=== PATIENT | male | born 1955 | race Caucasian/White ===

== ENCOUNTER → 2023-10-20 | Outpatient (CLI) | payer BC ==
[2023-10-21 02:35] LABS: Basophils # (A) 0.04 X 10*3/uL (0.00-0.10); Basophils % (A) 0.5 %; Eosinophils # (A) 0.27 X 10*3/uL (0.04-0.35); Eosinophils % (A) 3.5 %; HCT 40.9 % (39.6-50.0); HGB 13.7 g/dL (13.0-17.0); Lymphocytes # (A) 1.42 X 10*3/uL (0.90-5.00); Lymphocytes % (A) 18.2 %; MCH 32.2 pg (27.0-32.0); MCHC 33.5 g/dL (32.0-37.0); MCV 96.2 FL (80.0-97.0); Mean Platelet Volume 11.1 FL (9.5-12.2); Monocytes # (A) 0.97 X 10*3/uL (0.20-1.00); Monocytes % (A) 12.4 %; NRBC Per 100 WBC 0 X 10*3/uL (0.00-0.01); Neutrophils # (A) 5.05 X 10*3/uL (1.80-7.70); Neutrophils % (A) 64.8 %; Platelet Count 242 X 10*3/uL (140-440); RBC 4.25 X 10*6/uL (4.40-5.60)
== END | disposition home or self-care (01) ==
LOC: LABPAT 16:14
PROVIDERS: ATTEND Orthopaedic Surgery
DX: Z01.818 Encounter for other preprocedural examination (principal); I49.3 Ventricular premature depolarization
CPT/HCPCS: 85025; 86850; 86900; 86901; 93005

== ENCOUNTER 2023-11-01 07:07 | Observation (INO) | payer BC ==
[2023-10-31 11:35] VITALS: BMI 22.5
[~2023-11-01 07:07] MED LIST: MIDAZOLAM 2 MG/2 ML VIAL IV PRN
[2023-11-01] MEDS: LACTATED RINGERS 1,000 ML IV SCH ×2 (08:00→14:50)
[2023-11-01] MEDS: DEXAMETHASONE SOD PHOSPHATE 4 MG/ML 1 ML VIAL IV ONE (08:16)
[2023-11-01] MEDS: ONDANSETRON 4 MG/2 ML VIAL IVP ONE ×2 (08:16→10:31)
[2023-11-01] MEDS: HEPARIN SODIUM,PORCINE 5,000 UNIT/ML 1 ML VIAL SQ PRN (08:16)
[2023-11-01] MEDS: ACETAMINOPHEN TAB 500 MG TAB PO PRN (08:16)
[2023-11-01] MEDS ORDERED: KETAMINE HCL IN 0.9 % NACL 50 MG/5 ML SYRINGE ONE (08:30)
[2023-11-01] MEDS ORDERED: KETOROLAC 15 MG/ML 1 ML VIAL ONE (08:30)
[2023-11-01] MEDS ORDERED: SUCCINYLCHOLINE CHLORIDE 200 MG/10 ML VIAL IV ONE (08:30)
[2023-11-01] MEDS ORDERED: NEOSTIGMINE 1 MG/ML 10 ML VIAL ONE (08:30)
[2023-11-01] MEDS ORDERED: PROPOFOL 10 MG/ML 20 ML VIAL IV ONE (08:30)
[2023-11-01] MEDS ORDERED: MIDAZOLAM 2 MG/2 ML VIAL ONE (08:30)
[2023-11-01] MEDS ORDERED: LIDOCAINE 1% INJ 10MG/ML (20 ML MDV) ONE (08:30)
[2023-11-01] MEDS ORDERED: fentaNYL (PF) 50 MCG/ML 2 ML AMP ONE (08:30)
[2023-11-01] MEDS ORDERED: ROCURONIUM 10 MG/ML (5 ML VIAL) IV ONE (08:30)
[2023-11-01] MEDS ORDERED: GLYCOPYRROLATE 0.2 MG/ML 2 ML VIAL ONE (08:30)
[2023-11-01] MEDS: LIDOCAINE 1%-EPI 1:100,000 20 ML VIAL SQ ONE (09:04)
[2023-11-01] MEDS ORDERED: HYDROmorphone 1 MG/ML 1 ML SYRINGE IVP PRN (09:37)
[2023-11-01] MEDS ORDERED: NALOXONE 0.4 MG/ML 1 ML VIAL IV PRN (09:37)
[2023-11-01] MEDS ORDERED: HYDROmorphone 0.5 MG/0.5 ML SYRINGE IVP PRN (09:37)
--- NOTE | 2023-11-01 09:37 | P.OP ---
Date of Procedure: 11/01/23 Preoperative Diagnosis: GERD Diaphragmatic hernia Postoperative Diagnosis: same Procedure(s) Performed: laparoscopic Babak fundal plication Anesthesia: JOSEPH Surgeon: David Ortega Estimated Blood Loss (ml): 5 Pathology: none sent Condition: stable Disposition: PACU Description of Procedure: The patient was placed on the operating table in the supine position. The patient received general anesthesia. And was placed in dorsal lithotomy position. The patient was prepped and draped in the usual sterile fashion. The skin incision sites were anesthetized with 1% local Xylocaine. The skin was incised in the left periumbilical area and then using a blade less 5 mm trocar under direct visualization panel cavity was entered. After adequate insufflation the laparoscope was then placed into the peritoneal cavity. Next a 5 mm trochars placed in the right epigastric position. Another 5 millimeter trocar the right lateral position. Another 5 millimeter trocar in the left lateral position a 5 mm trocar is placed in the left epigastric position. And then the initial 5 mm trocar was exchanged for a 10 mm trocar. The left lateral lobe liver was retracted. The hernia was seen. The crural defect was then dissected using the Harmonic scissors device. A 360 crural dissection was performed the esophagus stomach was reduced back into the peritoneal Cavity. The crural defect was then closed using 2-0 Ethibond suture. Next the fundus of the stomach was mobilized using the Richmond scissors device. and then a 58- Uzbek bougie dilator was placed oropharynx passed into the esophagus and stomach the fundal plication wrap was then performed by grasping the fundus posteriorly and bringing it around the esophagus and stomach fundoplication was then performed using 2-0 Ethibond suture. Care was taken that the fundal location rested over top of the intra-abdominal esophagus. There was no injury seen to the stomach or esophagus. The dilator was then withdrawn. The abdomen was irrigated there is no bleeding seen. The trochars were then withdrawn and then skin incision sites were closed using 3-0 Monocryl suture Steri-Strips are applied. Patient thought procedure well and sent to recovery room in stable condition.
[2023-11-01] MEDS: IV FLUID CONTINUATION 1,000 ML IV ONE (09:46)
[2023-11-01] MEDS: droPERidol 5 MG/2 ML VIAL IVP ONE (09:54)
[2023-11-01] MEDS: hydrALAZINE HCL 20 MG/ML 1 ML VIAL IV ONE (10:02)
[2023-11-01] MEDS: METOPROLOL TARTRATE 5 MG/5 ML VIAL IVP ONE (10:20)
[2023-11-01] MEDS: HYDROmorphone 0.5 MG/0.5 ML SYRINGE IVP PRN (10:44)
[2023-11-01] MEDS: LABETALOL 5 MG/ML VIAL MDV IV ONE ×2 (11:44)
[2023-11-01] MEDS: KETOROLAC 15 MG/ML 1 ML VIAL IVP SCH (13:52)
[2023-11-01] MEDS: SIMETHICONE 40 MG/0.6 ML DROPS 2,000 MG/30 ML BOTTLE PO SCH (14:48)
[2023-11-01] MEDS: ONDANSETRON 4 MG/2 ML VIAL IVP PRN (14:59)
[2023-11-01] MEDS: hydrALAZINE HCL 20 MG/ML 1 ML VIAL IVP STA (16:30)
[2023-11-02] MEDS: MULTIVITAMINS, THERA 1 EACH TAB PO SCH (08:13)
[2023-11-02] MEDS: ENOXAPARIN 40 MG/0.4 ML SYRINGE SQ SCH (08:13)
[2023-11-02] MEDS: PANTOPRAZOLE 40 MG TABLET PO SCH (08:13)
[2023-11-02] MEDS: HYDROcodone/APAP 5-325MG 1 EACH TAB PO PRN (08:20)
[2023-11-02 08:59] VITALS: RESP 20
[2023-11-02] MEDS: LOSARTAN 25 MG TAB PO STA (10:33)
[2023-11-02 11:06] LABS: African American GFR (CKD) >90 (>60 ml/min/1.73 sqM); Anion Gap 7 mmol/L; Blood Urea Nitrogen 6 mg/dL (9-20); Calcium 9.2 mg/dL (8.4-10.2); Carbon Dioxide 25 mmol/L (22-30); Chloride 96 mmol/L (98-107); Glucose 105 mg/dL (74-99); Magnesium 1.5 mg/dL (1.6-2.3); Non-African American GFR(CKD) >90 (>60 ml/min/1.73 sqM); Potassium 4.2 mmol/L (3.5-5.1); Sodium 128 mmol/L (137-145)
[2023-11-02] MEDS: hydrALAZINE HCL 25 MG TAB PO STA (11:18)
[2023-11-02] MEDS: MAGNESIUM SULFATE-D5W PMX 1 GM in DEXTROSE/WATER 1 100ML.BAG IVPB SCH (11:23)
[2023-11-02] MEDS: SODIUM CHLORIDE 0.9% 1,000 ML IV ONE (13:59)
[2023-11-02] MEDS: ACETAMINOPHEN TAB 325 MG TAB PO PRN (14:03)
[2023-11-02] MEDS: hydrALAZINE HCL 20 MG/ML 1 ML VIAL IVP PRN (14:03)
--- NOTE | 2023-11-02 14:55 | P.CONS ---
History of Present Illness - Reason for Consult Consult date: 11/02/23 medical management Requesting physician: David Ortega - Chief Complaint Hypertension - History of Present Illness This is a pleasant 68 year old male with medical history of lymphoma currently in remission, gastroesophageal reflux disease. Patient has had symptoms of marie sea and vomiting of gastric fluids since last April was found to have a large paraesophageal hiatal hernia and comes in for elective repair he is evaluated today postoperative day #1. Patient has been having elevated blood pressures 200s over 100s preoperatively. He remains elevated postoperatively denying any chest pain denying dizziness or lightheadedness he is not having any palpitations or shortness of breath. After further discussion patient reveals that he is a daily beer drinker states that he drinks about 3-4 beers per day if not more additionally he has an occasional marijuana use. He has not had a drink of alcohol in the last 2 days and may be contributing to the hypertension. Patient states that he has anxiety being in the hospital and feels this is also contributing to his blood pressure. He was given IV hydralazine as well as oral losartan and oral hydralazine and blood pressure is down into the 160s over 90s. His follow-up blood work reveals a sodium level of 128 and this is likely due to the chronic alcohol use. Discussed with patient the importance of total alc ohol cessation and patient verbalizes understanding. Patient does follow-up with a certified industrial hygienist, Dr Ferrari about every 6 months, states that about 2 years ago he was hospitalized at [facility] due to cardiac complications from chemotherapy and states that he was told he had congestive heart failure at that time. Echocardiogram reports are unavailable and patient does not appear to be in volume overload at this time. He reports significant improvement in his symptoms of nausea and acid reflux postoperatively and has been tolerating a liquid diet. He is anticipating discharge home today. REVIEW OF SYSTEMS: CO postNSTITUTIONAL: No fever, no malaise, no fatigue. HEENT: No recent visual problems or hearing problems. Denied any sore throat. CARDIOVASCULAR: No chest pain, orthopnea, PND, no palpitations, no syncope. PULMONARY: No shortness of breath, no cough, no hemoptysis. GASTROINTESTINAL: No diarrhea, no nausea, no vomiting, no abdominal pain. NEUROLOGICAL: No headaches, no weakness, no numbness. HEMATOLOGICAL: Denies any bleeding or petechiae. GENITOURINARY: Denies any burning micturition, frequency, or urgency. MUSCULOSKELETAL/RHEUMATOLOGICAL: Denies any joint pain, swelling, or any muscle pain. ENDOCRINE: Denies any polyuria or polydipsia. The rest of the 14-point review of systems is negative. PHYSICAL EXAMINATION: GENERAL: The patient is alert and oriented x3, not in any acute distress. Well developed, well nourished. HEENT: Pupils are round and equally reacting to light. EOMI. No scleral icterus. No conjunctival pallor. Normocephalic, atraumatic. No pharyngeal erythema. No thyromegaly. CARDIOVASCULAR: S1 and S2 present. No murmurs, rubs, or gallops. PULMONARY: Chest is clear to auscultation, no wheezing or crackles. ABDOMEN: Soft, nontender, nondistended, normoactive bowel sounds. No palpable organomegaly. MUSCULOSKELETAL: No joint swelling or deformity. EXTREMITIES: No cyanosis, clubbing, or pedal edema. NEUROLOGICAL: Gross neurological examination did not reveal any focal deficits. SKIN: No rashes. 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 Likely a component of anxiety from hospitalization. Patient has been started on amlodipine 5 mg daily and instructed to check his blood pressure daily. He is given parameters to hold medication for blood pressure less than 110/60s. Follow up with his certified industrial hygienist on discharge. -Hx of lymphoma with prior chemotherapy currently in remission -Former smoker -Occasional marijuana use GI prophylaxis DVT prophylaxis as per primary Full Code Medically patient is cleared for discharge with the above mentioned recommen dations. He will receive a 1 liter fluid bolus for the hyponatremia and recommend to repeat BMP in 2 to 3 days outpatient. Follow up closely with Dr. Tay in 1 to 2 days. Follow up with your known certified industrial hygienist Dr. Ferrari in 1 week on discharge. The impression and plan of care has been dictated by Juliana Lozada, Nurse Practitioner as directed. Dr. Nayan MD I have performed a history and physical examination and medical decision making of this patient, discussed the same with the dictator, and agree with the dictators assessment and plan as written, documented as a scribe. Based on total visit time, I have performed more than 50% of this visit. Past Medical History Past Medical History: Cancer, GERD/Reflux Additional Past Medical History / Comment(s): lymphoma 2021, nausea, vomiting symptoms since 03/26, hiatal hernia, sees certified industrial hygienist, Dr. Ferrari, every 6 months but states he has no cardiac problems - last visit 05/26 History of Any Multi-Drug Resistant Organisms: None Reported Additional Past Surgical History / Comment(s): EGD/colonoscopy, hemorrhoidecto my, mediport to right side. Past Anesthesia/Blood Transfusion Reactions: No Reported Reaction Past Psychological History: No Psychological Hx Reported Smoking Status: Former smoker Additional Past Alcohol Use History / Comment(s): quit smoking 2018, smoked 10- 15 cigarettes/day x 10 yrs Past Drug Use History: Marijuana Additional Drug Use History / Comment(s): smokes marijuana daily - Past Family History Sister(s) Family Medical History: Cancer Additional Family Medical History / Comment(s): unsure of type of cancer but thinks lymphoma Medications and Allergies Home Medications Medication Instructions Recorded Confirmed Type Acetaminophen Tab [Tylenol Tab] 1,000 mg PO Q6HR PRN 10/27/23 11/01/23 History Multivitamins, Thera [Multivitamin 1 tab PO DAILY 10/27/23 11/01/23 History (formulary)] Omeprazole 20 mg PO DAILY 10/27/23 11/01/23 History Prochlorperazine [Compazine] 10 mg PO Q6H PRN 10/27/23 11/01/23 History amLODIPine [Norvasc] 5 mg PO DAILY #30 tab 11/02/23 Rx Allergies Allergy/AdvReac Type Severity Reaction Status Date / Time No Known Allergies Allergy Verified 11/01/23 08:02 Physical Exam Vitals: Vital Signs Temp Pulse Resp BP Pulse Ox 11/02/23 07:35 98.9 F 82 20 165/100 98 11/02/23 01:32 98.6 F 96 16 147/87 100 11/01/23 17:12 98.1 F 101 H 20 186/91 99 11/01/23 16:13 197/106 11/01/23 13:54 97.6 F 113 H 20 209/125 98 11/01/23 12:51 77 16 164/88 99 11/01/23 12:45 96 16 180/91 99 11/01/23 12:15 85 16 159/88 100 11/01/23 12:00 88 16 173/92 100 11/01/23 11:45 107 H 16 163/80 100 11/01/23 11:30 109 H 16 179/89 100 11/01/23 11:15 106 H 16 176/88 100 11/01/23 11:00 104 H 16 180/91 100 11/01/23 10:45 82 16 182/86 100 11/01/23 10:30 120 H 16 185/82 100 11/01/23 10:15 92 16 195/106 100 11/01/23 10:00 83 16 211/98 100 Intake and Output 11/01/23 11/02/23 11/02/23 22:59 06:59 14:59 Intake Total 1500 Balance 1500 Intake: Intake, IV Titration 1500 Amount Lactated Ringers 1,000 ml 1500 @ 125 mls/hr IV .Q8H [facility] Rx#:[id number] Other: # Voids 2 4 Results CBC & Chem 7: 11/02/23 10:29
--- NOTE | 2023-11-02 15:01 | P.DS ---
Providers Date of admission: 11/02/23 11:29 Expected date of discharge: 11/02/23 Attending physician: David Ortega Consults: 11/01/23 09:37 Consult Physician Routine Consulting Provider: Luis Carlos Allan Consult Reason/Comments: medical management Do you want consulting provider notified?: Yes Primary care physician: Corine Tay MD Hospital Course: Discharge diagnosis 1. GERD and diaphragmatic hernia Hospital course This is a 68-year-old male with history of GERD and diaphragmatic hernia. He is status post laparoscopic Niesen fundoplication. Patient is tolerating diet. His pain is controlled. He has been up and ambulating. He is afebrile. Denies any difficulty urinating. He is stable for discharge. Patient seen and examined by medical service. They have also cleared patient for discharge. Please refer to chart for any further details. Physician Wheel Blocker note has been reviewed by physician. Signing provider agrees with the documented findings, assessment, and plan of care. Patient Condition at Discharge: Stable Plan - Discharge Summary Discharge Rx Participant: No New Discharge Prescriptions: New amLODIPine [Norvasc] 5 mg PO DAILY #30 tab HYDROcodone/APAP 5-325MG [[place] 5-325] 1 tab PO Q6HR PRN 3 Days #12 tab PRN Reason: Pain Continue Prochlorperazine [Compazine] 10 mg PO Q6H PRN PRN Reason: Nausea Acetaminophen Tab [Tylenol] 1,000 mg PO Q6HR PRN PRN Reason: Pain Multivitamins, Thera [Multivitamin (formulary)] 1 tab PO DAILY Omeprazole 20 mg PO DAILY Discharge Medication List Acetaminophen Tab [Tylenol] 1,000 mg PO Q6HR PRN 10/27/23 [History] Multivitamins, Thera [Multivitamin (formulary)] 1 tab PO DAILY 10/27/23 [History] Omeprazole 20 mg PO DAILY 10/27/23 [History] Prochlorperazine [Compazine] 10 mg PO Q6H PRN 10/27/23 [History] HYDROcodone/APAP 5-325MG [[place] 5-325] 1 tab PO Q6HR PRN 3 Days #12 tab 11/02/23 [Rx] amLODIPine [Norvasc] 5 mg PO DAILY #30 tab 11/02/23 [Rx] Follow up Appointment(s)/Referral(s): Jeanne Ferrari MD [REFERRING] - 1 Week Corine Tay MD [Primary Care Provider] - 1-2 Days David Ortega MD [STAFF PHYSICIAN] - 1 Week Ambulatory/Diagnostic Orders: Basic Metabolic Panel [LAB.AMB] Time Frame: 2 Days, Location: None Selected Activity/Diet/Wound Care/Special Instructions: Follow up with your car rental agent in 1 week on discharge. Continue on amlodipine daily and recommending to check your blood pressure daily in the AM. If blood pressure is below 110/60s recommend to hold the amlodipine for that daily dose. Keep a log of blood pressure for follow up with your PCP and car rental agent you may not need to continue taking this medication if your blood pressure normalizes. Repeat blood work in 2 to 3 days to monitor sodium level. No driving while taking [place] No lifting over 10 pounds You may shower. No soaking or tub baths for 2 weeks Very light activity until you are reevaluated at your follow up appointment with your surgeon Continue full liquid diet x 2 weeks Discharge/Stand Alone Forms: AA Meetings [facility] Discharge Disposition: HOME SELF-CARE
[2023-11-02] MEDS ORDERED: Potassium Replacement Protocol 1 EACH MISC MISCELLANE PRN (15:08)
[2023-11-02] MEDS: POTASSIUM CHLORIDE ER 20 MEQ TAB.ER PO ONE (15:16)
[2023-11-02 16:06] VITALS: BP 168/102; PULSE 93; TEMP 98.3
== END 2023-11-02 15:34 | disposition home or self-care (01) ==
LOC: OR 07:07 → 4SSUR 09:31 → OR 11-02 11:29 → 4SSUR 11-02 11:29
PROVIDERS: ADMIT Surgery; ATTEND Surgery
DX: K21.9 Gastro-esophageal reflux disease without esophagitis (principal); K44.9 Diaphragmatic hernia without obstruction or gangrene; K29.70 Gastritis, unspecified, without bleeding; E87.1 Hypo-osmolality and hyponatremia; I10 Essential (primary) hypertension; F12.90 Cannabis use, unspecified, uncomplicated; Z85.72 Personal history of non-Hodgkin lymphomas; Z87.891 Personal history of nicotine dependence; Z92.21 Personal history of antineoplastic chemotherapy; Z79.899 Other long term (current) drug therapy
CPT/HCPCS: 96376 ×2; 96361; 96365; 96366; 96372; 96375; 80048; 83735; 43280; G0378; J2250; J0330; J0360 ×2; J1644; J1100; J2710; J0690; J2405 ×2; J2001; J1650; J3010; J3475; J1885 ×2; J2704; J1170; J1790; J1920

== ENCOUNTER → 2024-01-20 | Outpatient (CLI) | payer BC ==
[2024-01-20 20:23] LABS: HCT 38.3 % (39.6-50.0); HGB 13.2 g/dL (13.0-17.0); MCHC 34.5 g/dL (32.0-37.0); Mean Platelet Volume 10.9 FL (9.5-12.2); NRBC Per 100 WBC 0 X 10*3/uL (0.00-0.01); Platelet Count 240 X 10*3/uL (140-440); RBC 4.12 X 10*6/uL (4.40-5.60); RDW 13.2 % (11.5-14.5); WBC 7.67 X 10*3/uL (4.50-10.00)
== END | disposition home or self-care (01) ==
LOC: LABPAT 13:56
PROVIDERS: ATTEND Surgery
DX: Z01.812 Encounter for preprocedural laboratory examination (principal)
CPT/HCPCS: 85027

== ENCOUNTER 2024-01-24 05:37 | Day surgery (SDC) | payer BC ==
[2024-01-18 13:23] VITALS: BMI 22.3
[2024-01-24] MEDS ORDERED: droPERidol 5 MG/2 ML VIAL IVP ONE (05:46)
[2024-01-24] MEDS ORDERED: LIDOCAINE 1% (10MG/ML) FOR IV START INTRADERMA PRN (05:46)
[2024-01-24 06:30] VITALS: TEMP 97.2
[2024-01-24] MEDS: LACTATED RINGERS 1,000 ML IV SCH (06:50)
[2024-01-24] MEDS: DEXAMETHASONE SOD PHOSPHATE 4 MG/ML 1 ML VIAL IV ONE (06:50)
[2024-01-24] MEDS: IV FLUID CONTINUATION 1,000 ML IV ONE ×2 (06:50→11:39)
[2024-01-24] MEDS: ONDANSETRON 4 MG/2 ML VIAL IVP ONE (06:50)
[2024-01-24] MEDS: MIDAZOLAM 2 MG/2 ML VIAL IVP ONE (06:57)
--- NOTE | 2024-01-24 07:12 | P.ANPRN ---
Procedure Note - Anesthesia - Nerve Block Performed Bilateral Rectus Abdominis Single Time Out Performed: Yes Date of Procedure: 01/24/24 Procedure Start Time: 06:57 Procedure Stop Time: 07:02 Location of Patient: PreOp Indication: Acute Post-Operative Pain, Analgesia, Requested by Surgeon Sedation Type: Sedate with meaningful contact maintained Preparation: Sterile Prep Position: Supine Catheter: None Needle Types: Pajunk Needle Gauge: 21 Ultrasound used to visualize needle placement: Yes Ultrasound used to observe medication spread: Yes Injectate: 0.5% Ropivacaine (see comment for volume) (Ropiv 18ml+Decadron 4mg---Each side) Blood Aspirated: No Pain Paresthesia on Injection Noted: No Resistance on Injection: Normal Image Stored and Saved: Yes Events: Uneventful and Well Tolerated
[2024-01-24] MEDS ORDERED: SUCCINYLCHOLINE CHLORIDE 200 MG/10 ML VIAL IV ONE (07:34)
[2024-01-24] MEDS ORDERED: KETAMINE HCL IN 0.9 % NACL 50 MG/5 ML SYRINGE ONE (07:34)
[2024-01-24] MEDS ORDERED: NEOSTIGMINE 1 MG/ML 10 ML VIAL ONE (07:34)
[2024-01-24] MEDS ORDERED: ROCURONIUM 10 MG/ML (5 ML VIAL) IV ONE (07:34)
[2024-01-24] MEDS ORDERED: PROPOFOL 10 MG/ML 20 ML VIAL IV ONE (07:34)
[2024-01-24] MEDS ORDERED: fentaNYL (PF) 50 MCG/ML 2 ML AMP ONE (07:34)
[2024-01-24] MEDS ORDERED: KETOROLAC 15 MG/ML 1 ML VIAL ONE (07:34)
[2024-01-24] MEDS ORDERED: LIDOCAINE 1% INJ 10MG/ML (20 ML MDV) ONE (07:34)
[2024-01-24] MEDS ORDERED: DEXAMETHASONE SOD PHOSPHATE 4 MG/ML 1 ML VIAL ONE (07:34)
[2024-01-24] MEDS ORDERED: ROPIVACAINE 5 MG/ML 30 ML VIAL ONE (07:34)
[2024-01-24] MEDS ORDERED: MIDAZOLAM 2 MG/2 ML VIAL ONE (07:34)
[2024-01-24] MEDS ORDERED: GLYCOPYRROLATE 0.2 MG/ML 2 ML VIAL ONE (07:34)
[2024-01-24] MEDS: ACETAMINOPHEN TAB 500 MG TAB PO PRN (07:35)
[2024-01-24] MEDS: LIDOCAINE 1%-EPI 1:100,000 20 ML VIAL SQ ONE ×2 (07:37→07:55)
[2024-01-24] MEDS: HEPARIN SODIUM,PORCINE 5,000 UNIT/ML 1 ML VIAL SQ STA (07:39)
--- NOTE | 2024-01-24 08:44 | P.GSHP ---
History of Present Illness H&P Date: 01/24/24 Chief Complaint: Ventral hernia This is a 68-year-old male with a 3 cm epigastric ventral hernia. Patient presents today for laparoscopic robotic assisted repair. Past Medical History Past Medical History: Cancer, GERD/Reflux, Hearing Disorder / Deafness Additional Past Medical History / Comment(s): Stomach pain and nausea daily around 2-3 am. Hx Lymphoma 2021. Nausea, vomiting symptoms since 03/26. Hard of hearing. History of Any Multi-Drug Resistant Organisms: None Reported Additional Past Surgical History / Comment(s): EGD/colonoscopy, hemorrhoidectom y, mediport to right side, hiatal hernia repair. Past Anesthesia/Blood Transfusion Reactions: No Reported Reaction Past Psychological History: No Psychological Hx Reported Smoking Status: Former smoker Past Alcohol Use History: Occasional Additional Past Alcohol Use History / Comment(s): Quit smoking in 2018, smoked 10-15 cigarettes/day for 10 yrs. Past Drug Use History: Marijuana Additional Drug Use History / Comment(s): Smokes marijuana daily. Aware no use 24 hrs prior to procedure. - Past Family History Sister(s) Family Medical History: Cancer Additional Family Medical History / Comment(s): Unsure of type of cancer but thinks lymphoma. Medications and Allergies Home Medications Medication Instructions Recorded Confirmed Type Prochlorperazine [Compazine] 10 mg PO Q6H PRN 10/27/23 01/24/24 History Allergies Allergy/AdvReac Type Severity Reaction Status Date / Time No Known Allergies Allergy Verified 01/24/24 06:26 Surgical - Exam Vital Signs Temp Pulse Resp BP Pulse Ox 97.2 F L 83 18 161/95 100 01/24/24 06:27 01/24/24 06:27 01/24/24 06:27 01/24/24 06:27 01/24/24 06:27 - General well developed, well nourished, no distress - Eyes PERRL - ENT normal pinna - Neck no masses - Respiratory normal expansion - Cardiovascular Rhythm: regular - Abdomen Abdomen: soft, non tender Assessment and Plan Assessment: Ventral hernia. Will perform laparoscopic robotic assisted repair.
--- NOTE | 2024-01-24 08:46 | P.OP ---
Date of Procedure: 01/24/24 Preoperative Diagnosis: Ventral hernia Postoperative Diagnosis: Ventral hernia Procedure(s) Performed: Laparoscopic robotic assisted pair of ventral hernia Transversus abdominis plane block Anesthesia: JOSEPH Surgeon: David Ortega Estimated Blood Loss (ml): 5 Pathology: none sent Condition: stable Disposition: PACU Description of Procedure: The patient was placed on the operating table in the supine position. He received general anesthesia. His abdomen was prepped and draped usual fashion. Using a 5 mm optical trocar under direct visualization the peritoneal cavity was entered in the left upper quadrant. The abdomen was then insufflated. The laparoscope was placed back into the perineal cavity. Next a 12 mm robotic trocar was placed in the left lower quadrant and a 8 mm robotic trocar was placed near the umbilicus. Tion. The original 5 mm trocar was exchanged for a 8 mm robotic trocar. The patient's placed in the left side up position. And the patient was docked to the robot. The ventral hernia was visualized. Using hook cautery the peritoneum over the incisional hernia was excised. The fascial opening was repaired using 0V LOC suture. Next a piece of 11 cm round ventral light ST mesh was placed into the. Cavity and secured with 2 OV lock suture. A four-quadrant transversus abdominis plane block was then performed with 1% local Xylocaine. The patient was undocked the robot. The needles were retrieved. The fascia of the 12 mm trocar site was closed with 0 Ethibond suture. Skin was closed interrupted 3-0 Monocryl suture. Dermabond dressings was applied. Patient tolerated procedure well and was sent to recovery room stable condition.
[2024-01-24] MEDS: HYDROmorphone 0.5 MG/0.5 ML SYRINGE IVP PRN (08:54)
[2024-01-24] MEDS: LABETALOL SYRINGE 5 MG/ML (4 ML SYR) IVP STA (09:06)
[2024-01-24 09:53] VITALS: RESP 16
[2024-01-24 11:36] VITALS: BP 171/99; PULSE 65
== END 2024-01-24 12:24 | disposition home or self-care (01) ==
LOC: OR 05:37
PROVIDERS: ATTEND Surgery
DX: K43.9 Ventral hernia without obstruction or gangrene (principal); K21.9 Gastro-esophageal reflux disease without esophagitis; I25.42 Coronary artery dissection; C00-D49 Neoplasms; H91.90 Unspecified hearing loss, unspecified ear; Z85.9 Personal history of malignant neoplasm, unspecified; Z87.891 Personal history of nicotine dependence; Z86.59 Personal history of other mental and behavioral disorders; Z79.899 Other long term (current) drug therapy
CPT/HCPCS: 64488; 49593; C1781; J2250; J0330; J1644; J1100; J2710; J0690; J2405; J2001; J3010; J2795; J1885; J2704; J1170; J1920; J1596

== ENCOUNTER 2024-01-25 02:51 | Inpatient (IN) | payer BC, MEDICARE ==
--- NOTE | 2024-01-25 03:38 | ED ---
Nausea/Vomiting/Diarrhea HPI <Andres Christian - Last Filed: 01/25/24 08:50> - General Source: patient, RN notes reviewed, old records reviewed Mode of arrival: ambulatory Limitations: no limitations - History of Present Illness MD complaint: nausea, vomiting, abdominal pain -: days(s) Description of Vomiting: food contents Description of Diarrhea: water, tarry Location: diffuse Severity: moderate Severity scale (1-10): 6 Quality: sharp, constant Consistency: constant Improves with: none Worsens with: none Associated Symptoms: denies other symptoms <Elliot Wright - Last Filed: 01/26/24 22:23> - General Chief complaint: Nausea/Vomiting/Diarrhea Stated complaint: post surgery complications, N&V, pain Time Seen by Provider: 01/25/24 03:01 - History of Present Illness Initial comments: This is a 68-year-old male to the ER for evaluation postoperative pain abdominal pain no chest pain or shortness of breath no other complaints, this patient has increasing weakness after recent abdominal surgery with Dr. Chau. Patient had hiatal hernia followed by abdominal wall hernia repair. Patient is having persistent weakness and severe abdominal pain today (Elliot Wright) - Related Data Home Medications Medication Instructions Recorded Confirmed Prochlorperazine [Compazine] 10 mg PO Q6H PRN 10/27/23 01/25/24 Simethicone [Gas-X] 125 mg PO QID PRN 01/25/24 01/25/24 Previous Rx's Medication Instructions Recorded oxyCODONE HCL [OxyIR] 5 mg PO Q6H PRN 3 Days #15 tab 01/24/24 Allergies Allergy/AdvReac Type Severity Reaction Status Date / Time No Known Allergies Allergy Verified 01/25/24 10:07 Review of Systems ROS Other: All systems not noted in ROS Statement are negative. <Andres Christian - Last Filed: 01/25/24 08:50> ROS Other: All systems not noted in ROS Statement are negative. <Elliot Wright - Last Filed: 01/26/24 22:23> ROS Statement: Those systems with pertinent positive or pertinent negative responses have been documented in the HPI. Past Medical History Past Medical History: Cancer, GERD/Reflux, Hearing Disorder / Deafness Additional Past Medical History / Comment(s): Stomach pain and nausea daily around 2-3 am. Hx Lymphoma 2021. Nausea, vomiting symptoms since 03/26. Hard of hearing. History of Any Multi-Drug Resistant Organisms: None Reported Past Surgical History: Hernia Repair Additional Past Surgical History / Comment(s): EGD/colonoscopy, hemorrhoidectomy, mediport to right side, hiatal hernia repair. Past Anesthesia/Blood Transfusion Reactions: No Reported Reaction Past Psychological History: No Psychological Hx Reported Smoking Status: Former smoker Past Alcohol Use History: Occasional Past Drug Use History: Marijuana - Past Family History Sister(s) Family Medical History: Cancer Additional Family Medical History / Comment(s): Unsure of type of cancer but thinks lymphoma. <Elliot Wright - Last Filed: 01/26/24 22:23> General Exam Limitations: no limitations General appearance: alert, in no apparent distress, anxious, lethargic, in distress, cachectic Head exam: Present: atraumatic, normocephalic, normal inspection Eye exam: Present: normal appearance, PERRL, EOMI. Absent: scleral icterus, conjunctival injection, periorbital swelling ENT exam: Present: normal exam, mucous membranes moist Neck exam: Present: normal inspection. Absent: tenderness, meningismus, lymphadenopathy Respiratory exam: Present: normal lung sounds bilaterally. Absent: respiratory distress, wheezes, rales, rhonchi, stridor Cardiovascular Exam: Present: regular rate, normal rhythm, normal heart sounds. Absent: systolic murmur, diastolic murmur, rubs, gallop, clicks GI/Abdominal exam: Present: soft, normal bowel sounds. Absent: distended, tenderness, guarding, rebound, rigid Extremities exam: Present: normal inspection, full ROM, normal capillary refill. Absent: tenderness, pedal edema, joint swelling, calf tenderness Back exam: Present: normal inspection Neurological exam: Present: alert, oriented X3, CN II-XII intact Psychiatric exam: Present: normal affect, normal mood Skin exam: Present: warm, dry, intact, normal color. Absent: rash <Elliot Wright - Last Filed: 01/26/24 22:23> Course <Elliot Wright - Last Filed: 01/26/24 22:23> Vital Signs 07/01/25/24 01/25/24 02:56 03:30 04:45 Temperature 97.9 F Pulse Rate 105 H 80 98 Respiratory 18 20 18 Rate Blood Pressure 151/104 129/72 124/80 O2 Sat by Pulse 100 96 98 Oximetry 01/25/24 01/25/24 01/25/24 06:58 09:00 10:00 Temperature Pulse Rate 71 89 81 Respiratory 18 16 18 Rate Blood Pressure 115/72 108/72 110/74 O2 Sat by Pulse 99 99 99 Oximetry - Reevaluation(s) Reevaluation #1: 01/25/24 03:37 Records reviewed (Elliot Wright) Reevaluation #2: States he is starting to feel improved (Elliot Wright) Reevaluation #3: Informed of results and questions answered (Elliot Wright) Reevaluation #4: Was pt. sent in by a medical professional or institution (, PA, AGRICULTURE LABORATORY TECHNICIAN, urgent care, hospital, or shelter...) When possible be specific @ -no Did you speak to anyone other than the patient for history (EMS, parent, family, police, friend...)? What history was obtained from this source @ -no Did you review nursing and triage notes (agree or disagree)? Why? @ -agree Are old charts reviewed (outside hosp., previous admission, EMS record, old EKG, old radiological studies, urgent care reports/EKG's, shelter records)? Report findings @ -yes Differential Diagnosis (chest pain, altered mental status, abdominal pain women, abdominal pain men, vaginal bleeding, weakness, fever, dyspnea, syncope, headache, dizziness, GI bleed, back pain, seizure, CVA, palpatations, mental health, musculoskeletal)? @ -prior EKG interpreted by me (3pts min.). @ -yes X-rays interpreted by me (1pt min.). @ -yes negative for acute disease CT interpreted by me (1pt min.). @ -Negative for acute disease U/S interpreted by me (1pt. min.). @ -no What testing was considered but not performed or refused? (CT, X-rays, U/S, labs)? Why? @ -none What meds were considered but not given or refused? Why? @ -none Did you discuss the management of the patient with other professionals (professionals i.e. , PA, AGRICULTURE LABORATORY TECHNICIAN, lab, RT, psych nurse, social media content specialist, farmworker vegetable, teacher, public service officer, community case manager)? Give summary @ -no Was smoking cessation discussed for >3mins.? @ -no Was critical care preformed (if so, how long)? @ -no Were there social determinants of health that impacted care today? How? (Homelessness, low income, unemployed, alcoholism, drug addiction, transportation, low edu. Level, literacy, decrease access to med. care, care home, rehab)? @ -none Was there de-escalation of care discussed even if they declined (Discuss DNR or withdrawal of care, Hospice)? DNR status @ -no What co-morbidities impacted this encounter? (DM, HTN, Smoking, COPD, CAD, Cancer, CVA, ARF, Chemo, Hep., AIDS, mental health diagnosis, sleep apnea, morbid obesity)? @ -none Was patient admitted / discharged? Hospital course, mention meds given and route, prescriptions, significant lab abnormalities, going to OR and other pertinent info. @ - 68 male to ER for evaluation abdominal pain nausea vomiting weakness recent surgical treatment of the abdomen with decreased appetite patient has been not feeling well getting progressively worse patient will be admitted for elevated troponin non-STEMI Admitted Undiagnosed new problem with uncertain prognosis? @ -no Drug Therapy requiring intensive monitoring for toxicity (Heparin, Nitro, Insul in, Cardizem)? @ -no Were any procedures done? @ -no Diagnosis/symptom? @ -non-STEMI weakness dehydration postoperative complication and pain Acute, or Chronic, or Acute on Chronic? @ -Acute Uncomplicated (without systemic symptoms) or Complicated (systemic symptoms)? @ -Complicated Side effects of treatment? @ -no Exacerbation, Progression, or Severe Exacerbation? @ -exacerbation Poses a threat to life or bodily function? How? (Chest pain, USA, AL, pneumonia, PE, COPD, DKA, ARF, appy, cholecystitis, CVA, Diverticulitis, Homicidal, Suicidal, threat to staff... and all critical care pts) @ -ye nstemi (Elliot Wright) Reevaluation #5: Differential Weakness: Hypoglycemia, shock, sepsis, hyponatremia, anemia, infection, AL, ETOH, adverse medicine reaction, overdose, stroke, this is not meant to be an all-inclusive list. (Elliot Wright) - Consultations Consultation #1: With admitting who agrees to admit this patient (Elliot Wright) Medical Decision Making - Lab Data Result diagrams: 01/25/24 04:02 01/25/24 04:02 <Andres Christian - Last Filed: 01/25/24 08:50> - Lab Data Result diagrams: 01/26/24 07:15 01/26/24 07:15 - EKG Data -: EKG Interpreted by Me (Is sinus 83 ME 173 QRS 114 QTc 467) - Radiology Data Radiology results: report reviewed (Chest x-ray CT chest abdomen pelvis negative for acute disease), image reviewed <Elliot Wright - Last Filed: 01/26/24 22:23> - Medical Decision Making Patient care signed out to me by previous shift physician, Dr. Martinez Mane. Briefly, patient 68-year-old male presents emergency department abdominal pain. Patient had recent history of significant abdominal surgeries performed by Dr. Ortega. According to signout patient did not have any chest pain or shortness of breath. He did have abnormal labs including leukocytosis, hyponatremia troponin of 0.529, BNP of 9000. He also had a lactic acidosis of 3.2. Plan at signout was to follow-up with pending labs and imaging studies. There is been extreme delays in CT radiology reads. Initial troponin was 0.529. Repeat troponin 2 hours later was 0.493. Patient reevaluated bedside at 8:49 AM. Patient interviewed states that he at no point within the last 48 hours had any chest pain shortness of breath jaw pain extremity pain or shoulder pain. He states that he is here for abdominal pain. Patient had already received IV fluids. Second troponin was decreased. Disposition options were discussed. Initially was apprehensive about being admitted for medical monitoring. Ultimately after having his conversation with his he was agreeable. Patient will be admitted observation. At this point it is unclear what is causing patient's significantly elevated troponin. He will be admitted observation consultation to cardiology. Case discussed with [facility] hospitalist for admission. (Andres Christian) 68 male to ER for evaluation abdominal pain nausea vomiting weakness recent surgical treatment of the abdomen with decreased appetite patient has been not feeling well getting progressively worse patient will be admitted for elevated troponin non-STEMI (Elliot Wright) - Lab Data Lab Results 01/25/24 01/25/24 01/25/24 Range/Units 04:02 04:02 04:02 WBC 14.5 H (3.8-10.6) k/uL RBC 4.47 (4.30-5.90) m/uL Hgb 14.2 (13.0-17.5) gm/dL Hct 43.3 (39.0-53.0) % MCV 96.9 (80.0-100.0) fL MCH 31.8 (25.0-35.0) pg MCHC 32.8 (31.0-37.0) g/dL RDW 12.8 (11.5-15.5) % Plt Count 220 (150-450) k/uL MPV 8.0 Neutrophils % 86 % Lymphocytes % 5 % Monocytes % 7 % Eosinophils % 1 % Basophils % 0 % Neutrophils # 12.4 H (1.3-7.7) k/uL Lymphocytes # 0.7 L (1.0-4.8) k/uL Monocytes # 1.1 H (0-1.0) k/uL Eosinophils # 0.2 (0-0.7) k/uL Basophils # 0.0 (0-0.2) k/uL PT 11.6 (10.0-12.5) sec INR 1.1 (<1.2) APTT 22.7 (22.0-30.0) sec D-Dimer 0.55 (<0.60) mg/L FEU Sodium 123 L (137-145) mmol/L Potassium 4.4 (3.5-5.1) mmol/L Chloride 94 L (98-107) mmol/L Carbon Dioxide 18 L (22-30) mmol/L Anion Gap 11 mmol/L BUN 7 L (9-20) mg/dL Creatinine 0.41 L (0.66-1.25) mg/dL Est GFR (CKD-EPI)AfAm >90 (>60 ml/min/1.73 sqM) Est GFR (CKD-EPI)NonAf >90 (>60 ml/min/1.73 sqM) Glucose 127 H (74-99) mg/dL Lactic Ac Sepsis Rflx Plasma Lactic Acid Michael (0.7-2.0) mmol/L Calcium 8.8 (8.4-10.2) mg/dL Phosphorus 3.3 (2.5-4.5) mg/dL Magnesium 1.2 L (1.6-2.3) mg/dL Total Bilirubin 1.1 (0.2-1.3) mg/dL AST 36 (17-59) U/L ALT 14 (4-49) U/L Alkaline Phosphatase 71 (38-126) U/L Troponin I (0.000-0.034) ng/mL NT-Pro-B Natriuret Pep 9730 pg/mL Total Protein 6.7 (6.3-8.2) g/dL Albumin 4.0 (3.5-5.0) g/dL Lipase 20 L (23-300) U/L 01/25/24 01/25/24 01/25/24 Range/Units 04:02 05:23 05:58 WBC (3.8-10.6) k/uL RBC (4.30-5.90) m/uL Hgb (13.0-17.5) gm/dL Hct (39.0-53.0) % MCV (80.0-100.0) fL MCH (25.0-35.0) pg MCHC (31.0-37.0) g/dL RDW (11.5-15.5) % Plt Count (150-450) k/uL MPV Neutrophils % % Lymphocytes % % Monocytes % % Eosinophils % % Basophils % % Neutrophils # (1.3-7.7) k/uL Lymphocytes # (1.0-4.8) k/uL Monocytes # (0-1.0) k/uL Eosinophils # (0-0.7) k/uL Basophils # (0-0.2) k/uL PT (10.0-12.5) sec INR (<1.2) APTT (22.0-30.0) sec D-Dimer (<0.60) mg/L FEU Sodium (137-145) mmol/L Potassium (3.5-5.1) mmol/L Chloride (98-107) mmol/L Carbon Dioxide (22-30) mmol/L Anion Gap mmol/L BUN (9-20) mg/dL Creatinine (0.66-1.25) mg/dL Est GFR (CKD-EPI)AfAm (>60 ml/min/1.73 sqM) Est GFR (CKD-EPI)NonAf (>60 ml/min/1.73 sqM) Glucose (74-99) mg/dL Lactic Ac Sepsis Rflx Y Plasma Lactic Acid Michael 3.2 H* (0.7-2.0) mmol/L Calcium (8.4-10.2) mg/dL Phosphorus (2.5-4.5) mg/dL Magnesium (1.6-2.3) mg/dL Total Bilirubin (0.2-1.3) mg/dL AST (17-59) U/L ALT (4-49) U/L Alkaline Phosphatase (38-126) U/L Troponin I 0.529 H* (0.000-0.034) ng/mL NT-Pro-B Natriuret Pep pg/mL Total Protein (6.3-8.2) g/dL Albumin (3.5-5.0) g/dL Lipase (23-300) U/L // Range/Units 06:12 WBC (3.8-10.6) k/uL RBC (4.30-5.90) m/uL Hgb (13.0-17.5) gm/dL Hct (39.0-53.0) % MCV (80.0-100.0) fL MCH (25.0-35.0) pg MCHC (31.0-37.0) g/dL RDW (11.5-15.5) % Plt Count (150-450) k/uL MPV Neutrophils % % Lymphocytes % % Monocytes % % Eosinophils % % Basophils % % Neutrophils # (1.3-7.7) k/uL Lymphocytes # (1.0-4.8) k/uL Monocytes # (0-1.0) k/uL Eosinophils # (0-0.7) k/uL Basophils # (0-0.2) k/uL PT (10.0-12.5) sec INR (<1.2) APTT (22.0-30.0) sec D-Dimer (<0.60) mg/L FEU Sodium (137-145) mmol/L Potassium (3.5-5.1) mmol/L Chloride (98-107) mmol/L Carbon Dioxide (22-30) mmol/L Anion Gap mmol/L BUN (9-20) mg/dL Creatinine (0.66-1.25) mg/dL Est GFR (CKD-EPI)AfAm (>60 ml/min/1.73 sqM) Est GFR (CKD-EPI)NonAf (>60 ml/min/1.73 sqM) Glucose (74-99) mg/dL Lactic Ac Sepsis Rflx Plasma Lactic Acid Michael (0.7-2.0) mmol/L Calcium (8.4-10.2) mg/dL Phosphorus (2.5-4.5) mg/dL Magnesium (1.6-2.3) mg/dL Total Bilirubin (0.2-1.3) mg/dL AST (17-59) U/L ALT (4-49) U/L Alkaline Phosphatase (38-126) U/L Troponin I 0.493 H* (0.000-0.034) ng/mL NT-Pro-B Natriuret Pep pg/mL Total Protein (6.3-8.2) g/dL Albumin (3.5-5.0) g/dL Lipase (23-300) U/L Disposition Decision Time: 08:51 <Andres Christian - Last Filed: 01/25/24 08:50> <Elliot Wright - Last Filed: 01/26/24 22:23> Clinical Impression: Elevated troponin, Abdominal pain, Weakness, Dehydration, Hypomagnesemia, Nausea & vomiting Disposition: ADMITTED IP TO THIS HOSP Condition: Fair
[2024-01-25 04:16] LABS: Basophils % (A) 0 %; Eosinophils # (A) 0.2 k/uL (0-0.7); Eosinophils % (A) 1 %; HCT 43.3 % (39.0-53.0); HGB 14.2 gm/dL (13.0-17.5); Lymphocytes # (A) 0.7 k/uL (1.0-4.8); Lymphocytes % (A) 5 %; MCH 31.8 pg (25.0-35.0); MCHC 32.8 g/dL (31.0-37.0); MCV 96.9 fL (80.0-100.0); Monocytes # (A) 1.1 k/uL (0-1.0); Monocytes % (A) 7 %; Neutrophils # (A) 12.4 k/uL (1.3-7.7); Neutrophils % (A) 86 %; Platelet Count 220 k/uL (150-450); RBC 4.47 m/uL (4.30-5.90); RDW 12.8 % (11.5-15.5); WBC 14.5 k/uL (3.8-10.6)
[2024-01-25 04:30] LABS: ALT 14 U/L (4-49); African American GFR (CKD) >90 (>60 ml/min/1.73 sqM); Anion Gap 11 mmol/L; Blood Urea Nitrogen 7 mg/dL (9-20); Calcium 8.8 mg/dL (8.4-10.2); Carbon Dioxide 18 mmol/L (22-30); Chloride 94 mmol/L (98-107); Glucose 127 mg/dL (74-99); Lipase 20 U/L (23-300); Non-African American GFR(CKD) >90 (>60 ml/min/1.73 sqM); Sodium 123 mmol/L (137-145); Total Bilirubin 1.1 mg/dL (0.2-1.3); Total Protein 6.7 g/dL (6.3-8.2)
[2024-01-25 04:35] LABS: AST 36 U/L (17-59); Alkaline Phosphatase 71 U/L (38-126); Magnesium 1.2 mg/dL (1.6-2.3); Phosphorus 3.3 mg/dL (2.5-4.5); Potassium 4.4 mmol/L (3.5-5.1)
[2024-01-25 04:39] LABS: NT-Pro-B-Type Natriuretic Pept 9730 pg/mL
[2024-01-25] MEDS: ONDANSETRON 4 MG/2 ML VIAL IVP STA (04:50)
[2024-01-25] MEDS: SODIUM CHLORIDE 0.9% 1,000 ML IV STA ×2 (04:50→07:00)
[2024-01-25] MEDS: diphenhydrAMINE 50 MG/ML 1 ML VIAL IVP STA (04:52)
[2024-01-25 04:53] LABS: INR 1.1 (<1.2); Partial Thromboplastin Time 22.7 sec (22.0-30.0); Prothrombin Time 11.6 sec (10.0-12.5)
[2024-01-25] MEDS: MORPHINE SULFATE 4 MG/ML SYRINGE IV STA (04:54)
[2024-01-25] MEDS: HYDROmorphone 1 MG/ML 1 ML SYRINGE IVP STA (04:54)
--- NOTE | 2024-01-25 06:46 | XR ---
EXAM: XR Chest, 1 View CLINICAL HISTORY: Reason: pain TECHNIQUE: Frontal view of the chest. COMPARISON: No relevant prior studies available. FINDINGS: Lungs: Lung volumes are within normal limits. There is scarring versus developing right perihilar airspace consolidation or infiltrating mass. Prominent interstitial markings suggestive of mild pulmonary edema. Pleural space: No pneumothorax. Heart: Heart size normal. Mediastinum: No mediastinal widening or shift. Right anterior chest wall Mediport, with the catheter tip in the proximal SVC. Bones/joints: Unremarkable. No acute fracture. IMPRESSION: Parenchymal scarring versus right perihilar airspace consolidation or infiltrating mass. Mild pulmonary edema.
--- NOTE | 2024-01-25 06:48 | XR ---
EXAM: XR Abdomen, 2 Views CLINICAL HISTORY: Reason: abdominal pain TECHNIQUE: Frontal view of the abdomen/pelvis with upright view of the abdomen. COMPARISON: No relevant prior studies available. FINDINGS: Intraperitoneal space: Mild free air is seen under the diaphragm, consistent with pneumoperitoneum. Gastrointestinal tract: Bowel gas pattern is nonobstructive. Bones/joints: No evidence of acute osseous abnormality. IMPRESSION: Mild pneumoperitoneum. Please correlate if patient has had recent abdominal surgery. Absent this history, findings are concerning for bowel perforation. No evidence of bowel obstruction.
--- NOTE | 2024-01-25 07:40 | CT ---
EXAMINATION TYPE: CT angio chest DATE OF EXAM: 01/25/2024 COMPARISON: None HISTORY: post hernia repair. states n, v. CT DLP: 432.5 mGycm CONTRAST: CT chest with contrast and 3D reconstruction with MIP imaging is performed with IV Contrast, patient injected with 100 mL of Isovue 370. Contrast-enhanced CT of the chest was performed through the course of the pulmonary arteries with bandar g and mediastinal window settings submitted. 3D reconstruction with MIP imaging was also performed. PULMONARY ARTERIES: The pulmonary arteries and their major tributaries are patent. I do not see carmita dence for sizable filling defect to suggest pulmonary embolic process. LUNGS: The lungs are clear and free of infiltrate. No evidence for atelectasis. No pulmonary nodule or mass is detected. Small bilateral pleural effusions identified. MEDIASTINUM: Uncomplicated ascend ing thoracic aortic aneurysm measuring 4.4 cm AP dimension. The heart is not enlarged. No evidence f or mediastinal mass. No mediastinal lymph nodes greater than 1cm. HILAR STRUCTURES: No evidence for mass. No hilar lymph nodes greater than 1 cm. UPPER ABDOMEN: No significant abnormality is seen. IMPRESSION: 1. No evidence for Pulmonary embolism at this time.
[2024-01-25] MEDS: MAGNESIUM SULFATE-D5W PMX 1 GM in DEXTROSE/WATER 1 100ML.BAG IVPB SCH (07:41)
--- NOTE | 2024-01-25 07:43 | CT ---
EXAMINATION TYPE: CT abdomen pelvis w con DATE OF EXAM: 01/25/2024 COMPARISON: None HISTORY: post hernia repair. states n, v. CT DLP: 1294.9 mGycm CONTRAST: CT scan of the abdomen and pelvis is performed without Oral Contrast and with IV Contrast, patient in jected with 100 mL of Isovue 370. FINDINGS: LUNG BASES-: No visible nodule. No infiltrate. LIVER/GB: No calcified gallstones. No space occupying hepatic lesion. Biliary tree is of normal ca liber. PANCREAS: No inflammation. No distinct mass. SPLEEN: No splenic enlargement. No lesion seen. ADRENALS: No nodule. No thickening. KIDNEYS/BLADDER: No hydronephrosis. No nephrolithiasis. No distinct renal mass. Urinary bladder g rossly unremarkable. BOWEL: There is moderate free air seen within the abdomen. This correlate clinically with postoperati ve timeline. There is subcutaneous air noted as well as intramuscular air in a patient who is status post herniorrhaphy. 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 Small and large bowel are of normal caliber. Normal appendix. Normal bowel caliber. No inflammation. GENITAL ORGANS: No gross abnormality. LYMPH NODES: No greater than 1cm abdominal or pelvic lymph nodes are appreciated. AORTA: No significant abnormality. OSSEOUS STRUCTURES: No significant abnormality is seen. OTHER: No significant additional abnormality is seen. IMPRESSION: 1. Postoperative changes of herniorrhaphy. There is moderate free air as noted and this should be cor related with the surgical timeline. 2. Intraluminal descending duodenal lipoma. 3. Small pleural effusions.
[2024-01-25] MEDS ORDERED: NITROGLYCERIN SL TABS 0.4 MG TAB SUBLINGUAL PRN (08:48)
[2024-01-25] MEDS: ASPIRIN 81 MG PO STA (09:39)
[2024-01-25] MEDS ORDERED: polyethylene glycoL 3350 17 GM POWD.PACK PO PRN (12:18)
--- NOTE | 2024-01-25 12:33 | P.HPIM ---
History of Present Illness Patient with history of-year-old male who had recent umbilical hernia repair came with complaints of nausea vomiting abdominal pain found to be hyponatremic. Patient also has mild elevated creatinine of 0.04, 05, 06. Because of which patient is admitted for cardiology evaluation. Patient had a CT of the abdomen which showed postsurgical changes CT angio of the chest which showed mild pleural effusions, abdominal x-ray and a chest x-ray. Patient has elevated BNP of 9500 but patient clinically he is not volume overloaded patient may be slightly volume depleted because of nausea vomiting. Patient is still bit nauseous. Patient was also having watery diarrhea. There is no evidence of pneumonia on the CT scan although chest x-ray was read as possibility of pneumonia. Patient's creatinine is within normal limits. Magnesium is low at 1.2 which will be replaced. REVIEW OF SYSTEMS: All other systems are negative except those mentioned in the HPI PHYSICAL EXAMINATION: GENERAL: The patient is alert and oriented x3, not in any acute distress. Well developed, well nourished. HEENT: Pupils are round and equally reacting to light. EOMI. No scleral icterus. No conjunctival pallor. Normocephalic, atraumatic. No pharyngeal erythema. No thyromegaly. CARDIOVASCULAR: S1 and S2 present. No murmurs, rubs, or gallops. PULMONARY: Chest is clear to auscultation, no wheezing or crackles. ABDOMEN: Soft, nontender, nondistended, normoactive bowel sounds. No palpable organomegaly. MUSCULOSKELETAL: No joint swelling or deformity. EXTREMITIES: No cyanosis, clubbing, or pedal edema. NEUROLOGICAL: Gross neurological examination did not reveal any focal deficits. SKIN: No rashes. Assessment and plan -Abdominal pain nausea vomiting postsurgery may be because of oxycodone pain improved at this time nausea improved at this time continue Zofran, Protonix will use Bronson for pain avoid NSAIDs because of possibility of gastritis or peptic ulcer disease postsurgery. -Elevated troponins secondary to dehydration from nausea vomiting. -Lactic acidosis again secondary to volume depletion. -Hyponatremia mostly volume depletion will order IV fluids and will check his serum sodium tomorrow, clinically patient is not volume overloaded clinically patient is not in CHF despite of troponin elevation and mild pleural effusions echocardiogram will be ordered -Leukocytosis reactive secondary to surgery and nausea vomiting -Hypomagnesemia secondary to nausea vomiting will be replaced -Occasional marijuana use -History of cancer in remission DVT prophylaxis: Lovenox 40 mg subcutaneous Past Medical History Past Medical History: Cancer, GERD/Reflux, Hearing Disorder / Deafness Additional Past Medical History / Comment(s): Stomach pain and nausea daily around 2-3 am. Hx Lymphoma 2021. Nausea, vomiting symptoms since 03/26. Hard of hearing. History of Any Multi-Drug Resistant Organisms: None Reported Past Surgical History: Hernia Repair Additional Past Surgical History / Comment(s): EGD/colonoscopy, hemorrhoidectomy, mediport to right side, hiatal hernia repair. Imbilical hernia 01/24/24 Past Anesthesia/Blood Transfusion Reactions: No Reported Reaction Past Psychological History: No Psychological Hx Reported Smoking Status: Former smoker Past Alcohol Use History: Occasional Additional Past Alcohol Use History / Comment(s): Quit smoking in 2018, smoked 10-15 cigarettes/day for 10 yrs. Past Drug Use History: Marijuana Additional Drug Use History / Comment(s): Smokes marijuana daily. Aware no use 24 hrs prior to procedure. - Past Family History Sister(s) Family Medical History: Cancer Additional Family Medical History / Comment(s): Unsure of type of cancer but thinks lymphoma. Medications and Allergies Home Medications Medication Instructions Recorded Confirmed Type Prochlorperazine [Compazine] 10 mg PO Q6H PRN 10/27/23 01/25/24 History oxyCODONE HCL [OxyIR] 5 mg PO Q6H PRN 3 Days #15 tab 01/24/24 01/25/24 Rx Simethicone [Gas-X] 125 mg PO QID PRN 01/25/24 01/25/24 History Allergies Allergy/AdvReac Type Severity Reaction Status Date / Time No Known Allergies Allergy Verified 01/25/24 10:07 Physical Exam Vitals: Vital Signs Temp Pulse Pulse Resp BP BP Pulse Ox 01/25/24 11:49 98.2 F 84 18 108/74 98 01/25/24 10:00 81 18 110/74 99 01/25/24 09:00 89 16 108/72 99 01/25/24 06:58 71 18 115/72 99 01/25/24 04:45 98 18 124/80 98 01/25/24 03:30 80 20 129/72 96 01/25/24 02:56 97.9 F 105 H 18 151/104 100 Intake and Output 01/24/24 01/25/24 01/25/24 22:59 06:59 14:59 Other: Voiding Method Toilet Weight 79.379 kg 79.379 kg Results CBC & Chem 7: 01/25/24 04:02 01/25/24 04:02 Labs: Abnormal Lab Results - Last 24 Hours (Table) 01/25/24 01/25/24 01/25/24 Range/Units 04:02 04:02 04:02 WBC 14.5 H (3.8-10.6) k/uL Neutrophils # 12.4 H (1.3-7.7) k/uL Lymphocytes # 0.7 L (1.0-4.8) k/uL Monocytes # 1.1 H (0-1.0) k/uL Sodium 123 L (137-145) mmol/L Chloride 94 L (98-107) mmol/L Carbon Dioxide 18 L (22-30) mmol/L BUN 7 L (9-20) mg/dL Creatinine 0.41 L (0.66-1.25) mg/dL Glucose 127 H (74-99) mg/dL Plasma Lactic Acid Michael (0.7-2.0) mmol/L Magnesium 1.2 L (1.6-2.3) mg/dL Troponin I 0.529 H* (0.000-0.034) ng/mL Lipase 20 L (23-300) U/L 01/25/24 01/25/24 01/25/24 Range/Units 05:23 06:12 09:47 WBC (3.8-10.6) k/uL Neutrophils # (1.3-7.7) k/uL Lymphocytes # (1.0-4.8) k/uL Monocytes # (0-1.0) k/uL Sodium (137-145) mmol/L Chloride (98-107) mmol/L Carbon Dioxide (22-30) mmol/L BUN (9-20) mg/dL Creatinine (0.66-1.25) mg/dL Glucose (74-99) mg/dL Plasma Lactic Acid Michael 3.2 H* 2.1 H* (0.7-2.0) mmol/L Magnesium (1.6-2.3) mg/dL Troponin I 0.493 H* (0.000-0.034) ng/mL Lipase (23-300) U/L 01/25/24 Range/Units 09:47 WBC (3.8-10.6) k/uL Neutrophils # (1.3-7.7) k/uL Lymphocytes # (1.0-4.8) k/uL Monocytes # (0-1.0) k/uL Sodium (137-145) mmol/L Chloride (98-107) mmol/L Carbon Dioxide (22-30) mmol/L BUN (9-20) mg/dL Creatinine (0.66-1.25) mg/dL Glucose (74-99) mg/dL Plasma Lactic Acid Michael (0.7-2.0) mmol/L Magnesium (1.6-2.3) mg/dL Troponin I 0.619 H* (0.000-0.034) ng/mL Lipase (23-300) U/L Thrombosis Risk Factor Assmnt - Choose All That Apply Each Factor Represents 1 point: Minor surgery planned Each Risk Factor Represents 2 Points: Age 61-74 years Thrombosis Risk Factor Assessment Total Risk Factor Score: 3 Thrombosis Risk Factor Assessment Level: Moderate Risk
[2024-01-25] MEDS: SODIUM CHLORIDE 0.9% 1,000 ML IV SCH (12:52)
[2024-01-25] MEDS: ACETAMINOPHEN TAB 325 MG TAB PO PRN (12:57)
[2024-01-25] MEDS: PANTOPRAZOLE 40 MG/10 ML VIAL IVP SCH (12:57)
[2024-01-25] MEDS: MAGNESIUM SULFATE-D5W PMX 1 GM in DEXTROSE/WATER 1 100ML.BAG IVPB ONE (12:58)
[2024-01-25] MEDS: ENOXAPARIN 40 MG/0.4 ML SYRINGE SQ SCH (12:58)
[2024-01-25 16:12] LABS: Appearance,Urine Clear (Clear); Bilirubin,Urine Negative (Negative); Blood,Urine Trace (Negative); Color,Urine Colorless; Glucose,Urine (UA) Negative (Negative); Ketones,Urine Negative (Negative); Leukocyte Esterase,Urine Negative (Negative); Nitrite,Urine Negative (Negative); PH, Urine 6.5 (5.0-8.0); Protein,Urine Negative (Negative); RBC,Urine 1 /hpf (0-5); Specific Gravity,Urine 1.013 (1.001-1.035); Urobilinogen,Urine <2.0 mg/dL (<2.0); WBC,Urine <1 /hpf (0-5)
[2024-01-25] MEDS: HYDROcodone/APAP 7.5-325MG 1 EACH TAB PO PRN (20:34)
[2024-01-26 07:32] LABS: HCT 38.6 % (39.0-53.0); HGB 12.9 gm/dL (13.0-17.5); MCH 32.9 pg (25.0-35.0); MCHC 33.4 g/dL (31.0-37.0); MCV 98.4 fL (80.0-100.0); Mean Platelet Volume 8.6; Platelet Count 200 k/uL (150-450); RBC 3.93 m/uL (4.30-5.90); WBC 7.9 k/uL (3.8-10.6)
[2024-01-26 08:01] LABS: African American GFR (CKD) >90 (>60 ml/min/1.73 sqM); Anion Gap 1 mmol/L; Blood Urea Nitrogen 7 mg/dL (9-20); Calcium 8.6 mg/dL (8.4-10.2); Carbon Dioxide 24 mmol/L (22-30); Chloride 105 mmol/L (98-107); Glucose 98 mg/dL (74-99); Magnesium 1.7 mg/dL (1.6-2.3); Non-African American GFR(CKD) >90 (>60 ml/min/1.73 sqM); Potassium 3.9 mmol/L (3.5-5.1); Sodium 130 mmol/L (137-145)
[2024-01-26] MEDS ORDERED: NITROGLYCERIN SL TABS 0.4 MG TAB SUBLINGUAL PRN (09:16)
[2024-01-26] MEDS ORDERED: ALPRAZolam 0.25 MG TAB PO PRN (09:16)
[2024-01-26] MEDS: ASPIRIN 81 MG PO SCH (09:32)
[2024-01-26] MEDS: ATORVASTATIN 80 MG TAB PO STA (09:37)
[2024-01-26] MEDS: ASPIRIN 325 MG TAB PO STA (09:37)
[2024-01-26] MEDS: SODIUM CHLORIDE 0.9% 1,000 ML in EMPTY BAG 1 BAG IV SCH (09:37)
[2024-01-26] MEDS: SIMETHICONE 80 MG CHEWABLE PO PRN (09:37)
[2024-01-26] MEDS: ALPRAZolam 0.5 MG TAB PO PRN (10:08)
--- NOTE | 2024-01-26 11:36 | P.CRDCN ---
History of Present Illness History of present illness: HISTORY OF PRESENT ILLNESS: This is a 68-year-old male with a past medical history significant for GERD, congestive heart failure, lymphoma, and former nicotine dependence. Patient follows with a director of pulmonary unit out of town, Dr. Molina. We have been asked to see the patient in consultation for elevated troponin. Patient examined at the bedside. Patient underwent laparoscopic robotic assisted repair of ventral hernia with Dr. Ortega 01/24/24. He was discharged home in apparent stable condition. He presented back to the hospital that she complained of abdominal pain, nausea, vomiting, diarrhea. He denies any chest pain or pressure. He denies any shortness of breath. He does report having some mild abdominal pain. He does report having some dizziness yesterday. He denies a history of CAD. He reports he was diagnosed with congestive heart failure about 2 years ago when he was undergoing treatment for lymphoma. He denies a history of hypertension, hyperlipidemia, or diabetes. He states he is a former cigarette smoker and quit smoking a few years ago. DIAGNOSTICS: - EKG reveals sinus mechanism with T wave inversions in precordial leads - Chest xray parenchymal scarring versus right perihilar airspace consolidation or infiltrating mass. Mild pulmonary edema - Laboratory data: WBC 14.5. Hemoglobin 14.2. Platelet count 220. D-dimer 0.55. Sodium 123. Potassium 4.4. BUN 7. Creatinine 0.41. proBNP 9730. Troponin 0.529. 0.493. 0.619. - Current home cardiac medications include none. - No previous echocardiogram or cardiac catheterization available in EMR for review REVIEW OF SYSTEMS: At the time of my exam: CONSTITUTIONAL: Denies fever or chills. HEENT: Denies blurred vision, vision changes, or eye pain. Denies hemoptysis CARDIOVASCULAR: Denies chest pain. Denies orthopnea. Denies PND. Denies palpitations RESPIRATORY: Denies shortness of breath. GASTROINTESTINAL: Denies abdominal pain. Denies nausea or vomiting. HEMATOLOGIC: Denies bleeding disorders. GENITOURINARY: Denies any blood in urine. SKIN: Denies pruitis. Denies rash. PHYSICAL EXAM: VITAL SIGNS: Reviewed. GENERAL: Well-developed in no acute distress. HEENT: Head is normocephalic. Pupils are equal, round. Sclerae anicteric. Mucous membranes of the mouth are moist. Neck supple. No JVD or thyromegaly LUNGS: Respirations even and unlabored. Lungs essentially clear to auscultation bilaterally. HEART: Regular rate and rhythm. S1 and S2 heard. ABDOMEN: Soft. Nondistended. Nontender. EXTREMITIES: Normal range of motion. No clubbing or cyanosis. Peripheral pulses intact. No lower extremity edema NEUROLOGIC: Awake and alert. Oriented x 3. ASSESSMENT: Nausea, vomiting, diarrhea Status post laparoscopic robotic assisted repair of ventral hernia, 01/24/2024 Hyponatremia Elevated troponins with abnormal EKG, likely NSTEMI Chronic heart failure, type unknown, currently euvolemic History of lymphoma History of GERD Former nicotine dependence PLAN: Obtain 2D echo to assess cardiac structure and function Begin aspirin 81 mg daily and atorvastatin 40 mg at night Recommend cardiac catheterization today with Dr. Banks due to abdominal troponins and abnormal EKG with TWI in precordial leads. Patient is agreeable. Further recommendations pending patient course Nurse practitioner note has been reviewed by physician. Signing provider agrees with the documented findings, assessment, and plan of care documented by FARM EQUIPMENT OPERATOR as a scribe. Past Medical History Past Medical History: Cancer, GERD/Reflux, Hearing Disorder / Deafness Additional Past Medical History / Comment(s): Stomach pain and nausea daily around 2-3 am. Hx Lymphoma 2021. Nausea, vomiting symptoms since 03/26. Hard of hearing. History of Any Multi-Drug Resistant Organisms: None Reported Past Surgical History: Hernia Repair Additional Past Surgical History / Comment(s): EGD/colonoscopy, hemorrhoidectomy, mediport to right side, hiatal hernia repair. Imbilical hernia 01/24/24 Past Anesthesia/Blood Transfusion Reactions: No Reported Reaction Past Psychological History: No Psychological Hx Reported Smoking Status: Former smoker Past Alcohol Use History: Occasional Additional Past Alcohol Use History / Comment(s): Quit smoking in 2019, smoked 10-15 cigarettes/day for 10 yrs. Past Drug Use History: Marijuana Additional Drug Use History / Comment(s): Smokes marijuana daily. Aware no use 24 hrs prior to procedure. - Past Family History Sister(s) Family Medical History: Cancer Additional Family Medical History / Comment(s): Unsure of type of cancer but thinks lymphoma. Medications and Allergies Home Medications Medication Instructions Recorded Confirmed Type Prochlorperazine [Compazine] 10 mg PO Q6H PRN 10/27/23 01/25/24 History oxyCODONE HCL [OxyIR] 5 mg PO Q6H PRN 3 Days #15 tab 01/24/24 01/25/24 Rx Simethicone [Gas-X] 125 mg PO QID PRN 01/25/24 01/25/24 History Allergies Allergy/AdvReac Type Severity Reaction Status Date / Time No Known Allergies Allergy Verified 01/25/24 10:07 Physical Exam Vitals: Vital Signs Temp Pulse Pulse Resp BP BP Pulse Ox 01/26/24 04:00 84 18 136/82 97 01/26/24 02:00 79 18 01/26/24 00:00 79 18 116/70 98 01/25/24 20:00 87 18 108/68 97 01/25/24 15:38 97.8 F 95 16 105/70 99 01/25/24 11:49 98.2 F 84 18 108/74 98 01/25/24 10:00 81 18 110/74 99 01/25/24 09:00 89 16 108/72 99 Intake and Output 01/25/24 01/26/24 01/26/24 22:59 06:59 14:59 Intake Total 1080 1198 Balance 1080 1198 Intake: Oral 1080 1198 Other: Voiding Method Toilet Toilet # Voids 2 1 Results 01/26/24 07:15 01/26/24 07:15 Cardiac Enzymes 01/25/24 Range/Units 09:47 Troponin I 0.619 H* (0.000-0.034) ng/mL CBC 01/26/24 Range/Units 07:15 WBC 7.9 (3.8-10.6) k/uL RBC 3.93 L (4.30-5.90) m/uL Hgb 12.9 L (13.0-17.5) gm/dL Hct 38.6 L (39.0-53.0) % Plt Count 200 (150-450) k/uL Comprehensive Metabolic Panel 01/26/24 Range/Units 07:15 Sodium 130 L (137-145) mmol/L Potassium 3.9 (3.5-5.1) mmol/L Chloride 105 (98-107) mmol/L Carbon Dioxide 24 (22-30) mmol/L BUN 7 L (9-20) mg/dL Creatinine 0.55 L (0.66-1.25) mg/dL Glucose 98 (74-99) mg/dL Calcium 8.6 (8.4-10.2) mg/dL Current Medications Generic Name Dose Route Start Last Admin Trade Name Freq PRN Reason Stop Dose Admin Acetaminophen 650 mg 01/25/24 12:21 01/25/24 12:57 Acetaminophen Tab 325 Mg Tab PO 650 mg Q4HR PRN Administration Fever and/ or Mild Pain Hydrocodone Bitart/Acetaminophen 1 each 01/25/24 12:18 01/26/24 04:14 Hydrocodone/Apap 7.5-325mg 1 Each Tab PO 1 each Q8HR PRN Administration Pain Enoxaparin Sodium 40 mg 01/25/24 12:45 01/25/24 12:58 Enoxaparin 40 Mg/0.4 Ml Syringe SQ 40 mg DAILY BAN Administration Sodium Chloride 1,000 mls @ 75 mls/hr 01/25/24 12:30 01/26/24 07:08 Saline 0.9% IV Not Given .[id number] BAN Nitroglycerin 0.4 mg 01/25/24 08:48 Nitroglycerin Sl Tabs 0.4 Mg Tab SUBLINGUAL Q5M PRN Chest Pain Ondansetron HCl 4 mg 01/25/24 12:20 Ondansetron 4 Mg/2 Ml Vial IVP Q6HR PRN Nausea And Vomiting Pantoprazole Sodium 40 mg 01/25/24 12:30 01/25/24 20:34 Pantoprazole 40 Mg/10 Ml Vial IVP 40 mg BID BAN Administration Polyethylene Glycol 17 gm 01/25/24 12:18 Polyethylene Glycol 3350 17 Gm Powd.Pack PO DAILY PRN Constipation Simethicone 120 mg 01/25/24 12:21 Simethicone 80 Mg Chewable PO QID PRN GI Upset Intake and Output 01/25/24 01/26/24 01/26/24 22:59 06:59 14:59 Intake Total 1080 1198 Balance 1080 1198 Intake: Oral 1080 1198 Other: Voiding Method Toilet Toilet # Voids 2 1 01/26/24 07:15 01/26/24 07:15
[2024-01-26] MEDS: ONDANSETRON 4 MG/2 ML VIAL IVP PRN (11:44)
[2024-01-26] MEDS ORDERED: fentaNYL (PF) 50 MCG/ML 2 ML AMP ONE (12:06)
[2024-01-26] MEDS ORDERED: HEPARIN SODIUM 1,000 UN/ML (10ML VL) ONE (12:06)
[2024-01-26] MEDS ORDERED: LIDOCAINE 1% INJ 10MG/ML (20 ML MDV) ONE (12:07)
--- NOTE | 2024-01-26 12:14 | CA ---
Transthoracic Echo Report Name: Pako Hicks Age: 68 Gender: M : 1955 Exam Date: 01/26/2024 09:23 Exam Location: [facility] Ht (in): 67 Wt (lb): 175 Ordering Physician: Kelli Spicer MD Attending/Referring Phys: Ground Defence Officer Elisabet Hummel RDCS Procedure CPT: Indications: troponin elevation Cardiac Hx: Technical Quality: Good Contrast 1: Total Dose (mL): Contrast 2: Total Dose (mL): MEASUREMENTS (Male / Female) Normal Values 2D ECHO LV Diastolic Diameter PLAX 5.2 cm 4.2 - 5.9 / 3.9 - 5.3 cm LV Systolic Diameter PLAX 3.8 cm IVS Diastolic Thickness 1.2 cm 0.6 - 1.0 / 0.6 - 0.9 cm LVPW Diastolic Thickness 1.0 cm 0.6 - 1.0 / 0.6 - 0.9 cm LV Relative Wall Thickness 0.4 LVOT Diameter 2.3 cm LV Diastolic Volume MOD BP 187.2 cm??? 67 - 155 / 56 - 104 cm??? LV Systolic Volume MOD BP 116.8 cm??? 22 - 58 / 19 - 49 cm??? LV Ejection Fraction MOD BP 37.6 % >= 55 % LV Cardiac Index MOD BP 3348.6 cm???/min???m??? LV Diastolic Volume MOD 4C 189.9 cm??? LV Systolic Volume MOD 4C 110.7 cm??? LV Ejection Fraction MOD 4C 41.7 % LV Cardiac Index MOD 4C 3767.6 cm???/min???m??? LV Diastolic Length 4C 9.8 cm LV Systolic Length 4C 9.1 cm LV Diastolic Volume MOD 2C 183.0 cm??? LV Systolic Volume MOD 2C 122.8 cm??? LV Ejection Fraction MOD 2C 32.9 % LV Cardiac Index MOD 2C 2863.9 cm???/min???m??? LV Diastolic Length 2C 9.7 cm LV Systolic Length 2C 9.3 cm LA Volume 111.5 cm??? 18 - 58 / 22 - 52 cm??? LA Volume Index 57.0 cm???/m??? 16 - 28 cm???/m??? Ascending Aorta Diameter 4.1 cm DOPPLER AV Peak Velocity 149.4 cm/s AV Peak Gradient 8.9 mmHg AV Mean Velocity 99.7 cm/s AV Mean Gradient 4.7 mmHg AV Velocity Time Integral 24.2 cm LVOT Peak Velocity 86.6 cm/s LVOT Peak Gradient 3.0 mmHg LVOT Velocity Time Integral 15.3 cm LVOT Stroke Volume 62.6 cm??? LVOT Stroke Volume Index 32.8 ml/m??? LVOT Cardiac Index 2981.2 cm???/min???m??? AV Area Cont Eq vti 2.6 cm??? AV Area Cont Eq pk 2.4 cm??? MV Peak Velocity 119.2 cm/s MV Peak Gradient 5.7 mmHg MV Mean Velocity 92.9 cm/s MV Mean Gradient 3.6 mmHg MV Velocity Time Integral 27.9 cm MV Area PHT 4.9 cm??? Mitral E Point Velocity 88.4 cm/s Mitral A Point Velocity 79.3 cm/s Mitral E to A Ratio 1.1 MV Deceleration Time 155.7 ms TR Peak Velocity 234.0 cm/s TR Peak Gradient 21.9 mmHg PV Peak Velocity 63.7 cm/s PV Peak Gradient 1.6 mmHg FINDINGS Left Ventricle Left ventricular ejection fraction is estimated at 35-40 %. Mildly increased septal wall thickness. Moderately increased left ventricular diastolic volume. Severely increased left ventricular systolic volume. Moderately decreased left ventricular ejection fraction with regional variability. apical wall hypokinesis. Right Ventricle Moderate right ventricular dilatation with normal function. Right Atrium Severe right atrial dilatation. Left Atrium Severely increased left atrial volume. Mildly increased left atrial area. Mitral Valve Mitral valve thickened. No evidence for mitral valve prolapse. Mild mitral stenosis. Mild mitral regurgitation. Aortic Valve Trileaflet aortic valve. No aortic stenosis. Trace aortic regurgitation. Tricuspid Valve Structurally normal tricuspid valve. No tricuspid stenosis. Mild tricuspid regurgitation. Pulmonic Valve Structurally normal pulmonic valve. No pulmonic stenosis. No pulmonic regurgitation. Pericardium No pericardial effusion. Aorta Aortic annulus normal. Ascending aorta mildly enlarged. CONCLUSIONS Moderate to severe LV systolic dysfunction with an ejection fraction of 35-40% Enlarged left atrium Mild mitral regurgitation Trace aortic regurgitation Apical hypokinesis Previewed by: Dr. Camacho Brian MD (Electronically Signed) Final Date: 26 January 2024 12:13
[2024-01-26] MEDS: LIDOCAINE 1% INJ 10MG/ML (20 ML MDV) SQ ONE (12:48)
[2024-01-26] MEDS: fentaNYL (PF) 50 MCG/1 ML VIAL IVP ONE (12:48)
[2024-01-26] MEDS: MIDAZOLAM 2 MG/2 ML VIAL IVP ONE ×2 (12:48→12:52)
[2024-01-26] MEDS: VERAPAMIL 2.5 MG/ML 4 ML VIAL INTRAARTER ONE (12:49)
[2024-01-26] MEDS: HEPARIN SODIUM 1,000 UN/ML (10ML VL) IVP ONE (12:51)
[2024-01-26] MEDS ORDERED: RX INFO: IV CONTRAST WAS GIVEN 1 EACH MISC MISCELLANE PRN (13:05)
--- NOTE | 2024-01-26 13:07 | P.PCN ---
Date of Procedure: 01/26/24 Operative Findings: CARDIAC CATHETERIZATION PERFORMING PHYSICIAN: Marcelo Banks MD, RPVI PROCEDURE PERFORMED: 1. Selective right and left coronary angiogram 2. Left heart catheterization 3. Ultrasound-guided access of the right radial artery INDICATION: Acute non-ST elevation myocardial infarction COMPLICATION: None APPROACH: Right radial artery LEVEL OF SEDATION: Moderate with a sedation length of 23 minutes PROCEDURE DESCRIPTION: After obtaining an informed consent, the patient was brought to cardiac labor trainer. Local anesthesia was performed using lidocaine subcutaneously. The right radial artery was cannulated using Seldinger technique, the guidewire passed easily, following that we advanced a 5-Bangladeshi sheath dilator assembly, the wire and dilator were removed and sheath was flushed. Following that, 2 mg of verapamil along with 5000 unit heparin were given. Selective right and left coronary angiogram using a 6-Bangladeshi JR4 and JL 3.5 catheters. Following that we did left heart catheterization using 6-Bangladeshi pigtail catheter. The procedure was completed there was no complication. SELECTIVE CORONARY ANGIOGRAM: The right coronary artery: Large caliber vessel nondominant vessel with intermediate disease involving the midportion documented to be nonflow limiting by Doppler wire Left main: Is angiographically normal The left circumflex: Large-caliber vessel codominant vessel and is angiographically normal gives rise into the first obtuse marginal branch which appears to have mild disease only and distally bifurcates into PDA and PLV branches The left anterior descending artery: Large-caliber vessel it is angiographically normal. Gives rise into the first and second diagonal branches both appear to be normal HEMODYNAMICS: LVEDP was 12 mmHg with no gradient was identified across aortic valve CONCLUSION: 1. Intermediate disease involving the mid RCA documented to be nonflow limiting by Doppler wire 2. Normal left-sided filling pressure POSTPROCEDURE MANAGEMENT: Medical treatment
[2024-01-26] MEDS: IOPAMIDOL-370 100ML BTL INTRATHECA ONE (13:08)
[2024-01-26] MEDS: HEPARIN SODIUM,PORCINE (1 ML) 2,500 UNIT in SODIUM CHLORIDE 0.9% 250 ML IRRIGATION ONE (13:09)
[2024-01-26] MEDS: HEPARIN SODIUM,PORCINE 10,000 UNIT in SODIUM CHLORIDE 0.9% 1,000 ML IRRIGATION ONE (13:09)
[2024-01-26] MEDS: SODIUM CHLORIDE 0.9% 1,000 ML IV ONE (13:09)
[2024-01-26] MEDS: SODIUM CHLORIDE 0.9% 1,000 ML IV SCH (13:15)
--- NOTE | 2024-01-26 13:50 | P.GSCN ---
History of Present Illness Consult date: 01/26/24 History of present illness: CHIEF COMPLAINT: Abdominal pain HISTORY OF PRESENT ILLNESS: This is a 68-year-old male who presented to the hospital with complaints of abdominal pain with nausea and vomiting. He had recent ventral hernia repair on January 24, [address] Ortega. Patient was found to have elevated troponin and concerns for an acute MT. Cardiology was consulted and they have him scheduled for heart catheterization today. Patient reports that he is feeling better since being admitted to the hospital. Patient seen and examined with Dr. Ortega PAST MEDICAL HISTORY: Cancer, GERD/Reflux, Hearing Disorder / Deafness, Lymphoma PAST SURGICAL HISTORY: hemorrhoidectomy, mediport to right side, hiatal hernia repair. MEDICATIONS: See below ALLERGIES: See below SOCIAL HISTORY: No illicit drug use. REVIEW OF SYSTEMS: CONSTITUTIONAL: Denies fever or chills. HEENT: Denies blurred vision, vision changes, or eye pain. Denies hemoptysis CARDIOVASCULAR: Denies chest pain or pressure. RESPIRATORY: No shortness of breath. GASTROINTESTINAL: See HPI for pertinent findings HEMATOLOGIC: Denies bleeding disorders. GENITOURINARY: Denies any blood in urine or increased urinary frequency. SKIN: Denies pruitis. Denies rash. PHYSICAL EXAM: VITAL SIGNS: Reviewed GENERAL: Well-developed in no acute distress. HEENT: No sclera icterus. Extraocular movements grossly intact. Moist buccal mucosa. Head is atraumatic, normocephalic. No nasal drainage. ABDOMEN: Soft. Nondistended. Mild tenderness at incision sites. Incision sites clean dry and intact NEUROLOGIC: Alert and oriented. Cranial nerves II through XII grossly intact. LABORATORY DATA: WBC 14.5 down to 7.9 Hgb 12.9 platelets 200 Sodium 130 potassium 3.9 creatinine 0.55 Lactic acid 1.8 Troponin elevated 0.619 IMAGING: CT scan abdomen pelvis reports postoperative changes of herniorrhaphy. There is moderate free air is noted and this should be correlated with surgical timeline. Intraluminal descending duodenal lipoma. Small pleural effusions. CTA chest negative for PE Echo shows an EF of 35 to 40% apical hypokinesis ASSESSMENT: 1. Abdominal pain with ventral hernia status post laparoscopic robotic assisted repair of ventral hernia on 01/24/2024. Patient's nausea and vomiting improved. Could have also been related to patient's MT. Moderate free air noted on CT scan secondary to surgery 2. Acute non-ST elevated MT followed by cardiology and scheduled for heart cath today PLAN: -Continue cardiac workup -Resume regular diet when cleared by cardiology service to start diet -No further surgical intervention planned Physician Academic Support Assistant note has been reviewed by physician. Signing provider agrees with the documented findings, assessment, and plan of care. Past Medical History Past Medical History: Cancer, GERD/Reflux, Hearing Disorder / Deafness Additional Past Medical History / Comment(s): Stomach pain and nausea daily around 2-3 am. Hx Lymphoma 2021. Nausea, vomiting symptoms since 03/26. Hard of hearing. History of Any Multi-Drug Resistant Organisms: None Reported Past Surgical History: Hernia Repair Additional Past Surgical History / Comment(s): EGD/colonoscopy, hemorrhoid ectomy, mediport to right side, hiatal hernia repair. Imbilical hernia 01/24/24 Past Anesthesia/Blood Transfusion Reactions: No Reported Reaction Past Psychological History: No Psychological Hx Reported Smoking Status: Former smoker Past Alcohol Use History: Occasional Additional Past Alcohol Use History / Comment(s): Quit smoking in 2018, smoked 10-15 cigarettes/day for 10 yrs. Past Drug Use History: Marijuana Additional Drug Use History / Comment(s): Smokes marijuana daily. Aware no use 24 hrs prior to procedure. - Past Family History Sister(s) Family Medical History: Cancer Additional Family Medical History / Comment(s): Unsure of type of cancer but thinks lymphoma. Medications and Allergies Home Medications Medication Instructions Recorded Confirmed Type Prochlorperazine [Compazine] 10 mg PO Q6H PRN 10/27/23 01/25/24 History oxyCODONE HCL [OxyIR] 5 mg PO Q6H PRN 3 Days #15 tab 01/24/24 01/25/24 Rx Simethicone [Gas-X] 125 mg PO QID PRN 01/25/24 01/25/24 History Allergies Allergy/AdvReac Type Severity Reaction Status Date / Time No Known Allergies Allergy Verified 01/25/24 10:07 Surgical - Exam Vital Signs Temp Pulse Resp BP Pulse Ox 97.9 F 105 H 18 151/104 100 01/25/24 02:56 01/25/24 02:56 01/25/24 02:56 01/25/24 02:56 01/25/24 02:56 Results - Labs 01/26/24 07:15 01/26/24 07:15 Abnormal Lab Results - Last 24 Hours (Table) 01/25/24 01/25/24 01/25/24 Range/Units 12:40 12:40 15:46 RBC (4.30-5.90) m/uL Hgb (13.0-17.5) gm/dL Hct (39.0-53.0) % Sodium (137-145) mmol/L BUN (9-20) mg/dL Creatinine (0.66-1.25) mg/dL Plasma Lactic Acid Michael 3.8 H* (0.7-2.0) mmol/L Procalcitonin 0.14 H (0.02-0.09) ng/mL Urine Blood Trace H (Negative) Urine Osmolality (400-1100) mOsm/kg Ur Random Sodium (40-220) mmol/L 01/25/24 01/25/24 01/25/24 Range/Units 15:46 15:46 15:48 RBC (4.30-5.90) m/uL Hgb (13.0-17.5) gm/dL Hct (39.0-53.0) % Sodium (137-145) mmol/L BUN (9-20) mg/dL Creatinine (0.66-1.25) mg/dL Plasma Lactic Acid Michael 2.3 H* (0.7-2.0) mmol/L Procalcitonin (0.02-0.09) ng/mL Urine Blood (Negative) Urine Osmolality 221 L (400-1100) mOsm/kg Ur Random Sodium 34 L (40-220) mmol/L 01/26/24 01/26/24 Range/Units 07:15 07:15 RBC 3.93 L (4.30-5.90) m/uL Hgb 12.9 L (13.0-17.5) gm/dL Hct 38.6 L (39.0-53.0) % Sodium 130 L (137-145) mmol/L BUN 7 L (9-20) mg/dL Creatinine 0.55 L (0.66-1.25) mg/dL Plasma Lactic Acid Michael (0.7-2.0) mmol/L Procalcitonin (0.02-0.09) ng/mL Urine Blood (Negative) Urine Osmolality (400-1100) mOsm/kg Ur Random Sodium (40-220) mmol/L Diabetes panel 01/26/24 Range/Units 07:15 Sodium 130 L (137-145) mmol/L Potassium 3.9 (3.5-5.1) mmol/L Chloride 105 (98-107) mmol/L Carbon Dioxide 24 (22-30) mmol/L BUN 7 L (9-20) mg/dL Creatinine 0.55 L (0.66-1.25) mg/dL Glucose 98 (74-99) mg/dL Calcium 8.6 (8.4-10.2) mg/dL Thyroid panel 01/26/24 Range/Units 07:15 TSH 2.670 (0.465-4.680) mIU/L Calcium panel 01/26/24 Range/Units 07:15 Calcium 8.6 (8.4-10.2) mg/dL Pituitary panel 01/26/24 Range/Units 07:15 Sodium 130 L (137-145) mmol/L Potassium 3.9 (3.5-5.1) mmol/L Chloride 105 (98-107) mmol/L Carbon Dioxide 24 (22-30) mmol/L BUN 7 L (9-20) mg/dL Creatinine 0.55 L (0.66-1.25) mg/dL Glucose 98 (74-99) mg/dL Calcium 8.6 (8.4-10.2) mg/dL TSH 2.670 (0.465-4.680) mIU/L Adrenal panel 01/26/24 Range/Units 07:15 Sodium 130 L (137-145) mmol/L Potassium 3.9 (3.5-5.1) mmol/L Chloride 105 (98-107) mmol/L Carbon Dioxide 24 (22-30) mmol/L BUN 7 L (9-20) mg/dL Creatinine 0.55 L (0.66-1.25) mg/dL Glucose 98 (74-99) mg/dL Calcium 8.6 (8.4-10.2) mg/dL
[2024-01-26 15:12] LABS: Chol/HDL Ratio 2.18 Ratio; VLDL Calculation 16.96 mg/dL (5.00-40.00)
--- NOTE | 2024-01-26 17:04 | P.PN ---
Progress Note - Text Progress Note Date: 01/26/24 Patient with history of-year-old male who had recent umbilical hernia repair came with complaints of nausea vomiting abdominal pain found to be hyponatremic. Patient also has mild elevated creatinine of 0.04, 05, 06. Because of which patient is admitted for cardiology evaluation. Patient had a CT of the abdomen which showed postsurgical changes CT angio of the chest which showed mild pleural effusions, abdominal x-ray and a chest x-ray. Patient has elevated BNP of 9500 but patient clinically he is not volume overloaded patient may be slightly volume depleted because of nausea vomiting. Patient is still bit nauseous. Patient was also having watery diarrhea. There is no evidence of pneumonia on the CT scan although chest x-ray was read as possibility of pneumonia. Patient's creatinine is within normal limits. Magnesium is low at 1.2 which will be replaced. January 25: at the bedside. Patient went discharged and had some nausea. Did have severe vomiting. Multiple times. Has had presented here. Today having nausea but no vomiting. In the past patient's had congestive heart failure from chemotherapy for lymphoma treatment. Later this afternoon patient underwent cardiac catheterization with Dr. Banks. Found to have intermediate disease in the mid RCA. For medical management. Patient had ruled in for an acute non-Q wave RI with EKG changes. Active Medications Acetaminophen (Acetaminophen Tab 325 Mg Tab) 650 mg PO Q4HR PRN PRN Reason: Fever and/ or Mild Pain Last Admin: 01/26/24 08:52 Dose: 650 mg Hydrocodone Bitart/Acetaminophen (Hydrocodone/Apap 7.5-325mg 1 Each Tab) 1 each PO Q8HR PRN PRN Reason: Pain Last Admin: 01/26/24 04:14 Dose: 1 each Alprazolam (Alprazolam 0.25 Mg Tab) 0.25 mg PO Q6HR PRN PRN Reason: Mild Anxiety Alprazolam (Alprazolam 0.5 Mg Tab) 0.5 mg PO Q6HR PRN PRN Reason: Moderate Anxiety Last Admin: 01/26/24 10:08 Dose: 0.5 mg Aspirin (Aspirin 81 Mg) 81 mg PO DAILY BAN Last Admin: 01/26/24 09:32 Dose: Not Given Atorvastatin Calcium (Atorvastatin 40 Mg Tab) 40 mg PO HS BAN Enoxaparin Sodium (Enoxaparin 40 Mg/0.4 Ml Syringe) 40 mg SQ DAILY [facility] Last Admin: 01/26/24 08:53 Dose: 40 mg Sodium Chloride (Saline 0.9%) 1,000 mls @ 75 mls/hr IV .[id number] [facility] Last Admin: 01/26/24 14:05 Dose: Not Given Heparin Sodium (Porcine) 10, (000 unit/ Sodium Chloride) 1,001 mls @ 999 mls/hr IRRIGATION ONCE PRN PRN Reason: INTRA-OP Stop: 01/27/24 23:00 Heparin Sodium (Porcine) 2,500 (unit/ Sodium Chloride) 250.5 mls @ 250 mls/hr IRRIGATION ONCE PRN PRN Reason: INTRA-OP Stop: 01/27/24 23:00 Sodium Chloride 1,000 ml/ IV (Solution) 1,000 mls @ 79.379 mls/hr IV .[id number] [facility] Last Admin: 01/26/24 09:37 Dose: 79.379 mls/hr Sodium Chloride (Saline 0.9%) 1,000 mls @ 75 mls/hr IV .[id number] [facility] Stop: 01/26/24 18:14 Last Admin: 01/26/24 13:15 Dose: 75 mls/hr Losartan Potassium (Losartan 25 Mg Tab) 25 mg PO DAILY [facility] Metoprolol Succinate (Metoprolol Succinate (Er) 25 Mg Tab.Er.24h) 25 mg PO DAILY [facility] Miscellaneous Information (Rx Info: Iv Contrast Was Given 1 Each Misc) 1 each MISCELLANE DAILY PRN PRN Reason: Per Protocol Stop: 01/28/24 13:05 Nitroglycerin (Nitroglycerin Sl Tabs 0.4 Mg Tab) 0.4 mg SUBLINGUAL Q5M PRN PRN Reason: Chest Pain Nitroglycerin (Nitroglycerin Sl Tabs 0.4 Mg Tab) 0.4 mg SUBLINGUAL Q5M PRN PRN Reason: Chest Pain Ondansetron HCl (Ondansetron 4 Mg/2 Ml Vial) 4 mg IVP Q6HR PRN PRN Reason: Nausea And Vomiting Last Admin: 01/26/24 11:44 Dose: 4 mg Pantoprazole Sodium (Pantoprazole 40 Mg/10 Ml Vial) 40 mg IVP BID [facility] Last Admin: 01/26/24 08:53 Dose: 40 mg Polyethylene Glycol (Polyethylene Glycol 3350 17 Gm Powd.Pack) 17 gm PO DAILY PRN PRN Reason: Constipation Simethicone (Simethicone 80 Mg Chewable) 120 mg PO QID PRN PRN Reason: GI Upset Last Admin: 01/26/24 09:37 Dose: 120 mg On examination: VITAL SIGNS: [98, 92, 16, 119/80, 98% room air] GENERAL APPEARANCE: BMI 20.8, laying in bed HEENT: Normal external appearance of nose and ear. Oral cavity normal EYES: Pupils equal. Conjunctiva normal. NECK: JVD not raised. Mass not palpable. RESPIRATORY: Respiratory effort normal. Lungs clear to auscultation. CARDIOVASCULAR: First and second sounds normal. No edema. ABDOMEN: Soft. Liver and spleen not palpable. Mild tenderness-no guarding rigidity. No mass palpable. PSYCHIATRY: Alert and oriented x3. Mood and affect normal. INVESTIGATIONS, reviewed in the clinical context: January 24: White count 14.5 hemoglobin 14.2 platelets 220 sodium 123 potassium 4.4 BUN 7 creatinine 0.41 bicarb 18 Lactic acid 3.2 Troponin I 0.529, 0.493, 0.619 proBNP 9730 2D echocardiogram: EF 35 to 40%. Enlarged left atrium. Apical hypokinesis. CT abdomen pelvis: Postoperative changes of herniorrhaphy. Moderate free air. Chest CTA: Negative for PE EKG: Flipped T waves across the leads 9 LDL 73 Assessment and plan -Acute postoperative nausea severe vomiting. Following laparoscopic robotic assisted repair of ventral hernia on January [address] Ortega NPO. 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 Banks, today Medical management Aspirin. Toprol-XL. Lipitor -Lactic acidosis type II, secondary to volume depletion. -Severe hyponatremia mostly volume depletion and poor oral intake Saline -Leukocytosis reactive secondary to surgery and nausea vomiting. Consult surgery to evaluate for any infection -Hypomagnesemia secondary to nausea vomiting will be replaced -Occasional marijuana use -Prior history of lymphoma treated with chemotherapy -Chronic congestive heart failure EF of 35 to 40% known from chemotherapy for lymphoma Cozaar. Past Medical History Past Medical History: Cancer, GERD/Reflux, Hearing Disorder / Deafness Additional Past Medical History / Comment(s): Stomach pain and nausea daily around 2-3 am. Hx Lymphoma 2021. Nausea, vomiting symptoms since 03/26. Hard of hearing. History of Any Multi-Drug Resistant Organisms: None Reported Past Surgical History: Hernia Repair Additional Past Surgical History / Comment(s): EGD/colonoscopy, hemorrhoidectomy, mediport to right side, hiatal hernia repair. Imbilical hernia 01/24/24 Past Anesthesia/Blood Transfusion Reactions: No Reported Reaction Past Psychological History: No Psychological Hx Reported Smoking Status: Former smoker Past Alcohol Use History: Occasional Additional Past Alcohol Use History / Comment(s): Quit smoking in 2018, smoked 10-15 cigarettes/day for 10 yrs. Past Drug Use History: Marijuana Additional Drug Use History / Comment(s): Smokes marijuana daily. Aware no use 24 hrs prior to procedure. - Past Family History Sister(s) Family Medical History: Cancer Additional Family Medical History / Comment(s): Unsure of type of cancer but thinks lymphoma. Medications and Allergies Home Medications Medication Instructions Recorded Confirmed Type Prochlorperazine [Compazine] 10 mg PO Q6H PRN 10/27/23 01/25/24 History oxyCODONE HCL [OxyIR] 5 mg PO Q6H PRN 3 Days #15 tab 01/24/24 01/25/24 Rx Simethicone [Gas-X] 125 mg PO QID PRN 01/25/24 01/25/24 History Allergies Allergy/AdvReac Type Severity Reaction Status Date / Time No Known Allergies Allergy Verified 01/25/24 10:07 Physical Exam Vitals: Vital Signs Temp Pulse Pulse Resp BP BP Pulse Ox 01/25/24 11:49 98.2 F 84 18 108/74 98 01/25/24 10:00 81 18 110/74 99 01/25/24 09:00 89 16 108/72 99 01/25/24 06:58 71 18 115/72 99 01/25/24 04:45 98 18 124/80 98 01/25/24 03:30 80 20 129/72 96 01/25/24 02:56 97.9 F 105 H 18 151/104 100 Intake and Output 01/24/24 01/25/24 01/25/24 22:59 06:59 14:59 Other: Voiding Method Toilet Weight 79.379 kg 79.379 kg Results CBC & Chem 7: 01/25/24 04:02 01/25/24 04:02 Labs: Abnormal Lab Results - Last 24 Hours (Table) 01/25/24 01/25/24 01/25/24 Range/Units 04:02 04:02 04:02 WBC 14.5 H (3.8-10.6) k/uL Neutrophils # 12.4 H (1.3-7.7) k/uL Lymphocytes # 0.7 L (1.0-4.8) k/uL Monocytes # 1.1 H (0-1.0) k/uL Sodium 123 L (137-145) mmol/L Chloride 94 L (98-107) mmol/L Carbon Dioxide 18 L (22-30) mmol/L BUN 7 L (9-20) mg/dL Creatinine 0.41 L (0.66-1.25) mg/dL Glucose 127 H (74-99) mg/dL Plasma Lactic Acid Michael (0.7-2.0) mmol/L Magnesium 1.2 L (1.6-2.3) mg/dL Troponin I 0.529 H* (0.000-0.034) ng/mL Lipase 20 L (23-300) U/L 01/25/24 01/25/24 01/25/24 Range/Units 05:23 06:12 09:47 WBC (3.8-10.6) k/uL Neutrophils # (1.3-7.7) k/uL Lymphocytes # (1.0-4.8) k/uL Monocytes # (0-1.0) k/uL Sodium (137-145) mmol/L Chloride (98-107) mmol/L Carbon Dioxide (22-30) mmol/L BUN (9-20) mg/dL Creatinine (0.66-1.25) mg/dL Glucose (74-99) mg/dL Plasma Lactic Acid Michael 3.2 H* 2.1 H* (0.7-2.0) mmol/L Magnesium (1.6-2.3) mg/dL Troponin I 0.493 H* (0.000-0.034) ng/mL Lipase (23-300) U/L 01/25/24 Range/Units 09:47 WBC (3.8-10.6) k/uL Neutrophils # (1.3-7.7) k/uL Lymphocytes # (1.0-4.8) k/uL Monocytes # (0-1.0) k/uL Sodium (137-145) mmol/L Chloride (98-107) mmol/L Carbon Dioxide (22-30) mmol/L BUN (9-20) mg/dL Creatinine (0.66-1.25) mg/dL Glucose (74-99) mg/dL Plasma Lactic Acid Michael (0.7-2.0) mmol/L Magnesium (1.6-2.3) mg/dL Troponin I 0.619 H* (0.000-0.034) ng/mL Lipase (23-300) U/L Thrombosis Risk Factor Assmnt - Choose All That Apply Each Factor Represents 1 point: Minor surgery planned Each Risk Factor Represents 2 Points: Age 61-74 years Thrombosis Risk Factor Assessment Total Risk Factor Score: 3 Thrombosis Risk Factor Assessment Level: Moderate Risk
[2024-01-26 20:29] VITALS: TEMP 98.1
[2024-01-26] MEDS: ATORVASTATIN 40 MG TAB PO SCH (20:35)
[2024-01-27] MEDS ORDERED: HEPARIN SODIUM,PORCINE (1 ML) 2,500 UNIT in SODIUM CHLORIDE 0.9% 250 ML IRRIGATION PRN (07:00)
[2024-01-27] MEDS ORDERED: HEPARIN SODIUM,PORCINE 10,000 UNIT in SODIUM CHLORIDE 0.9% 1,000 ML IRRIGATION PRN (07:00)
[2024-01-27 07:31] LABS: African American GFR (CKD) >90 (>60 ml/min/1.73 sqM); Anion Gap 7 mmol/L; Blood Urea Nitrogen 6 mg/dL (9-20); Calcium 8.7 mg/dL (8.4-10.2); Carbon Dioxide 22 mmol/L (22-30); Chloride 101 mmol/L (98-107); Glucose 107 mg/dL (74-99); Non-African American GFR(CKD) >90 (>60 ml/min/1.73 sqM); Potassium 3.9 mmol/L (3.5-5.1); Sodium 130 mmol/L (137-145)
[2024-01-27 08:39] VITALS: PULSE 98
[2024-01-27] MEDS: LOSARTAN 25 MG TAB PO SCH (08:46)
[2024-01-27] MEDS: METOPROLOL SUCCINATE (ER) 25 MG TAB.ER.24H PO SCH (08:46)
--- NOTE | 2024-01-27 11:18 | P.PN ---
Subjective HISTORY OF PRESENT ILLNESS: This is a 68-year-old male with a past medical history significant for GERD, congestive heart failure, lymphoma, and former nicotine dependence. Patient follows with a museum assistant out of town, Dr. Molina. We have been asked to see the patient in consultation for elevated troponin. Patient examined at the bedside. Patient underwent laparoscopic robotic assisted repair of ventral hernia with Dr. Ortega 01/24/24. He was discharged home in apparent stable condition. He presented back to the hospital that she complained of abdominal pain, nausea, vomiting, diarrhea. He denies any chest pain or pressure. He denies any shortness of breath. He does report having some mild abdominal pain. He does report having some dizziness yesterday. He denies a history of CAD. He reports he was diagnosed with congestive heart failure about 2 years ago when he was undergoing treatment for lymphoma. He denies a history of hypertension, hyperlipidemia, or diabetes. He states he is a former cigarette smoker and quit smoking a few years ago. DIAGNOSTICS: - EKG reveals sinus mechanism with T wave inversions in precordial leads - Chest xray parenchymal scarring versus right perihilar airspace consolidation or infiltrating mass. Mild pulmonary edema - Laboratory data: WBC 14.5. Hemoglobin 14.2. Platelet count 220. D-dimer 0.55. Sodium 123. Potassium 4.4. BUN 7. Creatinine 0.41. proBNP 9730. Troponin 0.529. 0.493. 0.619. - Current home cardiac medications include none. - No previous echocardiogram or cardiac catheterization available in EMR for review 01/27/2024 Patient is status postcardiac catheterization with Dr. Banks revealing intermediate disease involving the mid RCA documented to be nonflow limiting by Doppler wire. Normal left-sided filling pressures. Patient examined this morning the bedside. Patient currently denies chest pain or pressure. He denies shortness of breath. Vital signs are stable. Cardiogram completed revealing ejection fraction 35 to 40%, mild MS, mild MR, trace AR, mild TR PHYSICAL EXAM: VITAL SIGNS: Reviewed. GENERAL: Well-developed in no acute distress. HEENT: Head is normocephalic. Pupils are equal, round. Sclerae anicteric. Mucous membranes of the mouth are moist. Neck supple. No JVD or thyromegaly LUNGS: Respirations even and unlabored. Lungs essentially clear to auscultation bilaterally. HEART: Regular rate and rhythm. S1 and S2 heard. ABDOMEN: Soft. Nondistended. Nontender. EXTREMITIES: Normal range of motion. No clubbing or cyanosis. Peripheral pulses intact. No lower extremity edema NEUROLOGIC: Awake and alert. Oriented x 3. ASSESSMENT: Nausea, vomiting, diarrhea Status post laparoscopic robotic assisted repair of ventral hernia, 01/24/2024 Hyponatremia Elevated troponins with abnormal EKG, NSTEMI Takotsubo cardiomyopathy Chronic heart failure with reduced EF, currently euvolemic History of lymphoma History of GERD Former nicotine dependence PLAN: Continue current cardiac medications Patient is stable for discharge home today from a cardiac standpoint He is to follow-up postdischarge with his primary museum assistant Nurse practitioner note has been reviewed by physician. Signing provider agrees with the documented findings, assessment, and plan of care documented by PUBLICITY CONSULTANT as a scribe. Objective - Vital Signs Vital signs: Vital Signs Temp 98.1 F 01/27/24 08:39 Pulse 98 01/27/24 08:39 Resp 18 01/27/24 08:39 BP 146/93 01/27/24 08:39 Pulse Ox 99 01/27/24 08:39 FiO2 Intake & Output 01/26/24 01/27/24 01/27/24 18:59 06:59 18:59 Intake Total 1598 540 540 Balance 1598 540 540 Weight 79.6 kg Intake: IV 200 Oral 1398 540 540 Other: Voiding Method Urinal Toilet Toilet # Voids 1 2 1 - Labs CBC & Chem 7: 01/26/24 07:15 01/27/24 06:42 Labs: Abnormal Lab Results - Last 24 Hours (Table) 01/26/24 01/27/24 Range/Units 07:15 06:42 Sodium 130 L (137-145) mmol/L BUN 6 L (9-20) mg/dL Creatinine 0.52 L (0.66-1.25) mg/dL Glucose 107 H (74-99) mg/dL HDL Cholesterol 76.00 H (40.00-60.00) mg/dL
[2024-01-27 12:41] VITALS: BP 119/80; RESP 16
--- NOTE | 2024-01-27 17:45 | P.DS ---
Providers Date of admission: 01/25/24 08:49 Expected date of discharge: 01/27/24 Attending physician: Narciso Henao Consults: 01/25/24 08:48 Consult Physician Urgent Consulting Provider: Marcelo Banks Consult Reason/Comments: elevated troponin Do you want consulting provider notified?: Yes 01/26/24 11:41 Consult Physician Routine Consulting Provider: David Ortega Consult Reason/Comments: Recent hernia repair 01/23 Do you want consulting provider notified?: Yes Primary care physician: Corine Tay MD Hospital Course: Patient with history of-year-old male who had recent umbilical hernia repair came with complaints of nausea vomiting abdominal pain found to be hyponatremic. Patient also has mild elevated creatinine of 0.04, 05, 06. Because of which patient is admitted for cardiology evaluation. Patient had a CT of the abdomen which showed postsurgical changes CT angio of the chest which showed mild pleural effusions, abdominal x-ray and a chest x-ray. Patient has elevated BNP of 9500 but patient clinically he is not volume overloaded patient may be slightly volume depleted because of nausea vomiting. Patient is still bit nauseous. Patient was also having watery diarrhea. There is no evidence of pneumonia on the CT scan although chest x-ray was read as possibility of pneumonia. Patient's creatinine is within normal limits. Magnesium is low at 1.2 which will be replaced. January 25: at the bedside. Patient went discharged and had some nausea. Did have severe vomiting. Multiple times. Has had presented here. Today having nausea but no vomiting. In the past patient's had congestive heart failure from chemotherapy for lymphoma treatment. Later this afternoon patient underwent cardiac catheterization with Dr. Banks. Found to have intermediate disease in the mid RCA. For medical management. Patient had ruled in for an acute non-Q wave DE with EKG changes. January 26: Patient vehemently dislikes hospital food. Rather upset as no choice of food. Had a lengthy talk with the patient. Did want him to eat some before he goes home. Patient did get some [employer] burrito for breakfast. He did also tolerate lunch. Has been passing flatus. Abdominal pain better. Cleared by surgery. And cardiology. Questions answered. Patient absolutely adamant that he will go home today. Discussion and discharge planning more than 35 minutes On examination: VITAL SIGNS: 98.1, 98, 16, 119/80, 97% room air GENERAL APPEARANCE: Comfortable HEENT: Normal external appearance of nose and ear. Oral cavity normal EYES: Pupils equal. Conjunctiva normal. NECK: JVD not raised. Mass not palpable. RESPIRATORY: Respiratory effort normal. Lungs clear to auscultation. CARDIOVASCULAR: First and second sounds normal. No edema. ABDOMEN: Soft. Liver and spleen not palpable. Mild tenderness-no guarding rigidity. No mass palpable. PSYCHIATRY: Alert and oriented x3. Mood and affect normal. INVESTIGATIONS, reviewed in the clinical context: January 26: Potassium 3.9 creatinine 0.52 sodium 130 January 24: White count 14.5 hemoglobin 14.2 platelets 220 sodium 123 potassium 4.4 BUN 7 creatinine 0.41 bicarb 18 Lactic acid 3.2 Troponin I 0.529, 0.493, 0.619 proBNP 9730 2D echocardiogram: EF 35 to 40%. Enlarged left atrium. Apical hypokinesis. CT abdomen pelvis: Postoperative changes of herniorrhaphy. Moderate free air. Chest CTA: Negative for PE EKG: Flipped T waves across the leads 9 LDL 73 Assessment and plan -Acute postoperative nausea severe vomiting. Following laparoscopic robotic assisted repair of ventral hernia on January [address] Ortega Above symptoms settle down. Did tolerate a diet. 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 Banks, today Medical management Aspirin. Toprol-XL. Lipitor -Lactic acidosis type II, secondary to volume depletion. -Severe hyponatremia mostly volume depletion and poor oral intake Saline -Leukocytosis reactive secondary to surgery and nausea vomiting. Consult [facility] to evaluate for any infection -Hypomagnesemia secondary to nausea vomiting will be replaced -Occasional marijuana use -Prior history of lymphoma treated with chemotherapy -Chronic congestive heart failure EF of 35 to 40% known from chemotherapy for lymphoma Cozaar. Disposition: Home Past Medical History Past Medical History: Cancer, GERD/Reflux, Hearing Disorder / Deafness Additional Past Medical History / Comment(s): Stomach pain and nausea daily around 2-3 am. Hx Lymphoma 2021. Nausea, vomiting symptoms since 03/26. Hard of hearing. History of Any Multi-Drug Resistant Organisms: None Reported Past Surgical History: Hernia Repair Additional Past Surgical History / Comment(s): EGD/colonoscopy, hemorrhoidectomy, mediport to right side, hiatal hernia repair. Imbilical hernia 01/24/24 Past Anesthesia/Blood Transfusion Reactions: No Reported Reaction Past Psychological History: No Psychological Hx Reported Smoking Status: Former smoker Past Alcohol Use History: Occasional Additional Past Alcohol Use History / Comment(s): Quit smoking in 2019, smoked 10-15 cigarettes/day for 10 yrs. Past Drug Use History: Marijuana Additional Drug Use History / Comment(s): Smokes marijuana daily. Aware no use 24 hrs prior to procedure. Plan - Discharge Summary Discharge Rx Participant: No New Discharge Prescriptions: New Aspirin 81 mg PO DAILY tab Atorvastatin [Lipitor] 40 mg PO HS #30 tab Losartan [Cozaar] 25 mg PO HS #30 tab Metoprolol Succinate (ER) [Toprol XL] 25 mg PO DAILY #30 tab Continue Prochlorperazine [Compazine] 10 mg PO Q6H PRN PRN Reason: Nausea oxyCODONE HCL [OxyIR] 5 mg PO Q6H PRN 3 Days #15 tab PRN Reason: Pain Simethicone [Gas-X] 125 mg PO QID PRN PRN Reason: Gi Upset Discharge Medication List Prochlorperazine [Compazine] 10 mg PO Q6H PRN 10/27/23 [History] oxyCODONE HCL [OxyIR] 5 mg PO Q6H PRN 3 Days #15 tab 01/24/24 [Rx] Simethicone [Gas-X] 125 mg PO QID PRN 01/25/24 [History] Aspirin 81 mg PO DAILY tab 01/27/24 [Rx] Atorvastatin [Lipitor] 40 mg PO HS #30 tab 01/27/24 [Rx] Losartan [Cozaar] 25 mg PO HS #30 tab 01/27/24 [Rx] Metoprolol Succinate (ER) [Toprol XL] 25 mg PO DAILY #30 tab 01/27/24 [Rx] Follow up Appointment(s)/Referral(s): Cardiology, [Other] - 1 Week Corine Tay MD [Primary Care Provider] - 1-2 days David Ortega MD [STAFF PHYSICIAN] - 1 Week (office closed please call to schedule ) Patient Instructions/Handouts: *Surgery [facility] - After Heart Catheterization - Information Services Consultant Instructions Discharge Disposition: HOME SELF-CARE
== END 2024-01-27 14:26 | disposition home or self-care (01) | DRG 391 ==
LOC: EC 02:51 → 3SCARD 08:49
PROVIDERS: ADMIT Hospitalist; ATTEND Hospitalist
PROC: B2111ZZ Fluoroscopy of Multiple Coronary Arteries using Low Osmolar Contrast (ICD-10-PCS; principal; 2024-01-26 09:30)
PROC: 4A023N7 Measurement of Cardiac Sampling and Pressure, Left Heart, Percutaneous Approach (ICD-10-PCS; principal; 2024-01-26 09:30)
DX: K91.0 Vomiting following gastrointestinal surgery (principal); I21.A1 Myocardial infarction type 2; E87.1 Hypo-osmolality and hyponatremia; E87.20 Acidosis, unspecified; I50.22 Chronic systolic (congestive) heart failure; I51.81 Takotsubo syndrome; R19.7 Diarrhea, unspecified; K21.9 Gastro-esophageal reflux disease without esophagitis; E83.42 Hypomagnesemia; E86.0 Dehydration; H91.90 Unspecified hearing loss, unspecified ear; Z85.72 Personal history of non-Hodgkin lymphomas; I25.10 Atherosclerotic heart disease of native coronary artery without angina pectoris; Z79.82 Long term (current) use of aspirin; Z79.899 Other long term (current) drug therapy; Z87.891 Personal history of nicotine dependence; Z92.21 Personal history of antineoplastic chemotherapy
CPT/HCPCS: 36415; 71045; 71275; 74018; 74177; 80048; 80053; 80061; 81001; 83605; 83690; 83735; 83880; 83930; 83935; 84100; 84145; 84300; 84443; 84484; 85025; 85027; 85379; 85610; 85730; 93005; 93306; 93458; 96361; 96365; 96366; 96375; 99285

== ENCOUNTER 2024-08-28 10:41 | Inpatient (IN) | payer OTHER, MEDICARE ==
[2024-08-28 10:51] LABS: Glucose,Whole Blood 61 mg/dL (70-110)
--- NOTE | 2024-08-28 11:35 | ED ---
General Adult HPI - General Chief complaint: Weakness Stated complaint: weakness, dehydration, hypoglycemia Time Seen by Provider: 08/28/24 10:55 Source: EMS Mode of arrival: EMS - History of Present Illness Initial comments: 69-year-old male with a history of lymphoma presents to the emergency department via EMS for evaluation of generalized weakness, altered mental status. P chinyere's states that since last night the patient has been very weak and confused. She states that he was saying things that did not make sense. Patient's also states that he has been running fevers at home. Reports dark cloudy urine at home. Patient denies chest pain, shortness of breath. Admits to diffuse abdominal pain. He follows with Dr. Talbert at [facility] for oncology. Patient's notes that he is no longer in remission. He is not currently on chemotherapy - Related Data Home Medications Medication Instructions Recorded Confirmed Prochlorperazine [Compazine] 10 mg PO Q6H PRN 10/27/23 08/31/24 Acetaminophen Tab [Tylenol] 500 mg PO Q6H PRN 08/28/24 08/31/24 Famotidine [Pepcid] 20 mg PO BID 08/28/24 08/31/24 HYDROcodone/APAP 5-325MG [Biggers 1 tab PO Q6HR PRN 08/28/24 08/31/24 5-325] diphenhydrAMINE [Benadryl] 50 mg PO Q4H 08/28/24 08/31/24 Allergies Allergy/AdvReac Type Severity Reaction Status Date / Time No Known Allergies Allergy Verified 08/28/24 12:16 Review of Systems ROS Statement: Those systems with pertinent positive or pertinent negative responses have been documented in the HPI. ROS Other: All systems not noted in ROS Statement are negative. Past Medical History Past Medical History: Cancer, GERD/Reflux, Hearing Disorder / Deafness Additional Past Medical History / Comment(s): Stomach pain and nausea daily around 2-3 am. Hx Lymphoma 2021. Nausea, vomiting symptoms since 03/26. Hard of hearing. History of Any Multi-Drug Resistant Organisms: None Reported Past Surgical History: Hernia Repair Additional Past Surgical History / Comment(s): EGD/colonoscopy, hemorrhoidectomy, mediport to right side, hiatal hernia repair. Past Anesthesia/Blood Transfusion Reactions: No Reported Reaction Past Psychological History: No Psychological Hx Reported Smoking Status: Former smoker Past Alcohol Use History: Occasional Past Drug Use History: Marijuana - Past Family History Sister(s) Family Medical History: Cancer Additional Family Medical History / Comment(s): Unsure of type of cancer but thinks lymphoma. Father Additional Family Medical History / Comment(s): ETOH, of alcoholism General Exam Limitations: altered mental status General appearance: alert, in no apparent distress Head exam: Present: atraumatic, normocephalic, normal inspection Eye exam: Present: normal appearance, PERRL, EOMI. Absent: scleral icterus, conjunctival injection, periorbital swelling ENT exam: Present: mucous membranes dry Neck exam: Present: normal inspection. Absent: tenderness, meningismus, lymphadenopathy Respiratory exam: Present: normal lung sounds bilaterally. Absent: respiratory distress, wheezes, rales, rhonchi, stridor Cardiovascular Exam: Present: normal rhythm, tachycardia, normal heart sounds. Absent: systolic murmur, diastolic murmur, rubs, gallop, clicks GI/Abdominal exam: Present: soft, tenderness, normal bowel sounds. Absent: distended, guarding, rebound, rigid Extremities exam: Present: full ROM, normal capillary refill, other (Decreased strength against resistance in bilateral upper and lower extremities). Absent: tenderness, pedal edema, joint swelling, calf tenderness Neurological exam: Present: alert, altered, CN II-XII intact Psychiatric exam: Present: normal affect, normal mood Skin exam: Present: warm, dry, intact, normal color. Absent: rash Course Vital Signs 08/28/24 08/28/24 08/28/24 10:50 13:15 15:37 Temperature 97.7 F Pulse Rate 122 H 122 H 120 H Pulse Rate [ Drug Safety Scientist ] Respiratory 20 20 18 Rate Blood Pressure 109/75 132/88 112/70 Blood Pressure [Supine] O2 Sat by Pulse 100 97 97 Oximetry 08/28/24 08/28/24 08/28/24 18:00 19:00 20:00 Temperature Pulse Rate 120 H 120 H 116 H Pulse Rate [ Drug Safety Scientist ] Respiratory 18 18 18 Rate Blood Pressure 100/66 95/67 96/63 Blood Pressure [Supine] O2 Sat by Pulse 98 94 L 96 Oximetry 08/28/24 08/28/24 08/28/24 21:00 22:33 23:54 Temperature 99.1 F Pulse Rate 124 H Pulse Rate [ 134 H Drug Safety Scientist ] Respiratory 18 20 Rate Blood Pressure 96/67 Blood Pressure 89/68 [Supine] O2 Sat by Pulse 94 L 90 L Oximetry 08/29/24 08/29/24 08/29/24 00:40 03:19 04:48 Temperature 100.4 F H 98.7 F 98.9 F Pulse Rate Pulse Rate [ 124 H 133 H Drug Safety Scientist ] Respiratory 22 25 H Rate Blood Pressure Blood Pressure 111/72 76/57 [Supine] O2 Sat by Pulse 94 L 93 L Oximetry 08/29/24 08/29/24 08/29/24 05:12 05:45 06:00 Temperature Pulse Rate Pulse Rate [ 117 H 116 H 122 H Drug Safety Scientist ] Respiratory 20 17 20 Rate Blood Pressure Blood Pressure 91/60 94/64 93/60 [Supine] O2 Sat by Pulse 94 L 96 95 Oximetry 08/29/24 08/29/24 08/29/24 07:16 07:27 07:34 Temperature 97.2 F L 97.3 F L Pulse Rate 122 H 113 H Pulse Rate [ Drug Safety Scientist ] Respiratory 18 18 Rate Blood Pressure 86/62 108/67 Blood Pressure [Supine] O2 Sat by Pulse 92 L 98 Oximetry 08/29/24 08/29/24 08/29/24 08:00 09:00 10:00 Temperature 98.4 F 99.7 F H Pulse Rate 121 H 115 H 121 H Pulse Rate [ Drug Safety Scientist ] Respiratory 18 18 18 Rate Blood Pressure 93/66 97/61 87/71 Blood Pressure [Supine] O2 Sat by Pulse 97 92 L Oximetry 08/29/24 08/29/24 08/29/24 11:00 11:56 12:00 Temperature 100.6 F H Pulse Rate 129 H 125 H 125 H Pulse Rate [ Drug Safety Scientist ] Respiratory 18 18 18 Rate Blood Pressure 71/51 93/61 104/82 Blood Pressure [Supine] O2 Sat by Pulse 98 96 94 L Oximetry 08/29/24 08/29/24 08/29/24 12:54 13:21 14:00 Temperature 100.9 F H 98.5 F Pulse Rate 131 H 137 H Pulse Rate [ Drug Safety Scientist ] Respiratory 20 22 Rate Blood Pressure 93/68 76/57 Blood Pressure [Supine] O2 Sat by Pulse 93 L 95 Oximetry Medical Decision Making - Medical Decision Making Was pt. sent in by a medical professional or institution (REFUGIO Mcdowell, PATCH PRESS OPERATOR, urgent care, hospital, or long-term...) When possible be specific @ -No Did you speak to anyone other than the patient for history (EMS, parent, family, police, friend...)? What history was obtained from this source @ -Patient's provided history for this patient Did you review nursing and triage notes (agree or disagree)? Why? @ -I reviewed and agree with nursing and triage notes Were old charts reviewed (outside hosp., previous admission, EMS record, old EKG, old radiological studies, urgent care reports/EKG's, long-term records)? Report findings @ -No old charts were reviewed Differential Diagnosis (chest pain, altered mental status, abdominal pain women, abdominal pain men, vaginal bleeding, weakness, fever, dyspnea, syncope, headache, dizziness, GI bleed, back pain, seizure, CVA, palpatations, mental health, musculoskeletal)? @ -Differential Weakness: Hypoglycemia, shock, sepsis, hyponatremia, anemia, infection, FL, ETOH, adverse medicine reaction, overdose, stroke, this is not meant to be an all-inclusive list. EKG interpreted by me (3pts min.). @ -EKG at X-rays interpreted by me (1pt min.). @ -Chest x-ray shows no acute process ] CT interpreted by me (1pt min.). @ -The brain shows no acute process CT of the abdomen questionable right hilar lung mass groundglass opacities right lung, interval development of hepatomegaly and megaly, small ascites U/S interpreted by me (1pt. min.). @ -None done What testing was considered but not performed or refused? (CT, X-rays, U/S, labs)? Why? @ -None What meds were considered but not given or refused? Why? @ -None Did you discuss the management of the patient with other professionals (professionals i.e. REFUGIO Mcdowell, PATCH PRESS OPERATOR, lab, RT, psych nurse, licensed social worker, barber, teacher, toxics program officer, medical case manager)? Give summary @ -Management discussed with Octavio with oncology recommended adding uric acid, phosphorus, magnesium to the labs. They will consult on the patient Management was discussed with Pau Smith with [facility], as Dr. Henao is off, who is accepting of the admission Was smoking cessation discussed for >3mins.? @ -No Was critical care preformed (if so, how long)? @ -No Were there social determinants of health that impacted care today? How? (Homelessness, low income, unemployed, alcoholism, drug addiction, transportation, low edu. Level, literacy, decrease access to med. care, longterm, rehab)? @ -no Was there de-escalation of care discussed even if they declined (Discuss DNR or withdrawal of care, Hospice)? DNR status @ -No What co-morbidities impacted this encounter? (DM, HTN, Smoking, COPD, CAD, Cancer, CVA, ARF, Chemo, Hep., AIDS, mental health diagnosis, sleep apnea, morbid obesity)? @ -History of lymphoma Was patient admitted / discharged? Hospital course, mention meds given and route, prescriptions, significant lab abnormalities, going to OR and other pertinent info. @ -[Admitted. Patient presented the emergency department for evaluation of altered mental status, weakness. Patient was brought in by paramedics he received 1 L normal saline in the ambulance completed in the ED. Patient was hypoglycemic and therefore was started on D5 normal saline at 125ml/hr. He was also provided another liter bolus in the ED. Laboratory studies significant for WBC of 110, hemoglobin 11.7; elevated coagulation studies, hyponatremia with a sodium of 127 potassium 4.8 elevated BUN and creatinine. Lactic acid of 11.4. Reflex decreased to 8.9 after fluid hydration. Negative troponin. UA shows no evidence of infectious process. CT brain shows no acute process. Chest x-ray shows no evidence of acute infiltrate. CT abdomen pelvis shows moderate hepatosplenomegaly, questionable right hilar lung mass" groundglass opacities. Small ascites. Patient was reevaluated following results. I discussed the findings with the patient and his . The case was discussed with oncology. Recommended adding additional labs including uric acid, phosphorus, magnesium. After resulting of these labs with elevated uric acid medication was ordered by oncology. There is no identified source of infection. Blood cultures were obtained. Patient was administered 2 g of Rocephin. Patient admitted to the hospital. The management was also discussed with Pau Smith with [facility] who is accepting of the admission. Case discussed with Dr. Pineda Undiagnosed new problem with uncertain prognosis? @ -No Drug Therapy requiring intensive monitoring for toxicity (Heparin, Nitro, Insulin, Cardizem)? @ -No Were any procedures done? @ -No Diagnosis/symptom? @ -Weakness, altered mental status Acute, or Chronic, or Acute on Chronic? @ -Acute Uncomplicated (without systemic symptoms) or Complicated (systemic symptoms)? @ -complicated Side effects of treatment? @ -No Exacerbation, Progression, or Severe Exacerbation? @ -Progression Poses a threat to life or bodily function? How? (Chest pain, [place], FL, pneumonia, PE, COPD, DKA, ARF, appy, cholecystitis, CVA, Diverticulitis, Homicidal, Suicidal, threat to staff... and all critical care pts) @ -Yes - Lab Data Result diagrams: 08/31/24 05:55 08/31/24 10:38 Lab Results 08/28/24 08/28/24 08/28/24 Range/Units 10:49 11:19 11:19 WBC 110.3 H* (3.8-10.6) k/uL RBC 3.58 L (4.30-5.90) m/uL Hgb 11.7 L (13.0-17.5) gm/dL Hct 34.9 L (39.0-53.0) % MCV 97.3 (80.0-100.0) fL MCH 32.5 (25.0-35.0) pg MCHC 33.4 (31.0-37.0) g/dL RDW 13.9 (11.5-15.5) % Plt Count 81 L (150-450) k/uL MPV 12.5 Neutrophils % (Manual) 44 % Band Neuts % (Manual) 11 % Lymphocytes % (Manual) 10 % Monocytes % (Manual) 12 % Eosinophils % (Manual) 19 % Metamyelocytes % 4 % Myelocytes % 2 % Promyelocytes % 1 % Neutrophils # (Manual) 60.60 H (1.3-7.7) k/uL Lymphocytes # (Manual) 11.03 H (1.0-4.8) k/uL Monocytes # (Manual) 13.24 H (0-1.0) k/uL Eosinophils # (Manual) 20.96 H (0-0.7) k/uL Metamyelocytes # (Man) 4.41 H (0) k/uL Myelocytes # (Manual) 2.21 H (0) k/uL Promyelocytes # (Man) 1.10 H (0) k/uL Nucleated RBCs 9 H (0-0) /100 WBC Manual Slide Review Performed Hypochromasia Slight Poikilocytosis (manual Present Tear Drop Cells Present Rouleaux Present PT 40.4 H (10.0-12.5) sec INR 4.1 H (<1.2) APTT 35.2 H (22.0-30.0) sec Sodium (137-145) mmol/L Potassium (3.5-5.1) mmol/L Chloride (98-107) mmol/L Carbon Dioxide (22-30) mmol/L Anion Gap mmol/L BUN (9-20) mg/dL Creatinine (0.66-1.25) mg/dL Est GFR (CKD-EPI)AfAm (>60 ml/min/1.73 sqM) Est GFR (CKD-EPI)NonAf (>60 ml/min/1.73 sqM) Glucose (74-99) mg/dL POC Glucose (mg/dL) 61 L (70-110) mg/dL POC Glu Manager Therapy ID Mckenzie Vallejo Lactic Ac Sepsis Rflx Plasma Lactic Acid Michael (0.7-2.0) mmol/L Calcium (8.4-10.2) mg/dL Total Bilirubin (0.2-1.3) mg/dL AST (17-59) U/L ALT (4-49) U/L Alkaline Phosphatase (38-126) U/L Creatine Kinase (55-170) U/L Troponin I (0.000-0.034) ng/mL Total Protein (6.3-8.2) g/dL Albumin (3.5-5.0) g/dL Lipase (23-300) U/L Urine Color Urine Appearance (Clear) Urine pH (5.0-8.0) Ur Specific [place] (1.001-1.035) Urine Protein (Negative) Urine Glucose (UA) (Negative) Urine Ketones (Negative) Urine Blood (Negative) Urine Nitrite (Negative) Urine Bilirubin (Negative) Urine Urobilinogen (<2.0) mg/dL Ur Leukocyte Esterase (Negative) Urine RBC (0-5) /hpf Urine WBC (0-5) /hpf Urine Bacteria (None) /hpf Hyaline Casts (0-2) /lpf Granular Casts (0) /lpf Urine Mucus (None) /hpf 08/28/24 08/28/24 08/28/24 Range/Units 11:19 11:19 11:19 WBC (3.8-10.6) k/uL RBC (4.30-5.90) m/uL Hgb (13.0-17.5) gm/dL Hct (39.0-53.0) % MCV (80.0-100.0) fL MCH (25.0-35.0) pg MCHC (31.0-37.0) g/dL RDW (11.5-15.5) % Plt Count (150-450) k/uL MPV Neutrophils % (Manual) % Band Neuts % (Manual) % Lymphocytes % (Manual) % Monocytes % (Manual) % Eosinophils % (Manual) % Metamyelocytes % % Myelocytes % % Promyelocytes % % Neutrophils # (Manual) (1.3-7.7) k/uL Lymphocytes # (Manual) (1.0-4.8) k/uL Monocytes # (Manual) (0-1.0) k/uL Eosinophils # (Manual) (0-0.7) k/uL Metamyelocytes # (Man) (0) k/uL Myelocytes # (Manual) (0) k/uL Promyelocytes # (Man) (0) k/uL Nucleated RBCs (0-0) /100 WBC Manual Slide Review Hypochromasia Poikilocytosis (manual Tear Drop Cells Rouleaux PT (10.0-12.5) sec INR (<1.2) APTT (22.0-30.0) sec Sodium 127 L (137-145) mmol/L Potassium 4.8 (3.5-5.1) mmol/L Chloride 94 L (98-107) mmol/L Carbon Dioxide 13 L (22-30) mmol/L Anion Gap 20 mmol/L BUN 49 H (9-20) mg/dL Creatinine 2.19 H (0.66-1.25) mg/dL Est GFR (CKD-EPI)AfAm 34 (>60 ml/min/1.73 sqM) Est GFR (CKD-EPI)NonAf 30 (>60 ml/min/1.73 sqM) Glucose 54 L (74-99) mg/dL POC Glucose (mg/dL) (70-110) mg/dL POC Glu Manager Therapy ID Lactic Ac Sepsis Rflx Plasma Lactic Acid Michael 11.4 H* (0.7-2.0) mmol/L Calcium 9.3 (8.4-10.2) mg/dL Total Bilirubin 2.1 H (0.2-1.3) mg/dL AST 91 H (17-59) U/L ALT 39 (4-49) U/L Alkaline Phosphatase 365 H (38-126) U/L Creatine Kinase (55-170) U/L Troponin I <0.012 (0.000-0.034) ng/mL Total Protein 7.1 (6.3-8.2) g/dL Albumin 2.2 L (3.5-5.0) g/dL Lipase (23-300) U/L Urine Color Urine Appearance (Clear) Urine pH (5.0-8.0) Ur Specific [place] (1.001-1.035) Urine Protein (Negative) Urine Glucose (UA) (Negative) Urine Ketones (Negative) Urine Blood (Negative) Urine Nitrite (Negative) Urine Bilirubin (Negative) Urine Urobilinogen (<2.0) mg/dL Ur Leukocyte Esterase (Negative) Urine RBC (0-5) /hpf Urine WBC (0-5) /hpf Urine Bacteria (None) /hpf Hyaline Casts (0-2) /lpf Granular Casts (0) /lpf Urine Mucus (None) /hpf 08/28/24 08/28/24 08/28/24 Range/Units 11:19 11:19 12:11 WBC (3.8-10.6) k/uL RBC (4.30-5.90) m/uL Hgb (13.0-17.5) gm/dL Hct (39.0-53.0) % MCV (80.0-100.0) fL MCH (25.0-35.0) pg MCHC (31.0-37.0) g/dL RDW (11.5-15.5) % Plt Count (150-450) k/uL MPV Neutrophils % (Manual) % Band Neuts % (Manual) % Lymphocytes % (Manual) % Monocytes % (Manual) % Eosinophils % (Manual) % Metamyelocytes % % Myelocytes % % Promyelocytes % % Neutrophils # (Manual) (1.3-7.7) k/uL Lymphocytes # (Manual) (1.0-4.8) k/uL Monocytes # (Manual) (0-1.0) k/uL Eosinophils # (Manual) (0-0.7) k/uL Metamyelocytes # (Man) (0) k/uL Myelocytes # (Manual) (0) k/uL Promyelocytes # (Man) (0) k/uL Nucleated RBCs (0-0) /100 WBC Manual Slide Review Hypochromasia Poikilocytosis (manual Tear Drop Cells Rouleaux PT (10.0-12.5) sec INR (<1.2) APTT (22.0-30.0) sec Sodium (137-145) mmol/L Potassium (3.5-5.1) mmol/L Chloride (98-107) mmol/L Carbon Dioxide (22-30) mmol/L Anion Gap mmol/L BUN (9-20) mg/dL Creatinine (0.66-1.25) mg/dL Est GFR (CKD-EPI)AfAm (>60 ml/min/1.73 sqM) Est GFR (CKD-EPI)NonAf (>60 ml/min/1.73 sqM) Glucose (74-99) mg/dL POC Glucose (mg/dL) 74 (70-110) mg/dL POC Glu Manager Therapy ID Soledad Moser Lactic Ac Sepsis Rflx Plasma Lactic Acid Michael (0.7-2.0) mmol/L Calcium (8.4-10.2) mg/dL Total Bilirubin (0.2-1.3) mg/dL AST (17-59) U/L ALT (4-49) U/L Alkaline Phosphatase (38-126) U/L Creatine Kinase 105 (55-170) U/L Troponin I (0.000-0.034) ng/mL Total Protein (6.3-8.2) g/dL Albumin (3.5-5.0) g/dL Lipase <10 L (23-300) U/L Urine Color Urine Appearance (Clear) Urine pH (5.0-8.0) Ur Specific [place] (1.001-1.035) Urine Protein (Negative) Urine Glucose (UA) (Negative) Urine Ketones (Negative) Urine Blood (Negative) Urine Nitrite (Negative) Urine Bilirubin (Negative) Urine Urobilinogen (<2.0) mg/dL Ur Leukocyte Esterase (Negative) Urine RBC (0-5) /hpf Urine WBC (0-5) /hpf Urine Bacteria (None) /hpf Hyaline Casts (0-2) /lpf Granular Casts (0) /lpf Urine Mucus (None) /hpf 08/28/24 08/28/24 08/28/24 Range/Units 12:35 12:48 15:03 WBC (3.8-10.6) k/uL RBC (4.30-5.90) m/uL Hgb (13.0-17.5) gm/dL Hct (39.0-53.0) % MCV (80.0-100.0) fL MCH (25.0-35.0) pg MCHC (31.0-37.0) g/dL RDW (11.5-15.5) % Plt Count (150-450) k/uL MPV Neutrophils % (Manual) % Band Neuts % (Manual) % Lymphocytes % (Manual) % Monocytes % (Manual) % Eosinophils % (Manual) % Metamyelocytes % % Myelocytes % % Promyelocytes % % Neutrophils # (Manual) (1.3-7.7) k/uL Lymphocytes # (Manual) (1.0-4.8) k/uL Monocytes # (Manual) (0-1.0) k/uL Eosinophils # (Manual) (0-0.7) k/uL Metamyelocytes # (Man) (0) k/uL Myelocytes # (Manual) (0) k/uL Promyelocytes # (Man) (0) k/uL Nucleated RBCs (0-0) /100 WBC Manual Slide Review Hypochromasia Poikilocytosis (manual Tear Drop Cells Rouleaux PT (10.0-12.5) sec INR (<1.2) APTT (22.0-30.0) sec Sodium (137-145) mmol/L Potassium (3.5-5.1) mmol/L Chloride (98-107) mmol/L Carbon Dioxide (22-30) mmol/L Anion Gap mmol/L BUN (9-20) mg/dL Creatinine (0.66-1.25) mg/dL Est GFR (CKD-EPI)AfAm (>60 ml/min/1.73 sqM) Est GFR (CKD-EPI)NonAf (>60 ml/min/1.73 sqM) Glucose (74-99) mg/dL POC Glucose (mg/dL) (70-110) mg/dL POC Glu Manager Therapy ID Lactic Ac Sepsis Rflx Y Plasma Lactic Acid Michael 8.9 H* (0.7-2.0) mmol/L Calcium (8.4-10.2) mg/dL Total Bilirubin (0.2-1.3) mg/dL AST (17-59) U/L ALT (4-49) U/L Alkaline Phosphatase (38-126) U/L Creatine Kinase (55-170) U/L Troponin I (0.000-0.034) ng/mL Total Protein (6.3-8.2) g/dL Albumin (3.5-5.0) g/dL Lipase (23-300) U/L Urine Color Dark Brown Urine Appearance Cloudy (Clear) Urine pH 5.5 (5.0-8.0) Ur Specific [place] 1.024 (1.001-1.035) Urine Protein 1+ H (Negative) Urine Glucose (UA) Negative (Negative) Urine Ketones Negative (Negative) Urine Blood Negative (Negative) Urine Nitrite Negative (Negative) Urine Bilirubin 1+ H (Negative) Urine Urobilinogen 6.0 (<2.0) mg/dL Ur Leukocyte Esterase Negative (Negative) Urine RBC 2 (0-5) /hpf Urine WBC 2 (0-5) /hpf Urine Bacteria Rare H (None) /hpf Hyaline Casts 14 H (0-2) /lpf Granular Casts 4 (0) /lpf Urine Mucus Rare H (None) /hpf 08/28/ Range/Units 15:43 WBC (3.8-10.6) k/uL RBC (4.30-5.90) m/uL Hgb (13.0-17.5) gm/dL Hct (39.0-53.0) % MCV (80.0-100.0) fL MCH (25.0-35.0) pg MCHC (31.0-37.0) g/dL RDW (11.5-15.5) % Plt Count (150-450) k/uL MPV Neutrophils % (Manual) % Band Neuts % (Manual) % Lymphocytes % (Manual) % Monocytes % (Manual) % Eosinophils % (Manual) % Metamyelocytes % % Myelocytes % % Promyelocytes % % Neutrophils # (Manual) (1.3-7.7) k/uL Lymphocytes # (Manual) (1.0-4.8) k/uL Monocytes # (Manual) (0-1.0) k/uL Eosinophils # (Manual) (0-0.7) k/uL Metamyelocytes # (Man) (0) k/uL Myelocytes # (Manual) (0) k/uL Promyelocytes # (Man) (0) k/uL Nucleated RBCs (0-0) /100 WBC Manual Slide Review Hypochromasia Poikilocytosis (manual Tear Drop Cells Rouleaux PT (10.0-12.5) sec INR (<1.2) APTT (22.0-30.0) sec Sodium (137-145) mmol/L Potassium (3.5-5.1) mmol/L Chloride (98-107) mmol/L Carbon Dioxide (22-30) mmol/L Anion Gap mmol/L BUN (9-20) mg/dL Creatinine (0.66-1.25) mg/dL Est GFR (CKD-EPI)AfAm (>60 ml/min/1.73 sqM) Est GFR (CKD-EPI)NonAf (>60 ml/min/1.73 sqM) Glucose (74-99) mg/dL POC Glucose (mg/dL) (70-110) mg/dL POC Glu Manager Therapy ID Lactic Ac Sepsis Rflx Y Plasma Lactic Acid Michael (0.7-2.0) mmol/L Calcium (8.4-10.2) mg/dL Total Bilirubin (0.2-1.3) mg/dL AST (17-59) U/L ALT (4-49) U/L Alkaline Phosphatase (38-126) U/L Creatine Kinase (55-170) U/L Troponin I (0.000-0.034) ng/mL Total Protein (6.3-8.2) g/dL Albumin (3.5-5.0) g/dL Lipase (23-300) U/L Urine Color Urine Appearance (Clear) Urine pH (5.0-8.0) Ur Specific [place] (1.001-1.035) Urine Protein (Negative) Urine Glucose (UA) (Negative) Urine Ketones (Negative) Urine Blood (Negative) Urine Nitrite (Negative) Urine Bilirubin (Negative) Urine Urobilinogen (<2.0) mg/dL Ur Leukocyte Esterase (Negative) Urine RBC (0-5) /hpf Urine WBC (0-5) /hpf Urine Bacteria (None) /hpf Hyaline Casts (0-2) /lpf Granular Casts (0) /lpf Urine Mucus (None) /hpf Disposition Clinical Impression: Weakness, Altered mental status, Leukocytosis Disposition: ADMITTED IP TO THIS [facility] Condition: Poor Is patient prescribed a controlled substance at d/c from ED?: No
[2024-08-28] MEDS: DEXTROSE 5%-0.9% NACL 1,000 ML IV SCH (11:46)
[2024-08-28 11:53] LABS: HCT 34.9 % (39.0-53.0); HGB 11.7 gm/dL (13.0-17.5); Hypochromasia Slight; MCH 32.5 pg (25.0-35.0); MCHC 33.4 g/dL (31.0-37.0); MCV 97.3 fL (80.0-100.0); Mean Platelet Volume 12.5; RBC 3.58 m/uL (4.30-5.90); RDW 13.9 % (11.5-15.5)
[2024-08-28 11:55] LABS: AST 91 U/L (17-59); African American GFR (CKD) 34 (>60 ml/min/1.73 sqM); Albumin 2.2 g/dL (3.5-5.0); Alkaline Phosphatase 365 U/L (38-126); Anion Gap 20 mmol/L; Blood Urea Nitrogen 49 mg/dL (9-20); Calcium 9.3 mg/dL (8.4-10.2); Carbon Dioxide 13 mmol/L (22-30); Chloride 94 mmol/L (98-107); Glucose 54 mg/dL (74-99); Non-African American GFR(CKD) 30 (>60 ml/min/1.73 sqM); Potassium 4.8 mmol/L (3.5-5.1); Sodium 127 mmol/L (137-145); Total Bilirubin 2.1 mg/dL (0.2-1.3); Total Protein 7.1 g/dL (6.3-8.2)
[2024-08-28 12:02] LABS: ALT 39 U/L (4-49)
--- NOTE | 2024-08-28 12:13 | CT ---
EXAMINATION TYPE: CT brain wo con DATE OF EXAM: 08/28/2024 11:49 AM COMPARISON: None. CLINICAL INDICATION: Male, 69 years old with history of weakness, Weakness TECHNIQUE: CT of the brain is performed utilizing 3 mm thick sections through the posterior fossa and 3 mm thick sections through the remaining calvarium. Study is performed within 24 hours of arrival to the hospital. Contrast used: mL of , (none if empty) CT DLP: 1315 mGycm, Automated exposure control for dose reduction was used. FINDINGS: No abnormal hyperdensity is present to suggest an acute intracranial hemorrhage. No mass lesion is evident. Physiologic basal ganglion calcifications present. No acute infarcts are evident. Some mild periventricular white matter hypodensity may be present, lik devyn on the basis of chronic white matter ischemic changes. Ventricles and sulci are appropriate for the patient age. Paranasal sinuses and mastoid air cells within the [id number] are clear. IMPRESSION: 1. No acute intracranial process. Follow up MRI can be performed as clinically indicated. 2. Mild periventricular white matter ischemic changes. [facility], , 08/28/2024 12:10 PM
--- NOTE | 2024-08-28 12:13 | XR ---
EXAMINATION TYPE: XR chest 2V DATE OF EXAM: 08/28/2024 11:46 AM COMPARISON: CTA chest January 25, 2024 CLINICAL INDICATION: Male, 69 years old with history of Weakness, TECHNIQUE: Frontal and lateral views of the chest are obtained. FINDINGS: There is background emphysematous change redemonstrated. There is bilateral perihilar odalis bronchial wall thickening. No suspicious peripheral focal airspace opacity. No pleural effusion or pn eumothorax seen bilaterally. The cardiac silhouette size remains within normal limits. The osseous structures are intact. IMPRESSION: Chronic changes without acute peripheral pulmonary infiltrate. [facility], , 08/28/2024 12:11 PM
[2024-08-28 12:14] LABS: Glucose,Whole Blood 74 mg/dL (70-110)
[2024-08-28 12:50] LABS: INR 4.1 (<1.2); Partial Thromboplastin Time 35.2 sec (22.0-30.0); Prothrombin Time 40.4 sec (10.0-12.5)
[2024-08-28] MEDS: SODIUM CHLORIDE 0.9% 1,000 ML IV ONE (13:00)
[2024-08-28 13:19] LABS: Appearance,Urine Cloudy (Clear); Bacteria,Urine Rare /hpf; Bilirubin,Urine 1+ (Negative); Blood,Urine Negative (Negative); Color,Urine Dark Brown; Glucose,Urine (UA) Negative (Negative); Granular Casts,Urine 4 /lpf (0); Hyaline Casts,Urine 14 /lpf (0-2); Ketones,Urine Negative (Negative); Leukocyte Esterase,Urine Negative (Negative); Mucus,Urine Rare /hpf; Nitrite,Urine Negative (Negative); PH, Urine 5.5 (5.0-8.0); Protein,Urine 1+ (Negative); RBC,Urine 2 /hpf (0-5); Specific Gravity,Urine 1.024 (1.001-1.035); WBC,Urine 2 /hpf (0-5)
[2024-08-28] MEDS: MORPHINE SULFATE 2 MG/ML SYRINGE IVP ONE (13:30)
[2024-08-28 13:33] LABS: Platelet Count 81 k/uL (150-450)
[2024-08-28 13:39] LABS: Band Neutrophils % 11 %; Metamyelocytes % 4 %; Myelocytes % 2 %; Neutrophils % (M) 44 %; Nucleated Red Blood Cells 9 /100 WBC (0-0); Promyelocytes % 1 %; Total Cells Counted 200
[2024-08-28 13:40] LABS: Eosinophils # (M) 20.96 k/uL (0-0.7); Lymphocytes # (M) 11.03 k/uL (1.0-4.8); Metamyelocytes # (M) 4.41 k/uL (0); Monocytes # (M) 13.24 k/uL (0-1.0); Myelocytes # (M) 2.21 k/uL (0); WBC 110.3 k/uL (3.8-10.6)
[2024-08-28 13:47] LABS: Poikilocytosis (M) Present
[2024-08-28 13:48] LABS: Rouleaux Present; Tear Drop Cells Present
--- NOTE | 2024-08-28 14:50 | CT ---
EXAMINATION TYPE: CT abdomen pelvis wo con DATE OF EXAM: 08/28/2024 COMPARISON: 01/25/2024 CLINICAL INDICATION: Male, 69 years old with history of abd pain; PHH, abd pain TECHNIQUE: CT scan of the abdomen and pelvis is performed without oral or IV contrast. CT DLP: [address] CTDI: mGy Automated exposure control for dose reduction was used. FINDINGS: Within the limitations of a non-contrast study, the following observations are made. Exam is somewhat limited by breathing motion. There is a questionable 4.3 cm right hilar mass with sc attered groundglass opacities in the right lung. CT of chest is recommended for further evaluation. M alignancy not excluded. There is a moderate to large hiatal hernia. The gallbladder is mildly distended but there is no wall thickening, pericholecystic fluid or gallsto ne. There is no biliary ductal dilatation. There is an interval development of moderate hepatomegaly and moderate splenomegaly. Pancreas and adrenal glands are unremarkable. There are no renal calcifications or hydronephrosis. The caliber of the abdominal aorta is normal and there is no retroperitoneal adenopathy or hemorrhage . The bowel loops are normal in caliber is no evidence of obstruction. No inflammatory changes are iden tified in the mesentery. Again note is made of a lipoma in the descending duodenum. There is a small amount of free fluid within the abdomen and within the cul-de-sac and the pelvis. There is mild prostatic hypertrophy. The urinary bladder wall is diffusely thickened either secondary to nondistention or actual diffuse wall thickening which could indicate chronic bladder outlet obstr uction. There is no pelvic abscess or adenopathy. There is a stable mild compression fracture of the superior endplate of L1 and a stable moderate supe rior endplate compression fracture of L2 . Impression: 1. Questionable right hilar lung mass and groundglass opacities in the right lung. CT thorax is kandace mmended to rule out lung malignancy. 2. Interval development of moderate hepatomegaly and splenomegaly. 3. Small ascites. 4. Stable compression fractures in the upper lumbar spine. 5. Moderate hiatal hernia. 6. Questionable diffuse urinary bladder wall thickening as described above. [facility], , 08/28/2024 2:48 PM
[2024-08-28] MEDS: LORazepam 2 MG/ML INJ IV STA (17:14)
[2024-08-28] MEDS ORDERED: NALOXONE 0.4 MG/ML 1 ML VIAL IV PRN (18:01)
[2024-08-28 18:04] LABS: Magnesium 2.1 mg/dL (1.6-2.3); Uric Acid 12.9 mg/dL (3.5-8.5)
[2024-08-28] MEDS: RASBURICASE 6 MG in SODIUM CHLORIDE 0.9% 46 ML IV ONE (19:00)
[2024-08-28 19:22] LABS: Glucose,Whole Blood 47 mg/dL (70-110)
[2024-08-28 19:23] LABS: Glucose,Whole Blood 46 mg/dL (70-110)
[2024-08-28 20:25] LABS: Glucose,Whole Blood 95 mg/dL (70-110)
[2024-08-28] MEDS: HYDROXYUREA 500 MG CAP PO SCH (21:07)
[2024-08-28 22:07] LABS: AST 56 U/L (17-59); African American GFR (CKD) 31 (>60 ml/min/1.73 sqM); Albumin 2.1 g/dL (3.5-5.0); Alkaline Phosphatase 327 U/L (38-126); Anion Gap 15 mmol/L; Blood Urea Nitrogen 57 mg/dL (9-20); Calcium 8.8 mg/dL (8.4-10.2); Carbon Dioxide 17 mmol/L (22-30); Chloride 97 mmol/L (98-107); Glucose 76 mg/dL (74-99); Non-African American GFR(CKD) 26 (>60 ml/min/1.73 sqM); Phosphorus 3.8 mg/dL (2.5-4.5); Potassium 4.8 mmol/L (3.5-5.1); Sodium 129 mmol/L (137-145); Total Bilirubin 2.1 mg/dL (0.2-1.3); Total Protein 6.9 g/dL (6.3-8.2); Uric Acid 11.3 mg/dL (3.5-8.5)
[2024-08-28 22:14] LABS: ALT 37 U/L (4-49)
[2024-08-28] MEDS: MORPHINE SULFATE 4 MG/ML SYRINGE IV PRN (22:39)
[2024-08-29] MEDS: ACETAMINOPHEN SUPPOSITORY 650 MG SUPP RECTAL STA (01:26)
[2024-08-29 01:35] LABS: Glucose,Whole Blood 71 mg/dL (70-110)
[2024-08-29 03:42] LABS: HCT 33.1 % (39.0-53.0); HGB 10.7 gm/dL (13.0-17.5); Hypochromasia Slight; MCH 31.2 pg (25.0-35.0); MCHC 32.3 g/dL (31.0-37.0); MCV 96.5 fL (80.0-100.0); Mean Platelet Volume 11.8; RBC 3.43 m/uL (4.30-5.90); RDW 14.2 % (11.5-15.5)
[2024-08-29 04:03] LABS: AST 61 U/L (17-59); Alkaline Phosphatase 345 U/L (38-126); Anion Gap 18 mmol/L; Blood Urea Nitrogen 61 mg/dL (9-20); Calcium 9.1 mg/dL (8.4-10.2); Carbon Dioxide 13 mmol/L (22-30); Chloride 99 mmol/L (98-107); Glucose 58 mg/dL (74-99); Phosphorus 3.5 mg/dL (2.5-4.5); Potassium 4.8 mmol/L (3.5-5.1); Sodium 130 mmol/L (137-145); Total Bilirubin 2.1 mg/dL (0.2-1.3); Total Protein 7.1 g/dL (6.3-8.2); Uric Acid 10.1 mg/dL (3.5-8.5)
[2024-08-29 04:09] LABS: African American GFR (CKD) 33 (>60 ml/min/1.73 sqM); Non-African American GFR(CKD) 28 (>60 ml/min/1.73 sqM)
[2024-08-29 04:10] LABS: Glucose,Whole Blood 55 mg/dL (70-110)
[2024-08-29 04:13] LABS: ALT 38 U/L (4-49)
[2024-08-29] MEDS: DEXTROSE 50% SYRINGE 50 ML IVP PRN (04:14)
[2024-08-29 04:38] LABS: Glucose,Whole Blood 132 mg/dL (70-110)
[2024-08-29 04:39] LABS: Platelet Count 75 k/uL (150-450)
[2024-08-29] MEDS: SODIUM CHLORIDE 0.9% 1,000 ML IV ONE ×4 (05:42→18:53)
[2024-08-29 06:08] LABS: Band Neutrophils % 10 %; Metamyelocytes % 2 %; Myelocytes % 1 %; Neutrophils % (M) 48 %; Nucleated Red Blood Cells 12 /100 WBC (0-0); Total Cells Counted 200
[2024-08-29 06:12] LABS: Eosinophils # (M) 26.96 k/uL (0-0.7); Metamyelocytes # (M) 1.93 k/uL (0); Monocytes # (M) 4.82 k/uL (0-1.0); Myelocytes # (M) 0.96 k/uL (0); WBC 96.3 k/uL (3.8-10.6)
[2024-08-29 06:16] LABS: Toxic Vacuolation Present
[2024-08-29 06:24] LABS: Rouleaux Present
[2024-08-29 06:43] LABS: Glucose,Whole Blood 97 mg/dL (70-110)
[2024-08-29 06:55] LABS: Influenza A Not Detected (Not Detectd); Influenza B Not Detected (Not Detectd); RSV Not Detected (Not Detectd)
[2024-08-29] MEDS: DEXTROSE 5% IN WATER 1,000 ML with SODIUM BICARB (1 MEQ/ML) 150 ML IV SCH (07:20)
--- NOTE | 2024-08-29 07:52 | P.CNPUL ---
History of Present Illness Consult date: 08/29/24 Requesting physician: Pau Smith Reason for consult: other (Sepsis) Chief complaint: Altered mental status, febrile illness History of present illness: Critical care consult placed following rapid response that was called early this morning in the emergency department. Patient was hypotensive, tachycardic, tachypneic, febrile. Sepsis workup is underway. Patient is a 69-year-old male with past medical history significant for lymphoma, congestive heart failure, ventral hernia repair, GERD, among other things. Patient originally brought in for fever of unknown origin and AMS. He cannot provide information for HPI, and family are not present. Workup in the emergency department including including a CT of the brain unremarkable for any acute intracranial process. CT of the abdomen/pelvis which showed a questionable right hilar lung mass and groundglass opacity in the right lung. Development of moderate hepatosplenomegaly, compression fractures noted on lumbar spine, reportedly stable. Moderate hiatal hernia. Questionable use urinary bladder wall thickening. Chest x-ray showing a prominent right hilum. No other acute cardiopulmonary process noted. CBC with a WBC count of 96.3, hemoglobin 10.7, platelets 75. CMP: Sodium 130, potassium 4.8, chloride 99, serum bicarb 13, anion gap 18, BUN 61, creatinine 2.29, glucose 58. AST 61, ALT 38, ALP 345. Total bili 2.1. Uric acid level 10.1. Lactic was as high as 11.4, and remains high most recently 7.8. Patient was febrile with a Tmax of 100.4 F. Viral screen negative for influenza RSV, COVID. Patient did receive a one-time dose of Rocephin. Urinalysis unremarkable for infection. Blood cultures are pending. I am currently evaluating this patient in the emergency department room 21. Obtunded, occasionally crying out. Does not follow any commands. Blood pressure 76/57 mmHg. Remains tachycardic with a rate of 133 bpm. Patient has already received 2 L fluid bolus. D5 W with normal saline is infusing at 125 mL/h. He is receiving an additional 1 L normal saline bolus. May require vasopressor support. Recommending transfer to the intensive care unit. Review of Systems ROS unobtainable: due to mental status Past Medical History Past Medical History: Cancer, GERD/Reflux, Hearing Disorder / Deafness Additional Past Medical History / Comment(s): Stomach pain and nausea daily around 2-3 am. Hx Lymphoma 2021. Nausea, vomiting symptoms since 03/26. Hard of hearing. History of Any Multi-Drug Resistant Organisms: None Reported Past Surgical History: Hernia Repair Additional Past Surgical History / Comment(s): EGD/colonoscopy, hemorrhoidectomy, mediport to right side, hiatal hernia repair. Past Anesthesia/Blood Transfusion Reactions: No Reported Reaction Past Psychological History: No Psychological Hx Reported Smoking Status: Former smoker Past Alcohol Use History: Occasional Past Drug Use History: Marijuana - Past Family History Sister(s) Family Medical History: Cancer Additional Family Medical History / Comment(s): Unsure of type of cancer but thinks lymphoma. Medications and Allergies Home Medications Medication Instructions Recorded Confirmed Type Prochlorperazine [Compazine] 10 mg PO Q6H PRN 10/27/23 08/28/24 History Acetaminophen Tab [Tylenol Tab] 500 mg PO Q6H PRN 08/28/24 08/28/24 History Famotidine [Pepcid] 20 mg PO BID 08/28/24 08/28/24 History HYDROcodone/APAP 5-325MG [[place] 1 tab PO Q6HR PRN 08/28/24 08/28/24 History 5-325] diphenhydrAMINE [Benadryl] 50 mg PO Q4H 08/28/24 08/28/24 History Allergies Allergy/AdvReac Type Severity Reaction Status Date / Time No Known Allergies Allergy Verified 08/28/24 12:16 Physical Exam Vitals: Vital Signs Temp Pulse Pulse Resp BP BP Pulse Ox 08/29/24 06:00 122 H 20 93/60 95 08/29/24 05:45 116 H 17 94/64 96 08/29/24 05:12 117 H 20 91/60 94 L 08/29/24 04:48 98.9 F 133 H 25 H 76/57 93 L 08/29/24 03:19 98.7 F 124 H 22 111/72 94 L 08/29/24 00:40 100.4 F H 08/28/24 23:54 134 H 20 89/68 90 L 08/28/24 22:33 99.1 F 08/28/24 21:00 124 H 18 96/67 94 L 08/28/24 20:00 116 H 18 96/63 96 08/28/24 19:00 120 H 18 95/67 94 L 08/28/24 18:00 120 H 18 100/66 98 08/28/24 15:37 120 H 18 112/70 97 08/28/24 13:15 122 H 20 132/88 97 08/28/24 10:50 97.7 F 122 H 20 109/75 100 Intake and Output 08/28/24 08/29/24 08/29/24 22:59 06:59 14:59 Other: Voiding Method Diaper # Bowel Movements 1 GENERAL EXAM: Obtunded, occasionally cries out in pain, hypotensive, tachycardic, tachypneic. HEAD: Normocephalic and atraumatic EYES: Normal reaction of pupils, equal size. NOSE: Clear with pink turbinates. THROAT: No erythema or exudates. Dry mucous membranes. NECK: No masses, no JVD. CHEST: No chest wall deformity. LUNGS: Equal air entry with no crackles, wheeze, rhonchi or dullness. On 2 L/min nasal cannula. CVS: S1 and S2 normal with no audible murmur, regular rhythm. No extra heart sounds ABDOMEN: No hepatosplenomegaly, active bowel sounds, no guarding or rigidity. SPINE: No scoliosis or deformity SKIN: No rashes CENTRAL NERVOUS SYSTEM: No focal deficits, tone is normal in all 4 extremities. EXTREMITIES: There is bipedal edema. No clubbing or cyanosis. Peripheral pulses are weak but palpable. Results - Laboratory Findings CBC and BMP: 08/29/24 03:21 08/29/24 03:21 PT/INR, D-dimer PT 40.4 sec (10.0-12.5) H 08/28/24 11:19 INR 4.1 (<1.2) H 08/28/24 11:19 Abnormal lab findings: Abnormal Labs 08/28/24 08/28/24 08/28/24 10:49 11:19 11:19 WBC 110.3 H* RBC 3.58 L Hgb 11.7 L Hct 34.9 L Plt Count 81 L Neutrophils # (Manual) 60.60 H Lymphocytes # (Manual) 11.03 H Monocytes # (Manual) 13.24 H Eosinophils # (Manual) 20.96 H Metamyelocytes # (Man) 4.41 H Myelocytes # (Manual) 2.21 H Promyelocytes # (Man) 1.10 H Nucleated RBCs 9 H PT 40.4 H INR 4.1 H APTT 35.2 H Sodium Chloride Carbon Dioxide BUN Creatinine Glucose POC Glucose (mg/dL) 61 L Plasma Lactic Acid Michael Uric Acid Total Bilirubin AST Alkaline Phosphatase Albumin Lipase Urine Protein Urine Bilirubin Urine Bacteria Hyaline Casts Urine Mucus 08/28/24 08/28/24 08/28/24 11:19 11:19 11:19 WBC RBC Hgb Hct Plt Count Neutrophils # (Manual) Lymphocytes # (Manual) Monocytes # (Manual) Eosinophils # (Manual) Metamyelocytes # (Man) Myelocytes # (Manual) Promyelocytes # (Man) Nucleated RBCs PT INR APTT Sodium 127 L Chloride 94 L Carbon Dioxide 13 L BUN 49 H Creatinine 2.19 H Glucose 54 L POC Glucose (mg/dL) Plasma Lactic Acid Michael 11.4 H* Uric Acid Total Bilirubin 2.1 H AST 91 H Alkaline Phosphatase 365 H Albumin 2.2 L Lipase <10 L Urine Protein Urine Bilirubin Urine Bacteria Hyaline Casts Urine Mucus 08/28/24 08/28/24 08/28/24 12:48 15:03 17:34 WBC RBC Hgb Hct Plt Count Neutrophils # (Manual) Lymphocytes # (Manual) Monocytes # (Manual) Eosinophils # (Manual) Metamyelocytes # (Man) Myelocytes # (Manual) Promyelocytes # (Man) Nucleated RBCs PT INR APTT Sodium Chloride Carbon Dioxide BUN Creatinine Glucose POC Glucose (mg/dL) Plasma Lactic Acid Michael 8.9 H* Uric Acid 12.9 H Total Bilirubin AST Alkaline Phosphatase Albumin Lipase Urine Protein 1+ H Urine Bilirubin 1+ H Urine Bacteria Rare H Hyaline Casts 14 H Urine Mucus Rare H 08/28/24 08/28/24 08/28/24 18:27 19:20 19:21 WBC RBC Hgb Hct Plt Count Neutrophils # (Manual) Lymphocytes # (Manual) Monocytes # (Manual) Eosinophils # (Manual) Metamyelocytes # (Man) Myelocytes # (Manual) Promyelocytes # (Man) Nucleated RBCs PT INR APTT Sodium Chloride Carbon Dioxide BUN Creatinine Glucose POC Glucose (mg/dL) 47 L* 46 L* Plasma Lactic Acid Michael 9.3 H* Uric Acid Total Bilirubin AST Alkaline Phosphatase Albumin Lipase Urine Protein Urine Bilirubin Urine Bacteria Hyaline Casts Urine Mucus 08/28/24 08/28/24 08/29/24 21:43 21:43 00:30 WBC RBC Hgb Hct Plt Count Neutrophils # (Manual) Lymphocytes # (Manual) Monocytes # (Manual) Eosinophils # (Manual) Metamyelocytes # (Man) Myelocytes # (Manual) Promyelocytes # (Man) Nucleated RBCs PT INR APTT Sodium 129 L Chloride 97 L Carbon Dioxide 17 L BUN 57 H Creatinine 2.41 H Glucose POC Glucose (mg/dL) Plasma Lactic Acid Michael 7.7 H* 7.3 H* Uric Acid 11.3 H Total Bilirubin 2.1 H AST Alkaline Phosphatase 327 H Albumin 2.1 L Lipase Urine Protein Urine Bilirubin Urine Bacteria Hyaline Casts Urine Mucus 08/29/24 08/29/24 08/29/24 03:21 03:21 03:21 WBC 96.3 H* RBC 3.43 L Hgb 10.7 L Hct 33.1 L Plt Count 75 L Neutrophils # (Manual) 55.80 H Lymphocytes # (Manual) 7.70 H Monocytes # (Manual) 4.82 H Eosinophils # (Manual) 26.96 H Metamyelocytes # (Man) 1.93 H Myelocytes # (Manual) 0.96 H Promyelocytes # (Man) Nucleated RBCs 12 H PT INR APTT Sodium 130 L Chloride Carbon Dioxide 13 L BUN 61 H Creatinine 2.29 H Glucose 58 L POC Glucose (mg/dL) Plasma Lactic Acid Michael 9.5 H* Uric Acid 10.1 H Total Bilirubin 2.1 H AST 61 H Alkaline Phosphatase 345 H Albumin 2.0 L Lipase Urine Protein Urine Bilirubin Urine Bacteria Hyaline Casts Urine Mucus 08/29/24 08/29/24 04:08 04:36 WBC RBC Hgb Hct Plt Count Neutrophils # (Manual) Lymphocytes # (Manual) Monocytes # (Manual) Eosinophils # (Manual) Metamyelocytes # (Man) Myelocytes # (Manual) Promyelocytes # (Man) Nucleated RBCs PT INR APTT Sodium Chloride Carbon Dioxide BUN Creatinine Glucose POC Glucose (mg/dL) 55 L 132 H Plasma Lactic Acid Michael Uric Acid Total Bilirubin AST Alkaline Phosphatase Albumin Lipase Urine Protein Urine Bilirubin Urine Bacteria Hyaline Casts Urine Mucus - Diagnostic Findings Chest x-ray: image reviewed Assessment and Plan Assessment: Acute febrile illness Hypotension and shock, suspect septic shock Severe anion gap metabolic acidosis and lactic acidosis Acute leukocytosis History of lymphoma Bicytopenia with thrombocytopenia and anemia Hyperuricemia, on rasburicase Acute kidney injury, secondary to hypotension and ATN AMS, suspect toxic metabolic encephalopathy Hypoglycemia Hyponatremia Coagulopathy Hepatosplenomegaly History of heart failure with reduced ejection fraction, most recent echocardiogram from January, estimating a left ventricular ejection fraction of 35 to 40%, without any significant valvular abnormalities reported. History of GERD Moderate hiatel hernia History of ventral hernia repair Compression fractures of the lumbar spine, reportedly stable Plan: Suspect sepsis, without a clear source yet identified Chest xray showing right hilar opacity, questionable right hilar mass per CT of the abdomen and pelvis. Recommend follow-up chest CT without contrast No reported acute intra-abdominal process per abdomen/pelvis CT Urinalysis unremarkable for infection Blood cultures are pending Continue empiric antibiotics Start patient on norepinephrine infusion to maintain MAP of 65 mmHg or greater Start D5W with 3 A of sodium bicarbonate at 125 mL/h Obtain repeat echocardiogram Monitor for hypoglycemia and accuchecks per protocol Oncology is consulted Transfer patient to the intensive care unit once bed available I have personally seen and examined the patient, performed the documentation and the assessment and plan as written. Number of minutes spent on the visit:20 Time with Patient: Greater than 30
[2024-08-29] MEDS: NOREPINEPHRINE 4 MG in SODIUM CHLORIDE 0.9% 250 ML IV SCH (07:58)
[2024-08-29] MEDS ORDERED: VANCOMYCIN IV PER PHARMACY 1 EACH MISC MISCELLANE PRN (07:58)
[2024-08-29] MEDS: VANCOMYCIN 1,250 MG in SODIUM CHLORIDE 0.9% 250 ML IVPB ONE (09:10)
--- NOTE | 2024-08-29 09:40 | P.NPCON ---
History of Present Illness - Reason for Consult acute renal failure - History of Present Illness Reason for consultation: Acute kidney injury History of present is: Patient is a 69-year-old male seen in new consultation for acute kidney injury. Creatinine on admission yesterday was 2.19 and is 2.29 this morning. Creatinine in January 2024 was noted to be 0.5. Patient is resting in bed and is not reliable historian. He is quite lethargic. is present at bedside who provides the history. states the patient was diagnosed with T-cell lymphoma in 2019 and received chemotherapy and was subsequently in remission. Patient has been feeling weak over the last couple of weeks and his oral intake has been poor. According to the his tumor markers were elevated and he is scheduled to see oncology in the near future. He is currently not on any chemotherapy medications. Patient's states she was unable to care for him and brought him to the hospital. Patient was noted to have a fever of as high as 100.[address] of the abdomen and pelvis showed questionable right hilar lung mass and groundglass opacities in the right lung. Hepatomegaly and splenomegaly were also noted. Currently has a Frias catheter which was placed for retention. No history of diabetes or coronary artery disease. White count noted to be elevated at 96.3 this morning. He did receive 3 L of normal saline in the ER and is currently maintained on normal saline at 130 cc an hour. Vital signs are stable. On Levophed. General: No acute distress. Lethargic. Cachectic appearing. HEENT: On nasal cannula. LUNGS: No audible rhonchi or wheezes. HEART: Rate and Rhythm are regular. ABDOMEN: No distention. Soft. EXTREMITITES: No edema. Past Medical History Past Medical History: Cancer, GERD/Reflux, Hearing Disorder / Deafness Additional Past Medical History / Comment(s): Stomach pain and nausea daily around 2-3 am. Hx Lymphoma 2021. Nausea, vomiting symptoms since 03/26. Hard of hearing. History of Any Multi-Drug Resistant Organisms: None Reported Past Surgical History: Hernia Repair Additional Past Surgical History / Comment(s): EGD/colonoscopy, hemorrhoidectomy, mediport to right side, hiatal hernia repair. Past Anesthesia/Blood Transfusion Reactions: No Reported Reaction Past Psychological History: No Psychological Hx Reported Smoking Status: Former smoker Past Alcohol Use History: Occasional Past Drug Use History: Marijuana - Past Family History Sister(s) Family Medical History: Cancer Additional Family Medical History / Comment(s): Unsure of type of cancer but thinks lymphoma. Medications and Allergies Home Medications Medication Instructions Recorded Confirmed Type Prochlorperazine [Compazine] 10 mg PO Q6H PRN 10/27/23 08/28/24 History Acetaminophen Tab [Tylenol Tab] 500 mg PO Q6H PRN 08/28/24 08/28/24 History Famotidine [Pepcid] 20 mg PO BID 08/28/24 08/28/24 History HYDROcodone/APAP 5-325MG [[place] 1 tab PO Q6HR PRN 08/28/24 08/28/24 History 5-325] diphenhydrAMINE [Benadryl] 50 mg PO Q4H 08/28/24 08/28/24 History Allergies Allergy/AdvReac Type Severity Reaction Status Date / Time No Known Allergies Allergy Verified 08/28/24 12:16 Physical Exam Vitals: Vital Signs Temp Pulse Pulse Resp BP BP Pulse Ox 08/29/24 08:00 98.4 F 121 H 18 93/66 97 08/29/24 07:34 97.3 F L 113 H 18 108/67 98 08/29/24 07:27 97.2 F L 08/29/24 07:16 122 H 18 86/62 92 L 08/29/24 06:00 122 H 20 93/60 95 08/29/24 05:45 116 H 17 94/64 96 08/29/24 05:12 117 H 20 91/60 94 L 08/29/24 04:48 98.9 F 133 H 25 H 76/57 93 L 08/29/24 03:19 98.7 F 124 H 22 111/72 94 L 08/29/24 00:40 100.4 F H 08/28/24 23:54 134 H 20 89/68 90 L 08/28/24 22:33 99.1 F 08/28/24 21:00 124 H 18 96/67 94 L 08/28/24 20:00 116 H 18 96/63 96 08/28/24 19:00 120 H 18 95/67 94 L 08/28/24 18:00 120 H 18 100/66 98 08/28/24 15:37 120 H 18 112/70 97 02/25/25 13:15 122 H 20 132/88 97 08/28/24 10:50 97.7 F 122 H 20 109/75 100 Intake and Output 08/28/24 08/29/24 08/29/24 22:59 06:59 14:59 Other: Voiding Method Diaper # Bowel Movements 1 Results - Lab Results Most recent lab results Calcium 9.1 mg/dL (8.4-10.2) 08/29/24 03:21 Phosphorus 3.5 mg/dL (2.5-4.5) 08/29/24 03:21 Magnesium 2.1 mg/dL (1.6-2.3) 08/28/24 17:34 08/29/24 03:21 08/29/24 03:21 Assessment and Plan Plan: Assessment: 1. Acute kidney injury secondary to ATN secondary to septic shock. Questionable tumor lysis syndrome with uric acid 12.9 on admission status post rasburicase. No evidence of hyperkalemia or hyperphosphatemia. Creatinine 0.5 in January 2024. Creatinine peaked at 2.41 this admission and was 2.29 this morning. No hydronephrosis noted on CAT scan. 2. Septic shock on Levophed. 3. Metabolic acidosis secondary to acute kidney injury and IV fluids. 4. 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 Oncology consulted. 5. Hypovolemic hyponatremia improved with normal saline. Plan: Agree with bicarb drip. Wean Levophed. Avoid nephrotoxins. Continue to monitor renal function and urine output. Maintain Frias catheter. Strict I's and O's. Continue to assess daily for need for renal replacement therapy. Thank you for the consultation. I will continue to follow the patient with you during his hospital stay.
[2024-08-29] MEDS: CEFEPIME 1 GM in SODIUM CHLORIDE 0.9% 50 ML IVPB SCH (10:37)
[2024-08-29] MEDS ORDERED: PROCHLORPERAZINE 10 MG TAB PO PRN (10:42)
--- NOTE | 2024-08-29 10:46 | CT ---
EXAMINATION TYPE: CT chest wo con DATE OF EXAM: 08/29/2024 10:20 AM COMPARISON: 01/25/2024 CLINICAL INDICATION: Male, 69 years old with history of questionable right hilar mass of abdominal/pe lvis, Questionable hilar mass of abdominal/pelvic TECHNIQUE: Axial images were obtained at 5 mm thick sections. Reconstructed images are reviewed on [employer] computer in the coronal plane. Contrast used: mL of , (none if empty) Oral contrast used: (none if empty) CT DLP: 372.9 mGycm, Automated exposure control for dose reduction was used. FINDINGS: Portion of the thyroid visualized is normal. Minimal bilateral pleural effusions are present. Some mild adjacent compressive atelectasis may be pr esent. No enlarged mediastinal or hilar adenopathy is evident. The ascending aorta diameter at the level o f the main pulmonary artery is 4.2 cm. The main pulmonary artery diameter at the bifurcation is 3.4 cm. Fullness in the right hilar region appears to be related to pulmonary vessels. Underlying mass is not clearly identified. Findings. Present 01/25/[address] sections are obtained through the upper abdomen. Abdomen is essentially unremarkable. IMPRESSION: 1. Fullness of the right hilar region appears to be related to pulmonary vascularity. Study however i s noncontrast which limits evaluation for underlying soft tissue density. The finding however appears similar to prior study of 2023. [facility], , 08/29/2024 10:44 AM
[2024-08-29 11:48] LABS: Glucose,Whole Blood 56 mg/dL (70-110)
[2024-08-29] MEDS: QUEtiapine 25 MG TAB PO STA (12:16)
[2024-08-29] MEDS: ACETAMINOPHEN IV (For NPO) 1,000 MG in EMPTY BAG 1 BAG IVPB STA (12:41)
[2024-08-29] MEDS: diphenhydrAMINE 50 MG/ML 1 ML VIAL IVP STA (12:52)
[2024-08-29 13:29] LABS: Glucose,Whole Blood 78 mg/dL (70-110)
[2024-08-29 14:42] LABS: Glucose,Whole Blood 60 mg/dL (70-110)
[2024-08-29 15:35] LABS: Glucose,Whole Blood 104 mg/dL (70-110)
--- NOTE | 2024-08-29 16:02 | P.HPIM ---
History of Present Illness H&P Date: 08/29/24 Patient is a 69-year-old male with past medical history significant for T-cell, congestive heart failure, GERD who presented to the ER for altered mental status and fever of unknown origin. Patient's is at the bedside and provides most of the history. states that he had recent hospital admission at [facility] went home but then on Tuesday he was not drinking or eating well. She states that he steadily declined over the weekend and became increasingly confused and had concerns of dehydration. 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 López from [facility]. She states his last chemotherapy session was in [address] showed spleen mets. She states he was endorsing abdominal pain. She denies any nausea, vomiting, or diarrhea. ED documentation reviewed. In the ED patient was treated with 3 L bolus of 0.9% NS and started on Levophed for hypotension. Vitals on admission Temperature 97.7 F, heart rate 122, respiratory rate 20, bl ood pressure 111/75, O2 saturation 100% on room air EKG independently interpreted as sinus tachycardia with rate 117 and QTc of 459 ms CXR shows chronic changes without acute peripheral pulmonary infiltrates CT of abdomen pelvis shows questionable right hilar lung mass and groundglass op acities in the right lung. Small ascites, stable compression fractures in upper lumbar spine, moderate hiatal hernia, diffusely thickened bladder wall Labs on admission show WBCs one 1011.7 platelets 81. PTT 40.4, INR4.1, PTT 35.2. Sodium 129, potassium 4.8, chloride 97, bicarb 17, BUN 57, creatinine 2.41, glucose 76. Lactate 7.7. Uric acid 11.3. ALP 327. UA shows dark brown, cloudy urine. Viral 4 Plex is negative. Review of systems: Pertinent positives and negatives as discussed in HPI, a complete review of systems was performed and all other systems are negative. Allergies: NKDA PCP: Dr. Estrada Social history: Tobacco: none Alcohol: none Recreational drugs: none Travel: none Sick contacts: none Physical examination: Vital signs reviewed General: nontoxic, no distress, appears at stated age Derm: warm, dry, intact Head: atraumatic, normocephalic, symmetric Eyes: anicteric sclera Mouth: no lip lesion, mucus membranes moist Cardiovascular: S1 S2 reg, no murmur Lungs: CTA bilateral, no rhonchi, no rales, no accessory muscle use Abdominal: soft, non-tender to palpation, nondistended Extremities: No cyanosis, clubbing, or pedal edema. Neuro: Alert, Oriented to person, time and place, Gross neurological examination did not reveal any focal deficits. Cranial nerves II to XII grossly intact. Bilateral upper and lower extremity muscle strength intact and sensation intact. Psych: well appearing, appropriate affect Assessment/Plan: 69-year-old male with past medical history significant for T-cell, congestive heart failure, GERD who presented to the ER for altered mental status and fever of unknown origin. Active: Suspected septic shock without known source of infection History of lymphoma, no longer in remission, not on chemotherapy Possible tumor lysis syndrome Metabolic acidosis secondary to NARGIS Continue cefepime and vancomycin Continue Levophed Continue D5 water with sodium bicarb 125 mL/h Follow-up blood cultures Follow-up echocardiogram Follow-up CT chest ICU consulted, awaiting bed Consulted heme-onc Consulted nephrology GERD Continue Protonix 20 mg IV twice daily The patient is admitted with an anticipated more than 2 midnight stay for evaluation of suspected septic shock, possible tumor lysis syndrome CODE STATUS: Full code Discussed with: Patient Anticipated discharge place: Pending clinical course Past Medical History Past Medical History: Cancer, GERD/Reflux, Hearing Disorder / Deafness Additional Past Medical History / Comment(s): Stomach pain and nausea daily around 2-3 am. Hx Lymphoma 2021. Nausea, vomiting symptoms since 03/26. Hard of hearing. History of Any Multi-Drug Resistant Organisms: None Reported Past Surgical History: Hernia Repair Additional Past Surgical History / Comment(s): EGD/colonoscopy, hemorrhoidectomy, mediport to right side, hiatal hernia repair. Past Anesthesia/Blood Transfusion Reactions: No Reported Reaction Past Psychological History: No Psychological Hx Reported Smoking Status: Former smoker Past Alcohol Use History: Occasional Past Drug Use History: Marijuana - Past Family History Sister(s) Family Medical History: Cancer Additional Family Medical History / Comment(s): Unsure of type of cancer but thinks lymphoma. Medications and Allergies Home Medications Medication Instructions Recorded Confirmed Type Prochlorperazine [Compazine] 10 mg PO Q6H PRN 10/27/23 08/28/24 History Acetaminophen Tab [Tylenol Tab] 500 mg PO Q6H PRN 08/28/24 08/28/24 History Famotidine [Pepcid] 20 mg PO BID 08/28/24 08/28/24 History HYDROcodone/APAP 5-325MG [[place] 1 tab PO Q6HR PRN 08/28/24 08/28/24 History 5-325] diphenhydrAMINE [Benadryl] 50 mg PO Q4H 08/28/24 08/28/24 History Allergies Allergy/AdvReac Type Severity Reaction Status Date / Time No Known Allergies Allergy Verified 08/28/24 12:16 Physical Exam Vitals: Vital Signs Temp Pulse Pulse Resp BP BP Pulse Ox 08/29/24 07:34 97.3 F L 113 H 18 108/67 98 08/29/24 07:27 97.2 F L 08/29/24 07:16 122 H 18 86/62 92 L 08/29/24 06:00 122 H 20 93/60 95 08/29/24 05:45 116 H 17 94/64 96 08/29/24 05:12 117 H 20 91/60 94 L 08/29/24 04:48 98.9 F 133 H 25 H 76/57 93 L 08/29/24 03:19 98.7 F 124 H 22 111/72 94 L 08/29/24 00:40 100.4 F H 08/28/24 23:54 134 H 20 89/68 90 L 08/28/24 22:33 99.1 F 08/28/24 21:00 124 H 18 96/67 94 L 08/28/24 20:00 116 H 18 96/63 96 08/28/24 19:00 120 H 18 95/67 94 L 08/28/24 18:00 120 H 18 100/66 98 08/28/24 15:37 120 H 18 112/70 97 08/28/24 13:15 122 H 20 132/88 97 08/28/24 10:50 97.7 F 122 H 20 109/75 100 Intake and Output 08/28/24 08/29/24 08/29/24 22:59 06:59 14:59 Other: Voiding Method Diaper # Bowel Movements 1 Results CBC & Chem 7: 08/29/24 03:21 08/29/24 03:21 Labs: Abnormal Lab Results - Last 24 Hours (Table) 08/28/24 08/28/24 08/28/24 Range/Units 10:49 11:19 11:19 WBC 110.3 H* (3.8-10.6) k/uL RBC 3.58 L (4.30-5.90) m/uL Hgb 11.7 L (13.0-17.5) gm/dL Hct 34.9 L (39.0-53.0) % Plt Count 81 L (150-450) k/uL Neutrophils # (Manual) 60.60 H (1.3-7.7) k/uL Lymphocytes # (Manual) 11.03 H (1.0-4.8) k/uL Monocytes # (Manual) 13.24 H (0-1.0) k/uL Eosinophils # (Manual) 20.96 H (0-0.7) k/uL Metamyelocytes # (Man) 4.41 H (0) k/uL Myelocytes # (Manual) 2.21 H (0) k/uL Promyelocytes # (Man) 1.10 H (0) k/uL Nucleated RBCs 9 H (0-0) /100 WBC PT 40.4 H (10.0-12.5) sec INR 4.1 H (<1.2) APTT 35.2 H (22.0-30.0) sec Sodium (137-145) mmol/L Chloride (98-107) mmol/L Carbon Dioxide (22-30) mmol/L BUN (9-20) mg/dL Creatinine (0.66-1.25) mg/dL Glucose (74-99) mg/dL POC Glucose (mg/dL) 61 L (70-110) mg/dL Plasma Lactic Acid Michael (0.7-2.0) mmol/L Uric Acid (3.5-8.5) mg/dL Total Bilirubin (0.2-1.3) mg/dL AST (17-59) U/L Alkaline Phosphatase (38-126) U/L Albumin (3.5-5.0) g/dL Lipase (23-300) U/L Urine Protein (Negative) Urine Bilirubin (Negative) Urine Bacteria (None) /hpf Hyaline Casts (0-2) /lpf Urine Mucus (None) /hpf 08/28/24 08/28/24 08/28/24 Range/Units 11:19 11:19 11:19 WBC (3.8-10.6) k/uL RBC (4.30-5.90) m/uL Hgb (13.0-17.5) gm/dL Hct (39.0-53.0) % Plt Count (150-450) k/uL Neutrophils # (Manual) (1.3-7.7) k/uL Lymphocytes # (Manual) (1.0-4.8) k/uL Monocytes # (Manual) (0-1.0) k/uL Eosinophils # (Manual) (0-0.7) k/uL Metamyelocytes # (Man) (0) k/uL Myelocytes # (Manual) (0) k/uL Promyelocytes # (Man) (0) k/uL Nucleated RBCs (0-0) /100 WBC PT (10.0-12.5) sec INR (<1.2) APTT (22.0-30.0) sec Sodium 127 L (137-145) mmol/L Chloride 94 L (98-107) mmol/L Carbon Dioxide 13 L (22-30) mmol/L BUN 49 H (9-20) mg/dL Creatinine 2.19 H (0.66-1.25) mg/dL Glucose 54 L (74-99) mg/dL POC Glucose (mg/dL) (70-110) mg/dL Plasma Lactic Acid Michael 11.4 H* (0.7-2.0) mmol/L Uric Acid (3.5-8.5) mg/dL Total Bilirubin 2.1 H (0.2-1.3) mg/dL AST 91 H (17-59) U/L Alkaline Phosphatase 365 H (38-126) U/L Albumin 2.2 L (3.5-5.0) g/dL Lipase <10 L (23-300) U/L Urine Protein (Negative) Urine Bilirubin (Negative) Urine Bacteria (None) /hpf Hyaline Casts (0-2) /lpf Urine Mucus (None) /hpf 08/28/24 08/28/24 08/28/24 Range/Units 12:48 15:03 17:34 WBC (3.8-10.6) k/uL RBC (4.30-5.90) m/uL Hgb (13.0-17.5) gm/dL Hct (39.0-53.0) % Plt Count (150-450) k/uL Neutrophils # (Manual) (1.3-7.7) k/uL Lymphocytes # (Manual) (1.0-4.8) k/uL Monocytes # (Manual) (0-1.0) k/uL Eosinophils # (Manual) (0-0.7) k/uL Metamyelocytes # (Man) (0) k/uL Myelocytes # (Manual) (0) k/uL Promyelocytes # (Man) (0) k/uL Nucleated RBCs (0-0) /100 WBC PT (10.0-12.5) sec INR (<1.2) APTT (22.0-30.0) sec Sodium (137-145) mmol/L Chloride (98-107) mmol/L Carbon Dioxide (22-30) mmol/L BUN (9-20) mg/dL Creatinine (0.66-1.25) mg/dL Glucose (74-99) mg/dL POC Glucose (mg/dL) (70-110) mg/dL Plasma Lactic Acid Michael 8.9 H* (0.7-2.0) mmol/L Uric Acid 12.9 H (3.5-8.5) mg/dL Total Bilirubin (0.2-1.3) mg/dL AST (17-59) U/L Alkaline Phosphatase (38-126) U/L Albumin (3.5-5.0) g/dL Lipase (23-300) U/L Urine Protein 1+ H (Negative) Urine Bilirubin 1+ H (Negative) Urine Bacteria Rare H (None) /hpf Hyaline Casts 14 H (0-2) /lpf Urine Mucus Rare H (None) /hpf 08/28/24 08/28/24 08/28/24 Range/Units 18:27 19:20 19:21 WBC (3.8-10.6) k/uL RBC (4.30-5.90) m/uL Hgb (13.0-17.5) gm/dL Hct (39.0-53.0) % Plt Count (150-450) k/uL Neutrophils # (Manual) (1.3-7.7) k/uL Lymphocytes # (Manual) (1.0-4.8) k/uL Monocytes # (Manual) (0-1.0) k/uL Eosinophils # (Manual) (0-0.7) k/uL Metamyelocytes # (Man) (0) k/uL Myelocytes # (Manual) (0) k/uL Promyelocytes # (Man) (0) k/uL Nucleated RBCs (0-0) /100 WBC PT (10.0-12.5) sec INR (<1.2) APTT (22.0-30.0) sec Sodium (137-145) mmol/L Chloride (98-107) mmol/L Carbon Dioxide (22-30) mmol/L BUN (9-20) mg/dL Creatinine (0.66-1.25) mg/dL Glucose (74-99) mg/dL POC Glucose (mg/dL) 47 L* 46 L* (70-110) mg/dL Plasma Lactic Acid Michael 9.3 H* (0.7-2.0) mmol/L Uric Acid (3.5-8.5) mg/dL Total Bilirubin (0.2-1.3) mg/dL AST (17-59) U/L Alkaline Phosphatase (38-126) U/L Albumin (3.5-5.0) g/dL Lipase (23-300) U/L Urine Protein (Negative) Urine Bilirubin (Negative) Urine Bacteria (None) /hpf Hyaline Casts (0-2) /lpf Urine Mucus (None) /hpf 08/28/24 08/28/24 08/29/24 Range/Units 21:43 21:43 00:30 WBC (3.8-10.6) k/uL RBC (4.30-5.90) m/uL Hgb (13.0-17.5) gm/dL Hct (39.0-53.0) % Plt Count (150-450) k/uL Neutrophils # (Manual) (1.3-7.7) k/uL Lymphocytes # (Manual) (1.0-4.8) k/uL Monocytes # (Manual) (0-1.0) k/uL Eosinophils # (Manual) (0-0.7) k/uL Metamyelocytes # (Man) (0) k/uL Myelocytes # (Manual) (0) k/uL Promyelocytes # (Man) (0) k/uL Nucleated RBCs (0-0) /100 WBC PT (10.0-12.5) sec INR (<1.2) APTT (22.0-30.0) sec Sodium 129 L (137-145) mmol/L Chloride 97 L (98-107) mmol/L Carbon Dioxide 17 L (22-30) mmol/L BUN 57 H (9-20) mg/dL Creatinine 2.41 H (0.66-1.25) mg/dL Glucose (74-99) mg/dL POC Glucose (mg/dL) (70-110) mg/dL Plasma Lactic Acid Michael 7.7 H* 7.3 H* (0.7-2.0) mmol/L Uric Acid 11.3 H (3.5-8.5) mg/dL Total Bilirubin 2.1 H (0.2-1.3) mg/dL AST (17-59) U/L Alkaline Phosphatase 327 H (38-126) U/L Albumin 2.1 L (3.5-5.0) g/dL Lipase (23-300) U/L Urine Protein (Negative) Urine Bilirubin (Negative) Urine Bacteria (None) /hpf Hyaline Casts (0-2) /lpf Urine Mucus (None) /hpf 08/29/24 08/29/24 08/29/24 Range/Units 03:21 03:21 03:21 WBC 96.3 H* (3.8-10.6) k/uL RBC 3.43 L (4.30-5.90) m/uL Hgb 10.7 L (13.0-17.5) gm/dL Hct 33.1 L (39.0-53.0) % Plt Count 75 L (150-450) k/uL Neutrophils # (Manual) 55.80 H (1.3-7.7) k/uL Lymphocytes # (Manual) 7.70 H (1.0-4.8) k/uL Monocytes # (Manual) 4.82 H (0-1.0) k/uL Eosinophils # (Manual) 26.96 H (0-0.7) k/uL Metamyelocytes # (Man) 1.93 H (0) k/uL Myelocytes # (Manual) 0.96 H (0) k/uL Promyelocytes # (Man) (0) k/uL Nucleated RBCs 12 H (0-0) /100 WBC PT (10.0-12.5) sec INR (<1.2) APTT (22.0-30.0) sec Sodium 130 L (137-145) mmol/L Chloride (98-107) mmol/L Carbon Dioxide 13 L (22-30) mmol/L BUN 61 H (9-20) mg/dL Creatinine 2.29 H (0.66-1.25) mg/dL Glucose 58 L (74-99) mg/dL POC Glucose (mg/dL) (70-110) mg/dL Plasma Lactic Acid Michael 9.5 H* (0.7-2.0) mmol/L Uric Acid 10.1 H (3.5-8.5) mg/dL Total Bilirubin 2.1 H (0.2-1.3) mg/dL AST 61 H (17-59) U/L Alkaline Phosphatase 345 H (38-126) U/L Albumin 2.0 L (3.5-5.0) g/dL Lipase (23-300) U/L Urine Protein (Negative) Urine Bilirubin (Negative) Urine Bacteria (None) /hpf Hyaline Casts (0-2) /lpf Urine Mucus (None) /hpf 08/29/24 08/29/24 08/29/24 Range/Units 04:08 04:36 06:49 WBC (3.8-10.6) k/uL RBC (4.30-5.90) m/uL Hgb (13.0-17.5) gm/dL Hct (39.0-53.0) % Plt Count (150-450) k/uL Neutrophils # (Manual) (1.3-7.7) k/uL Lymphocytes # (Manual) (1.0-4.8) k/uL Monocytes # (Manual) (0-1.0) k/uL Eosinophils # (Manual) (0-0.7) k/uL Metamyelocytes # (Man) (0) k/uL Myelocytes # (Manual) (0) k/uL Promyelocytes # (Man) (0) k/uL Nucleated RBCs (0-0) /100 WBC PT (10.0-12.5) sec INR (<1.2) APTT (22.0-30.0) sec Sodium (137-145) mmol/L Chloride (98-107) mmol/L Carbon Dioxide (22-30) mmol/L BUN (9-20) mg/dL Creatinine (0.66-1.25) mg/dL Glucose (74-99) mg/dL POC Glucose (mg/dL) 55 L 132 H (70-110) mg/dL Plasma Lactic Acid Michael 7.8 H* (0.7-2.0) mmol/L Uric Acid (3.5-8.5) mg/dL Total Bilirubin (0.2-1.3) mg/dL AST (17-59) U/L Alkaline Phosphatase (38-126) U/L Albumin (3.5-5.0) g/dL Lipase (23-300) U/L Urine Protein (Negative) Urine Bilirubin (Negative) Urine Bacteria (None) /hpf Hyaline Casts (0-2) /lpf Urine Mucus (None) /hpf
[2024-08-29] MEDS: diphenhydrAMINE 50 MG/ML 1 ML VIAL IVP PRN (16:10)
[2024-08-29] MEDS ORDERED: ONDANSETRON 4 MG in SODIUM CHLORIDE 0.9% 50 ML IVPB ONE (16:46)
[2024-08-29 17:05] LABS: Glucose,Whole Blood 100 mg/dL (70-110)
[2024-08-29] MEDS: ONDANSETRON 4 MG/2 ML VIAL IVP ONE (17:11)
[2024-08-29] MEDS: HYDROmorphone 1 MG/ML 1 ML SYRINGE IVP PRN (17:27)
--- NOTE | 2024-08-29 17:53 | P.CONS ---
History of Present Illness - Reason for Consult Consult date: 08/29/24 leukocytosis, hx Lymphoma Requesting physician: Nilsa Cramer - Chief Complaint confusion - History of Present Illness Patient is a 69-year-old male with a significant history of T-cell lymphoma in 2019 and [address] by Dr[address] Talbert at [facility]. Oncology history is limited but patient's states he received 2 cycles of CHOP but due to adverse effects treatment was stopped and then was switched to a different treatment which she is not aware of the name and patient has been in remission for the last 5 years. Patient was recently seen at [facility] and CT AP was obtained showing worsening upper abdominal mesenteric and retroperitoneal lymphadenopathy with splenomegaly and intervally new wedge-shaped hypodensities throughout the spleen. Patient was discharged and was scheduled to follow-up with Dr. Talbert but states patient was becoming increasingly weak and confused and had decreased oral intake at which time he presented to the ER for further evaluation. Upon admit CT brain showed no acute intracranial processes. CT abdomen pelvis showing questionable right hilar lung mass and groundglass opacities in the right lung. Interval development of moderate hepatosplenomegaly. Small ascites. Moderate hiatal hernia. Diffuse urinary b ladder wall thickening. WBC showing leukocytosis with WBC 110.3 with elevated myleocytes, metamyleocytes, promyleocytes, lymphocytes, eosinophils, and neutrophils with no blast ells noted. Hemoglobin 11.7, platelets 81,000. Coags elevated. Lactic acid noted at 11.4, improved to 7.8 with hydration. Repeat CBC today showing WBC 96.3, hemoglobin 10.7, platelets 75,000. Creatinine elevated at 2.41, GFR 26. Uric acid was obtained, elevated at 12.9. Patient was given dose of Elitek yesterday with improvement in uric acid at 10.1 today. Fibrinogen today 88, concerning for possible DIC. 1 dose cryoprecipitate has been ordered. Bilirubin 2.1, AST 91, ALT 39, ALP 365. Pt is hypotensive and has been started on levophed. Blood cultures pending. Tmax 100.4 Review of Systems 10 point ROS is negative except as stated in the HPI Past Medical History Past Medical History: Cancer, GERD/Reflux, Hearing Disorder / Deafness Additional Past Medical History / Comment(s): Stomach pain and nausea daily around 2-3 am. Hx Lymphoma 2021. Nausea, vomiting symptoms since 03/26. Hard of hearing. History of Any Multi-Drug Resistant Organisms: None Reported Past Surgical History: Hernia Repair Additional Past Surgical History / Comment(s): EGD/colonoscopy, hemorrhoidectomy, mediport to right side, hiatal hernia repair. Past Anesthesia/Blood Transfusion Reactions: No Reported Reaction Past Psychological History: No Psychological Hx Reported Smoking Status: Former smoker Past Alcohol Use History: Occasional Past Drug Use History: Marijuana - Past Family History Sister(s) Family Medical History: Cancer Additional Family Medical History / Comment(s): Unsure of type of cancer but thinks lymphoma. Medications and Allergies Home Medications Medication Instructions Recorded Confirmed Type Prochlorperazine [Compazine] 10 mg PO Q6H PRN 10/27/23 08/28/24 History Acetaminophen Tab [Tylenol Tab] 500 mg PO Q6H PRN 08/28/24 08/28/24 History Famotidine [Pepcid] 20 mg PO BID 08/28/24 08/28/24 History HYDROcodone/APAP 5-325MG [[place] 1 tab PO Q6HR PRN 08/28/24 08/28/24 History 5-325] diphenhydrAMINE [Benadryl] 50 mg PO Q4H 08/28/24 08/28/24 History Allergies Allergy/AdvReac Type Severity Reaction Status Date / Time No Known Allergies Allergy Verified 08/28/24 12:16 Physical Exam Vitals: Vital Signs Temp Pulse Pulse Resp BP BP Pulse Ox 08/29/24 11:00 129 H 18 71/51 98 08/29/24 10:00 99.7 F H 121 H 18 87/71 92 L 08/29/24 09:00 115 H 18 97/61 08/29/24 08:00 98.4 F 121 H 18 93/66 97 08/29/24 07:34 97.3 F L 113 H 18 108/67 98 08/29/24 07:27 97.2 F L 08/29/24 07:16 122 H 18 86/62 92 L 08/29/24 06:00 122 H 20 93/60 95 08/29/24 05:45 116 H 17 94/64 96 08/29/24 05:12 117 H 20 91/60 94 L 08/29/24 04:48 98.9 F 133 H 25 H 76/57 93 L 02/26/25 03:19 98.7 F 124 H 22 111/72 94 L 08/29/24 00:40 100.4 F H 08/28/24 23:54 134 H 20 89/68 90 L 08/28/24 22:33 99.1 F 08/28/24 21:00 124 H 18 96/67 94 L 08/28/24 20:00 116 H 18 96/63 96 08/28/24 19:00 120 H 18 95/67 94 L 08/28/24 18:00 120 H 18 100/66 98 08/28/24 15:37 120 H 18 112/70 97 08/28/24 13:15 122 H 20 132/88 97 Intake and Output 08/28/24 08/29/24 08/29/24 22:59 06:59 14:59 Intake Total 30.376 Balance 30.376 Intake: Intake, IV Titration 30.376 Amount Norepinephrine 4 mg In 30.376 Sodium Chloride 0.9% 250 ml @ 0.03 MCG/KG/MIN 8. 399 mls/hr IV .Q24H [facility] Rx#:[id number] Other: Voiding Method Diaper # Bowel Movements 1 - Constitutional General appearance: average body habitus, no acute distress - EENT Eyes: anicteric sclerae, EOMI ENT: hearing grossly normal - Respiratory Respiratory: bilateral: CTA - Cardiovascular tachycardic - Gastrointestinal General gastrointestinal: soft, no tenderness - Integumentary Integumentary: no cyanotic, no jaundiced - Neurologic confused - Musculoskeletal Musculoskeletal: generalized weakness left axilla and right groin LAD Results CBC & Chem 7: 08/29/24 03:21 08/29/24 03:21 Labs: Abnormal Lab Results - Last 24 Hours (Table) 08/28/24 08/28/24 08/28/24 Range/Units 11:19 11:19 11:19 WBC 110.3 H* (3.8-10.6) k/uL RBC 3.58 L (4.30-5.90) m/uL Hgb 11.7 L (13.0-17.5) gm/dL Hct 34.9 L (39.0-53.0) % Plt Count 81 L (150-450) k/uL Neutrophils # (Manual) 60.60 H (1.3-7.7) k/uL Lymphocytes # (Manual) 11.03 H (1.0-4.8) k/uL Monocytes # (Manual) 13.24 H (0-1.0) k/uL Eosinophils # (Manual) 20.96 H (0-0.7) k/uL Metamyelocytes # (Man) 4.41 H (0) k/uL Myelocytes # (Manual) 2.21 H (0) k/uL Promyelocytes # (Man) 1.10 H (0) k/uL Nucleated RBCs 9 H (0-0) /100 WBC PT 40.4 H (10.0-12.5) sec INR 4.1 H (<1.2) APTT 35.2 H (22.0-30.0) sec Fibrinogen (200-500) mg/dL Sodium 127 L (137-145) mmol/L Chloride 94 L (98-107) mmol/L Carbon Dioxide 13 L (22-30) mmol/L BUN 49 H (9-20) mg/dL Creatinine 2.19 H (0.66-1.25) mg/dL Glucose 54 L (74-99) mg/dL POC Glucose (mg/dL) (70-110) mg/dL Plasma Lactic Acid Michael (0.7-2.0) mmol/L Uric Acid (3.5-8.5) mg/dL Total Bilirubin 2.1 H (0.2-1.3) mg/dL AST 91 H (17-59) U/L Alkaline Phosphatase 365 H (38-126) U/L Albumin 2.2 L (3.5-5.0) g/dL Lipase (23-300) U/L Urine Protein (Negative) Urine Bilirubin (Negative) Urine Bacteria (None) /hpf Hyaline Casts (0-2) /lpf Urine Mucus (None) /hpf 08/28/24 08/28/24 08/28/24 Range/Units 11:19 11:19 12:48 WBC (3.8-10.6) k/uL RBC (4.30-5.90) m/uL Hgb (13.0-17.5) gm/dL Hct (39.0-53.0) % Plt Count (150-450) k/uL Neutrophils # (Manual) (1.3-7.7) k/uL Lymphocytes # (Manual) (1.0-4.8) k/uL Monocytes # (Manual) (0-1.0) k/uL Eosinophils # (Manual) (0-0.7) k/uL Metamyelocytes # (Man) (0) k/uL Myelocytes # (Manual) (0) k/uL Promyelocytes # (Man) (0) k/uL Nucleated RBCs (0-0) /100 WBC PT (10.0-12.5) sec INR (<1.2) APTT (22.0-30.0) sec Fibrinogen (200-500) mg/dL Sodium (137-145) mmol/L Chloride (98-107) mmol/L Carbon Dioxide (22-30) mmol/L BUN (9-20) mg/dL Creatinine (0.66-1.25) mg/dL Glucose (74-99) mg/dL POC Glucose (mg/dL) (70-110) mg/dL Plasma Lactic Acid Michael 11.4 H* (0.7-2.0) mmol/L Uric Acid (3.5-8.5) mg/dL Total Bilirubin (0.2-1.3) mg/dL AST (17-59) U/L Alkaline Phosphatase (38-126) U/L Albumin (3.5-5.0) g/dL Lipase <10 L (23-300) U/L Urine Protein 1+ H (Negative) Urine Bilirubin 1+ H (Negative) Urine Bacteria Rare H (None) /hpf Hyaline Casts 14 H (0-2) /lpf Urine Mucus Rare H (None) /hpf 08/28/24 08/28/24 08/28/24 Range/Units 15:03 17:34 18:27 WBC (3.8-10.6) k/uL RBC (4.30-5.90) m/uL Hgb (13.0-17.5) gm/dL Hct (39.0-53.0) % Plt Count (150-450) k/uL Neutrophils # (Manual) (1.3-7.7) k/uL Lymphocytes # (Manual) (1.0-4.8) k/uL Monocytes # (Manual) (0-1.0) k/uL Eosinophils # (Manual) (0-0.7) k/uL Metamyelocytes # (Man) (0) k/uL Myelocytes # (Manual) (0) k/uL Promyelocytes # (Man) (0) k/uL Nucleated RBCs (0-0) /100 WBC PT (10.0-12.5) sec INR (<1.2) APTT (22.0-30.0) sec Fibrinogen (200-500) mg/dL Sodium (137-145) mmol/L Chloride (98-107) mmol/L Carbon Dioxide (22-30) mmol/L BUN (9-20) mg/dL Creatinine (0.66-1.25) mg/dL Glucose (74-99) mg/dL POC Glucose (mg/dL) (70-110) mg/dL Plasma Lactic Acid Michael 8.9 H* 9.3 H* (0.7-2.0) mmol/L Uric Acid 12.9 H (3.5-8.5) mg/dL Total Bilirubin (0.2-1.3) mg/dL AST (17-59) U/L Alkaline Phosphatase (38-126) U/L Albumin (3.5-5.0) g/dL Lipase (23-300) U/L Urine Protein (Negative) Urine Bilirubin (Negative) Urine Bacteria (None) /hpf Hyaline Casts (0-2) /lpf Urine Mucus (None) /hpf 08/28/24 08/28/24 08/28/24 Range/Units 19:20 19:21 21:43 WBC (3.8-10.6) k/uL RBC (4.30-5.90) m/uL Hgb (13.0-17.5) gm/dL Hct (39.0-53.0) % Plt Count (150-450) k/uL Neutrophils # (Manual) (1.3-7.7) k/uL Lymphocytes # (Manual) (1.0-4.8) k/uL Monocytes # (Manual) (0-1.0) k/uL Eosinophils # (Manual) (0-0.7) k/uL Metamyelocytes # (Man) (0) k/uL Myelocytes # (Manual) (0) k/uL Promyelocytes # (Man) (0) k/uL Nucleated RBCs (0-0) /100 WBC PT (10.0-12.5) sec INR (<1.2) APTT (22.0-30.0) sec Fibrinogen (200-500) mg/dL Sodium 129 L (137-145) mmol/L Chloride 97 L (98-107) mmol/L Carbon Dioxide 17 L (22-30) mmol/L BUN 57 H (9-20) mg/dL Creatinine 2.41 H (0.66-1.25) mg/dL Glucose (74-99) mg/dL POC Glucose (mg/dL) 47 L* 46 L* (70-110) mg/dL Plasma Lactic Acid Michael (0.7-2.0) mmol/L Uric Acid 11.3 H (3.5-8.5) mg/dL Total Bilirubin 2.1 H (0.2-1.3) mg/dL AST (17-59) U/L Alkaline Phosphatase 327 H (38-126) U/L Albumin 2.1 L (3.5-5.0) g/dL Lipase (23-300) U/L Urine Protein (Negative) Urine Bilirubin (Negative) Urine Bacteria (None) /hpf Hyaline Casts (0-2) /lpf Urine Mucus (None) /hpf 08/28/24 08/29/24 08/29/24 Range/Units 21:43 00:30 03:21 WBC 96.3 H* (3.8-10.6) k/uL RBC 3.43 L (4.30-5.90) m/uL Hgb 10.7 L (13.0-17.5) gm/dL Hct 33.1 L (39.0-53.0) % Plt Count 75 L (150-450) k/uL Neutrophils # (Manual) 55.80 H (1.3-7.7) k/uL Lymphocytes # (Manual) 7.70 H (1.0-4.8) k/uL Monocytes # (Manual) 4.82 H (0-1.0) k/uL Eosinophils # (Manual) 26.96 H (0-0.7) k/uL Metamyelocytes # (Man) 1.93 H (0) k/uL Myelocytes # (Manual) 0.96 H (0) k/uL Promyelocytes # (Man) (0) k/uL Nucleated RBCs 12 H (0-0) /100 WBC PT (10.0-12.5) sec INR (<1.2) APTT (22.0-30.0) sec Fibrinogen (200-500) mg/dL Sodium (137-145) mmol/L Chloride (98-107) mmol/L Carbon Dioxide (22-30) mmol/L BUN (9-20) mg/dL Creatinine (0.66-1.25) mg/dL Glucose (74-99) mg/dL POC Glucose (mg/dL) (70-110) mg/dL Plasma Lactic Acid Michael 7.7 H* 7.3 H* (0.7-2.0) mmol/L Uric Acid (3.5-8.5) mg/dL Total Bilirubin (0.2-1.3) mg/dL AST (17-59) U/L Alkaline Phosphatase (38-126) U/L Albumin (3.5-5.0) g/dL Lipase (23-300) U/L Urine Protein (Negative) Urine Bilirubin (Negative) Urine Bacteria (None) /hpf Hyaline Casts (0-2) /lpf Urine Mucus (None) /hpf 08/29/24 08/29/24 08/29/24 Range/Units 03:21 03:21 04:08 WBC (3.8-10.6) k/uL RBC (4.30-5.90) m/uL Hgb (13.0-17.5) gm/dL Hct (39.0-53.0) % Plt Count (150-450) k/uL Neutrophils # (Manual) (1.3-7.7) k/uL Lymphocytes # (Manual) (1.0-4.8) k/uL Monocytes # (Manual) (0-1.0) k/uL Eosinophils # (Manual) (0-0.7) k/uL Metamyelocytes # (Man) (0) k/uL Myelocytes # (Manual) (0) k/uL Promyelocytes # (Man) (0) k/uL Nucleated RBCs (0-0) /100 WBC PT (10.0-12.5) sec INR (<1.2) APTT (22.0-30.0) sec Fibrinogen (200-500) mg/dL Sodium 130 L (137-145) mmol/L Chloride (98-107) mmol/L Carbon Dioxide 13 L (22-30) mmol/L BUN 61 H (9-20) mg/dL Creatinine 2.29 H (0.66-1.25) mg/dL Glucose 58 L (74-99) mg/dL POC Glucose (mg/dL) 55 L (70-110) mg/dL Plasma Lactic Acid Michael 9.5 H* (0.7-2.0) mmol/L Uric Acid 10.1 H (3.5-8.5) mg/dL Total Bilirubin 2.1 H (0.2-1.3) mg/dL AST 61 H (17-59) U/L Alkaline Phosphatase 345 H (38-126) U/L Albumin 2.0 L (3.5-5.0) g/dL Lipase (23-300) U/L Urine Protein (Negative) Urine Bilirubin (Negative) Urine Bacteria (None) /hpf Hyaline Casts (0-2) /lpf Urine Mucus (None) /hpf 08/29/24 08/29/24 08/29/24 Range/Units 04:36 06:49 08:36 WBC (3.8-10.6) k/uL RBC (4.30-5.90) m/uL Hgb (13.0-17.5) gm/dL Hct (39.0-53.0) % Plt Count (150-450) k/uL Neutrophils # (Manual) (1.3-7.7) k/uL Lymphocytes # (Manual) (1.0-4.8) k/uL Monocytes # (Manual) (0-1.0) k/uL Eosinophils # (Manual) (0-0.7) k/uL Metamyelocytes # (Man) (0) k/uL Myelocytes # (Manual) (0) k/uL Promyelocytes # (Man) (0) k/uL Nucleated RBCs (0-0) /100 WBC PT (10.0-12.5) sec INR (<1.2) APTT (22.0-30.0) sec Fibrinogen 88 L (200-500) mg/dL Sodium (137-145) mmol/L Chloride (98-107) mmol/L Carbon Dioxide (22-30) mmol/L BUN (9-20) mg/dL Creatinine (0.66-1.25) mg/dL Glucose (74-99) mg/dL POC Glucose (mg/dL) 132 H (70-110) mg/dL Plasma Lactic Acid Michael 7.8 H* (0.7-2.0) mmol/L Uric Acid (3.5-8.5) mg/dL Total Bilirubin (0.2-1.3) mg/dL AST (17-59) U/L Alkaline Phosphatase (38-126) U/L Albumin (3.5-5.0) g/dL Lipase (23-300) U/L Urine Protein (Negative) Urine Bilirubin (Negative) Urine Bacteria (None) /hpf Hyaline Casts (0-2) /lpf Urine Mucus (None) /hpf 08/29/24 Range/Units 09:47 WBC (3.8-10.6) k/uL RBC (4.30-5.90) m/uL Hgb (13.0-17.5) gm/dL Hct (39.0-53.0) % Plt Count (150-450) k/uL Neutrophils # (Manual) (1.3-7.7) k/uL Lymphocytes # (Manual) (1.0-4.8) k/uL Monocytes # (Manual) (0-1.0) k/uL Eosinophils # (Manual) (0-0.7) k/uL Metamyelocytes # (Man) (0) k/uL Myelocytes # (Manual) (0) k/uL Promyelocytes # (Man) (0) k/uL Nucleated RBCs (0-0) /100 WBC PT (10.0-12.5) sec INR (<1.2) APTT (22.0-30.0) sec Fibrinogen (200-500) mg/dL Sodium (137-145) mmol/L Chloride (98-107) mmol/L Carbon Dioxide (22-30) mmol/L BUN (9-20) mg/dL Creatinine (0.66-1.25) mg/dL Glucose (74-99) mg/dL POC Glucose (mg/dL) (70-110) mg/dL Plasma Lactic Acid Michael 6.2 H* (0.7-2.0) mmol/L Uric Acid (3.5-8.5) mg/dL Total Bilirubin (0.2-1.3) mg/dL AST (17-59) U/L Alkaline Phosphatase (38-126) U/L Albumin (3.5-5.0) g/dL Lipase (23-300) U/L Urine Protein (Negative) Urine Bilirubin (Negative) Urine Bacteria (None) /hpf Hyaline Casts (0-2) /lpf Urine Mucus (None) /hpf CT scan - abdomen: report reviewed CT Scan - head: report reviewed CT scan - pelvis: report reviewed Assessment and Plan (1) T-cell lymphoma Current Visit: Yes Status: Acute Priority: High Code(s): C85.90 - NON- HODGKIN LYMPHOMA, UNSPECIFIED, UNSPECIFIED SITE SNOMED Code(s): 807007617 (2) Altered mental status Current Visit: Yes Status: Acute Priority: High Code(s): R41.82 - ALTERED MENTAL STATUS, UNSPECIFIED SNOMED Code(s): 634533636 (3) Leukocytosis Current Visit: Yes Status: Acute Priority: High Code(s): D72.829 - KOSTAS VATED WHITE BLOOD CELL COUNT, UNSPECIFIED SNOMED Code(s): 928939256 (4) Septic shock Current Visit: Yes Status: Acute Priority: High Code(s): A41.9 - SEPSIS, UNSPECIFIED ORGANISM; R65.21 - SEVERE SEPSIS WITH SEPTIC SHOCK SNOMED Code(s): 81917022 (5) Weakness Current Visit: Yes Status: Acute Priority: High Code(s): R53.1 - WEAKNESS SNOMED Code(s): 29389256 (6) Dehydration Current Visit: Yes Status: Acute Priority: High Code(s): E86.0 - DEHYDRAT ION SNOMED Code(s): 76862477 Plan: Confusion, weakness, sepsis: Presented with weakness, confusion and decreased oral intake. Recently discha rged form [facility] and was supposed to f/u with his oncologist for concern of relapse of lymphoma -Lactic on admit 11.4, improved to 7.8. Pt is hypotensive and has been started on levophed. Blood cultures pending. Tmax 100.4. IV abx started. Pending transfer to ICU -ID and pulm following T-cell lymphoma Significant history of T-cell lymphoma in 2019 and [address] by [address] Talbert at [facility]. Oncology history is limited but patient's states he received 2 cycles of CHOP but due to adverse effects treatment was stopped and then was switched to a different regimen which she is not aware of the name and patient has been in remission for the last 5 years. Patient was recently seen a [facility] and CT AP was obtained showing worsening upper abdominal mesenteric and retroperitoneal lymphadenopathy with splenomegaly and intervally new wedge-shaped hypodensities throughout the spleen. Patient was scheduled to follow-up with Dr. Talbert -Upon admit CT abdomen pelvis showing questionable right hilar lung mass and groundglass opacities in the right lung. Interval development of moderate hepatosplenomegaly. Small ascites. Diffuse urinary bladder wall thickening. CT chest ordered -WBC showing leukocytosis with WBC 110.3 with elevated myleocytes, metamyleocytes, promyleocytes, lymphocytes, eosinophils, and neutrophils with no blast cells noted upon reviewing peripheral smear this morning. Hemoglobin 11.7, platelets 81,000. Repeat CBC today showing WBC 96.3, hemoglobin 10.7, platelets 75,000. -Creatinine elevated at 2.41, GFR 26. Uric acid was obtained, elevated at 12.9. Patient was given dose of Elitek yesterday for concern of TLS, with improvement in uric acid at 10.1 today. Nephrology consulted. -Coags elevated, fibrinogen 88, concerning for possible DIC. 1 dose cryoprecipitate has been ordered. Repeat DIC labs in the AM -Concern for relapse of his lymphoma. LAD noted in left axilla and right groin. Once pt more stable will try to obtain biopsy. Pt will likely need to be initiated on inpt chemo once stabilized. Will request records from his oncologis t Dr. Talbert -Flow cytometry, cytogenetics, and FISH ordered Discussed findings, concerns and POC with spouse. She was agreeable to the same. All questions and concerns were addressed attests: I have seen and examined pt, performed H&P, developed impression and plan of care. Discussed with dictator. Agree with documentation, dictated as a scribe.
[2024-08-29] MEDS ORDERED: FAMOTIDINE 20 MG/2 ML VIAL IV SCH (21:00)
[2024-08-29] MEDS ORDERED: FAMOTIDINE 20 MG TAB PO SCH (21:00)
--- NOTE | 2024-08-29 21:39 | P.CONS ---
History of Present Illness - Reason for Consult Consult date: 08/29/24 Sepsis, unknown source Requesting physician: Pau Smith - Chief Complaint Weakness and fever x 1 day - History of Present Illness Patient is a 69-year-old male with a past medical history significant for reflux lymphoma with recent admission at the [facility] with the patient was treated for abdominal pain has been diagnosed with a constipati on CT abdominal pelvis done at that facility shows worsening lymphadenopathy possible splenic infarct and rectal distention patient been brought to this facility concerning for generalized weakness and fever at home. Symptoms started the night before presentation to hospital and the patient was noted to be very weak and confused and did have her cloudy urine at home patient on presentation to hospital was afebrile subsequently did spike a fever of 100.4 F and did have a temperature of 100.9 F this afternoon the patient was tachycardic and also hypotensive requiring fluid and pressor support and admission to the ICU patient was mildly hypoxic currently 4 L nasal cannula oxygen did have significant elevated lactic acid white count of 1.10 repeat is 96.3 predominantly lymphocyte he did have elevated BUN and creatinine lactic acid has been elevated liver enzymes are normal urine has been negative influenza RSV COVID testing has been negative patient did have abdominal pelvis CT question of right perihilar lung mass and groundglass opacity in the right lung moderate hepatosplenomegaly small ascites questionable diffuse urinary bladder wall thickening CT of the chest fullness of the right hilar region appears to be related to pulmonary vasculature with evidence of some atelectasis patient has been started on vancomycin and cefepime infectious disease was consulted concerning for sepsis all information has been obtained from review the chart as the patient was not a very good historian started screaming in pain on minimal touching of his abdomen but no vomiting or diarrhea has been reported Review of Systems Positive points has been mentioned in HPI complete review could not be obtained because of his underlying mental status Past Medical History Past Medical History: Cancer, GERD/Reflux, Hearing Disorder / Deafness Additional Past Medical History / Comment(s): Stomach pain and nausea daily around 2-3 am. Hx Lymphoma 2021. Nausea, vomiting symptoms since 03/26. Hard of hearing. History of Any Multi-Drug Resistant Organisms: None Reported Past Surgical History: Hernia Repair Additional Past Surgical History / Comment(s): EGD/colonoscopy, hemorrhoidectomy, mediport to right side, hiatal hernia repair. Past Anesthesia/Blood Transfusion Reactions: No Reported Reaction Past Psychological History: No Psychological Hx Reported Smoking Status: Former smoker Past Alcohol Use History: Occasional Past Drug Use History: Marijuana - Past Family History Sister(s) Family Medical History: Cancer Additional Family Medical History / Comment(s): Unsure of type of cancer but thinks lymphoma. Father Additional Family Medical History / Comment(s): ETOH, of alcoholism Medications and Allergies Home Medications Medication Instructions Recorded Confirmed Type Prochlorperazine [Compazine] 10 mg PO Q6H PRN 10/27/23 08/28/24 History Acetaminophen Tab [Tylenol Tab] 500 mg PO Q6H PRN 08/28/24 08/28/24 History Famotidine [Pepcid] 20 mg PO BID 08/28/24 08/28/24 History HYDROcodone/APAP 5-325MG [[place] 1 tab PO Q6HR PRN 08/28/24 08/28/24 History 5-325] diphenhydrAMINE [Benadryl] 50 mg PO Q4H 08/28/24 08/28/24 History Allergies Allergy/AdvReac Type Severity Reaction Status Date / Time No Known Allergies Allergy Verified 08/28/24 12:16 Physical Exam Vitals: Vital Signs Temp Pulse Pulse Resp BP BP Pulse Ox 08/29/24 08:00 98.4 F 121 H 18 93/66 97 08/29/24 07:34 97.3 F L 113 H 18 108/67 98 08/29/24 07:27 97.2 F L 08/29/24 07:16 122 H 18 86/62 92 L 08/29/24 06:00 122 H 20 93/60 95 08/29/24 05:45 116 H 17 94/64 96 08/29/24 05:12 117 H 20 91/60 94 L 08/29/24 04:48 98.9 F 133 H 25 H 76/57 93 L 08/29/24 03:19 98.7 F 124 H 22 111/72 94 L 08/29/24 00:40 100.4 F H 08/28/24 23:54 134 H 20 89/68 90 L 08/28/24 22:33 99.1 F 08/28/24 21:00 124 H 18 96/67 94 L 08/28/24 20:00 116 H 18 96/63 96 08/28/24 19:00 120 H 18 95/67 94 L 08/28/24 18:00 120 H 18 100/66 98 08/28/24 15:37 120 H 18 112/70 97 08/28/24 13:15 122 H 20 132/88 97 08/28/24 10:50 97.7 F 122 H 20 109/75 100 Intake and Output 08/28/24 08/29/24 08/29/24 22:59 06:59 14:59 Other: Voiding Method Diaper # Bowel Movements 1 GENERAL DESCRIPTION: Elderly male lying in bed, no distress. No tachypnea or accessory muscle of respiration use. HEENT: Shows Pallor , no scleral icterus. Oral mucous membrane is dry. NECK: Trachea central, no thyromegaly. LUNGS: Unlabored breathing. Decreased breath sound at the base HEART: S1, S2, regular rate and rhythm. No loud murmur ABDOMEN: Soft, tenderness and mild distention EXTREMITIES: No edema of feet. SKIN: No rash, no masses palpable. NEUROLOGICAL: The patient is lethargic orientation cannot determine Results CBC & Chem 7: 08/31/24 05:55 08/31/24 05:55 Labs: Abnormal Lab Results - Last 24 Hours (Table) 08/28/24 08/28/24 08/28/24 Range/Units 10:49 11:19 11:19 WBC 110.3 H* (3.8-10.6) k/uL RBC 3.58 L (4.30-5.90) m/uL Hgb 11.7 L (13.0-17.5) gm/dL Hct 34.9 L (39.0-53.0) % Plt Count 81 L (150-450) k/uL Neutrophils # (Manual) 60.60 H (1.3-7.7) k/uL Lymphocytes # (Manual) 11.03 H (1.0-4.8) k/uL Monocytes # (Manual) 13.24 H (0-1.0) k/uL Eosinophils # (Manual) 20.96 H (0-0.7) k/uL Metamyelocytes # (Man) 4.41 H (0) k/uL Myelocytes # (Manual) 2.21 H (0) k/uL Promyelocytes # (Man) 1.10 H (0) k/uL Nucleated RBCs 9 H (0-0) /100 WBC PT 40.4 H (10.0-12.5) sec INR 4.1 H (<1.2) APTT 35.2 H (22.0-30.0) sec Sodium (137-145) mmol/L Chloride (98-107) mmol/L Carbon Dioxide (22-30) mmol/L BUN (9-20) mg/dL Creatinine (0.66-1.25) mg/dL Glucose (74-99) mg/dL POC Glucose (mg/dL) 61 L (70-110) mg/dL Plasma Lactic Acid Michael (0.7-2.0) mmol/L Uric Acid (3.5-8.5) mg/dL Total Bilirubin (0.2-1.3) mg/dL AST (17-59) U/L Alkaline Phosphatase (38-126) U/L Albumin (3.5-5.0) g/dL Lipase (23-300) U/L Urine Protein (Negative) Urine Bilirubin (Negative) Urine Bacteria (None) /hpf Hyaline Casts (0-2) /lpf Urine Mucus (None) /hpf 08/28/24 08/28/24 08/28/24 Range/Units 11:19 11:19 11:19 WBC (3.8-10.6) k/uL RBC (4.30-5.90) m/uL Hgb (13.0-17.5) gm/dL Hct (39.0-53.0) % Plt Count (150-450) k/uL Neutrophils # (Manual) (1.3-7.7) k/uL Lymphocytes # (Manual) (1.0-4.8) k/uL Monocytes # (Manual) (0-1.0) k/uL Eosinophils # (Manual) (0-0.7) k/uL Metamyelocytes # (Man) (0) k/uL Myelocytes # (Manual) (0) k/uL Promyelocytes # (Man) (0) k/uL Nucleated RBCs (0-0) /100 WBC PT (10.0-12.5) sec INR (<1.2) APTT (22.0-30.0) sec Sodium 127 L (137-145) mmol/L Chloride 94 L (98-107) mmol/L Carbon Dioxide 13 L (22-30) mmol/L BUN 49 H (9-20) mg/dL Creatinine 2.19 H (0.66-1.25) mg/dL Glucose 54 L (74-99) mg/dL POC Glucose (mg/dL) (70-110) mg/dL Plasma Lactic Acid Michael 11.4 H* (0.7-2.0) mmol/L Uric Acid (3.5-8.5) mg/dL Total Bilirubin 2.1 H (0.2-1.3) mg/dL AST 91 H (17-59) U/L Alkaline Phosphatase 365 H (38-126) U/L Albumin 2.2 L (3.5-5.0) g/dL Lipase <10 L (23-300) U/L Urine Protein (Negative) Urine Bilirubin (Negative) Urine Bacteria (None) /hpf Hyaline Casts (0-2) /lpf Urine Mucus (None) /hpf 08/28/24 08/28/24 08/28/24 Range/Units 12:48 15:03 17:34 WBC (3.8-10.6) k/uL RBC (4.30-5.90) m/uL Hgb (13.0-17.5) gm/dL Hct (39.0-53.0) % Plt Count (150-450) k/uL Neutrophils # (Manual) (1.3-7.7) k/uL Lymphocytes # (Manual) (1.0-4.8) k/uL Monocytes # (Manual) (0-1.0) k/uL Eosinophils # (Manual) (0-0.7) k/uL Metamyelocytes # (Man) (0) k/uL Myelocytes # (Manual) (0) k/uL Promyelocytes # (Man) (0) k/uL Nucleated RBCs (0-0) /100 WBC PT (10.0-12.5) sec INR (<1.2) APTT (22.0-30.0) sec Sodium (137-145) mmol/L Chloride (98-107) mmol/L Carbon Dioxide (22-30) mmol/L BUN (9-20) mg/dL Creatinine (0.66-1.25) mg/dL Glucose (74-99) mg/dL POC Glucose (mg/dL) (70-110) mg/dL Plasma Lactic Acid Michael 8.9 H* (0.7-2.0) mmol/L Uric Acid 12.9 H (3.5-8.5) mg/dL Total Bilirubin (0.2-1.3) mg/dL AST (17-59) U/L Alkaline Phosphatase (38-126) U/L Albumin (3.5-5.0) g/dL Lipase (23-300) U/L Urine Protein 1+ H (Negative) Urine Bilirubin 1+ H (Negative) Urine Bacteria Rare H (None) /hpf Hyaline Casts 14 H (0-2) /lpf Urine Mucus Rare H (None) /hpf 08/28/24 08/28/24 08/28/24 Range/Units 18:27 19:20 19:21 WBC (3.8-10.6) k/uL RBC (4.30-5.90) m/uL Hgb (13.0-17.5) gm/dL Hct (39.0-53.0) % Plt Count (150-450) k/uL Neutrophils # (Manual) (1.3-7.7) k/uL Lymphocytes # (Manual) (1.0-4.8) k/uL Monocytes # (Manual) (0-1.0) k/uL Eosinophils # (Manual) (0-0.7) k/uL Metamyelocytes # (Man) (0) k/uL Myelocytes # (Manual) (0) k/uL Promyelocytes # (Man) (0) k/uL Nucleated RBCs (0-0) /100 WBC PT (10.0-12.5) sec INR (<1.2) APTT (22.0-30.0) sec Sodium (137-145) mmol/L Chloride (98-107) mmol/L Carbon Dioxide (22-30) mmol/L BUN (9-20) mg/dL Creatinine (0.66-1.25) mg/dL Glucose (74-99) mg/dL POC Glucose (mg/dL) 47 L* 46 L* (70-110) mg/dL Plasma Lactic Acid Michael 9.3 H* (0.7-2.0) mmol/L Uric Acid (3.5-8.5) mg/dL Total Bilirubin (0.2-1.3) mg/dL AST (17-59) U/L Alkaline Phosphatase (38-126) U/L Albumin (3.5-5.0) g/dL Lipase (23-300) U/L Urine Protein (Negative) Urine Bilirubin (Negative) Urine Bacteria (None) /hpf Hyaline Casts (0-2) /lpf Urine Mucus (None) /hpf 08/28/24 08/28/24 08/29/24 Range/Units 21:43 21:43 00:30 WBC (3.8-10.6) k/uL RBC (4.30-5.90) m/uL Hgb (13.0-17.5) gm/dL Hct (39.0-53.0) % Plt Count (150-450) k/uL Neutrophils # (Manual) (1.3-7.7) k/uL Lymphocytes # (Manual) (1.0-4.8) k/uL Monocytes # (Manual) (0-1.0) k/uL Eosinophils # (Manual) (0-0.7) k/uL Metamyelocytes # (Man) (0) k/uL Myelocytes # (Manual) (0) k/uL Promyelocytes # (Man) (0) k/uL Nucleated RBCs (0-0) /100 WBC PT (10.0-12.5) sec INR (<1.2) APTT (22.0-30.0) sec Sodium 129 L (137-145) mmol/L Chloride 97 L (98-107) mmol/L Carbon Dioxide 17 L (22-30) mmol/L BUN 57 H (9-20) mg/dL Creatinine 2.41 H (0.66-1.25) mg/dL Glucose (74-99) mg/dL POC Glucose (mg/dL) (70-110) mg/dL Plasma Lactic Acid Michael 7.7 H* 7.3 H* (0.7-2.0) mmol/L Uric Acid 11.3 H (3.5-8.5) mg/dL Total Bilirubin 2.1 H (0.2-1.3) mg/dL AST (17-59) U/L Alkaline Phosphatase 327 H (38-126) U/L Albumin 2.1 L (3.5-5.0) g/dL Lipase (23-300) U/L Urine Protein (Negative) Urine Bilirubin (Negative) Urine Bacteria (None) /hpf Hyaline Casts (0-2) /lpf Urine Mucus (None) /hpf 08/29/24 08/29/24 08/29/24 Range/Units 03:21 03:21 03:21 WBC 96.3 H* (3.8-10.6) k/uL RBC 3.43 L (4.30-5.90) m/uL Hgb 10.7 L (13.0-17.5) gm/dL Hct 33.1 L (39.0-53.0) % Plt Count 75 L (150-450) k/uL Neutrophils # (Manual) 55.80 H (1.3-7.7) k/uL Lymphocytes # (Manual) 7.70 H (1.0-4.8) k/uL Monocytes # (Manual) 4.82 H (0-1.0) k/uL Eosinophils # (Manual) 26.96 H (0-0.7) k/uL Metamyelocytes # (Man) 1.93 H (0) k/uL Myelocytes # (Manual) 0.96 H (0) k/uL Promyelocytes # (Man) (0) k/uL Nucleated RBCs 12 H (0-0) /100 WBC PT (10.0-12.5) sec INR (<1.2) APTT (22.0-30.0) sec Sodium 130 L (137-145) mmol/L Chloride (98-107) mmol/L Carbon Dioxide 13 L (22-30) mmol/L BUN 61 H (9-20) mg/dL Creatinine 2.29 H (0.66-1.25) mg/dL Glucose 58 L (74-99) mg/dL POC Glucose (mg/dL) (70-110) mg/dL Plasma Lactic Acid Michael 9.5 H* (0.7-2.0) mmol/L Uric Acid 10.1 H (3.5-8.5) mg/dL Total Bilirubin 2.1 H (0.2-1.3) mg/dL AST 61 H (17-59) U/L Alkaline Phosphatase 345 H (38-126) U/L Albumin 2.0 L (3.5-5.0) g/dL Lipase (23-300) U/L Urine Protein (Negative) Urine Bilirubin (Negative) Urine Bacteria (None) /hpf Hyaline Casts (0-2) /lpf Urine Mucus (None) /hpf 08/29/24 08/29/24 08/29/24 Range/Units 04:08 04:36 06:49 WBC (3.8-10.6) k/uL RBC (4.30-5.90) m/uL Hgb (13.0-17.5) gm/dL Hct (39.0-53.0) % Plt Count (150-450) k/uL Neutrophils # (Manual) (1.3-7.7) k/uL Lymphocytes # (Manual) (1.0-4.8) k/uL Monocytes # (Manual) (0-1.0) k/uL Eosinophils # (Manual) (0-0.7) k/uL Metamyelocytes # (Man) (0) k/uL Myelocytes # (Manual) (0) k/uL Promyelocytes # (Man) (0) k/uL Nucleated RBCs (0-0) /100 WBC PT (10.0-12.5) sec INR (<1.2) APTT (22.0-30.0) sec Sodium (137-145) mmol/L Chloride (98-107) mmol/L Carbon Dioxide (22-30) mmol/L BUN (9-20) mg/dL Creatinine (0.66-1.25) mg/dL Glucose (74-99) mg/dL POC Glucose (mg/dL) 55 L 132 H (70-110) mg/dL Plasma Lactic Acid Michael 7.8 H* (0.7-2.0) mmol/L Uric Acid (3.5-8.5) mg/dL Total Bilirubin (0.2-1.3) mg/dL AST (17-59) U/L Alkaline Phosphatase (38-126) U/L Albumin (3.5-5.0) g/dL Lipase (23-300) U/L Urine Protein (Negative) Urine Bilirubin (Negative) Urine Bacteria (None) /hpf Hyaline Casts (0-2) /lpf Urine Mucus (None) /hpf Assessment and Plan (1) Leukocytosis Current Visit: Yes Status: Acute Priority: High Code(s): D72.829 - ELEVATED WHITE BLOOD CELL COUNT, UNSPECIFIED SNOMED Code(s): 613834550 (2) Septic shock Current Visit: Yes Status: Acute Priority: High Code(s): A41.9 - SEPSIS, UNSPECIFIED ORGANISM; R65.21 - SEVERE SEPSIS WITH SEPTIC SHOCK SNOMED Code(s): 60082113 Plan: 1patient presented hospital with sepsis in this patient who did have fever tachycardia concerning likely for an intra-abdominal as the patient did have abdominal distention as well as tenderness with recent CT done at [facility] was suggestive of rectal wall thickening in addition to the hepatosplenomegaly and possible splenic infarcts and need to cover for the enteric gram-negative with the likely pathogen both aerobes and anaerobes and a question of possible pneumonia 2patient with renal insufficiency high risk of nephrotoxicity from vancomycin 3we will discontinue vancomycin and cefepime 4start the patient on Zosyn and Zyvox while waiting for the workup to be completed Prognosis remains to be guarded We will follow on clinical condition and cultures to further adjust medication if needed Thank you for this consultation we will follow the patient along with you Dictation was produced using [employer] dictation software. please excuse any grammatical, word or spelling errors. Time with Patient: Greater than 30
[2024-08-29] MEDS: PIPERACILLIN-TAZOBACTAM 3.375 GM in SODIUM CHLORIDE 0.9% 100 ML IVPB SCH (22:59)
[2024-08-29 23:06] LABS: Glucose,Whole Blood 57 mg/dL (70-110)
[2024-08-29 23:39] LABS: Glucose,Whole Blood 96 mg/dL (70-110)
[2024-08-29] MEDS: FUROSEMIDE 10 MG/ML 2 ML VIAL IV ONE (23:43)
[2024-08-30] MEDS ORDERED: DEXTROSE 50% SYRINGE 50 ML IVP PRN (03:00)
[2024-08-30 03:39] LABS: HCT 29.2 % (39.0-53.0); HGB 9.6 gm/dL (13.0-17.5); Hypochromasia Slight; MCH 32.4 pg (25.0-35.0); MCHC 32.9 g/dL (31.0-37.0); MCV 98.4 fL (80.0-100.0); Mean Platelet Volume 12.6; RBC 2.97 m/uL (4.30-5.90); RDW 14.7 % (11.5-15.5)
[2024-08-30 03:41] LABS: Platelet Count 39 k/uL (150-450)
[2024-08-30 03:43] LABS: INR 3.5 (<1.2); Partial Thromboplastin Time 48.6 sec (22.0-30.0); Prothrombin Time 35.1 sec (10.0-12.5)
[2024-08-30 03:57] LABS: Band Neutrophils % 44 %; Metamyelocytes % 1 %; Myelocytes % 6 %; Neutrophils % (M) 16 %; Nucleated Red Blood Cells 3 /100 WBC (0-0); Promyelocytes % 2 %; Total Cells Counted 200
[2024-08-30 03:59] LABS: Eosinophils # (M) 17.93 k/uL (0-0.7); Lymphocytes # (M) 5.98 k/uL (1.0-4.8); Monocytes # (M) 6.97 k/uL (0-1.0); Myelocytes # (M) 5.98 k/uL (0); Promyelocytes # (M) 1.99 k/uL (0); WBC 99.6 k/uL (3.8-10.6)
[2024-08-30 04:14] LABS: AST 40 U/L (17-59); Albumin <1.0 g/dL (3.5-5.0); Alkaline Phosphatase 358 U/L (38-126); Carbon Dioxide 13 mmol/L (22-30)
[2024-08-30 04:16] LABS: Glucose,Whole Blood 44 mg/dL (70-110)
[2024-08-30 04:17] LABS: Glucose,Whole Blood 35 mg/dL (70-110)
[2024-08-30 04:37] LABS: African American GFR (CKD) 22 (>60 ml/min/1.73 sqM); Anion Gap 18 mmol/L; Blood Urea Nitrogen 64 mg/dL (9-20); Calcium 8.2 mg/dL (8.4-10.2); Chloride 104 mmol/L (98-107); Non-African American GFR(CKD) 19 (>60 ml/min/1.73 sqM); Phosphorus 2.5 mg/dL (2.5-4.5); Potassium 4.2 mmol/L (3.5-5.1); Sodium 135 mmol/L (137-145); Total Bilirubin 2.3 mg/dL (0.2-1.3); Total Protein 6.4 g/dL (6.3-8.2); Uric Acid 8.8 mg/dL (3.5-8.5)
[2024-08-30 04:38] LABS: Glucose,Whole Blood 103 mg/dL (70-110)
[2024-08-30] MEDS: DEXTROSE 10% IN WATER 500 ML in EMPTY BAG 1 BAG IV SCH (04:53)
[2024-08-30 05:42] LABS: ALT 33 U/L (4-49); Glucose 33 mg/dL (74-99)
[2024-08-30] MEDS ORDERED: VANCOMYCIN 1,250 MG in SODIUM CHLORIDE 0.9% 250 ML IVPB SCH (06:00)
[2024-08-30 06:11] LABS: Glucose,Whole Blood 60 mg/dL (70-110)
[2024-08-30] MEDS: DEXTROSE 50% SYRINGE 50 ML IVP PRN (06:15)
[2024-08-30 06:27] LABS: Glucose,Whole Blood 118 mg/dL (70-110)
[2024-08-30] MEDS: LINEZOLID 600 MG TAB PO SCH (08:05)
[2024-08-30] MEDS: FAMOTIDINE 20 MG/2 ML VIAL IV SCH (08:48)
[2024-08-30 09:31] LABS: Glucose,Whole Blood 69 mg/dL (70-110)
--- NOTE | 2024-08-30 10:57 | P.PN ---
Subjective Patient is seen in follow-up for acute kidney injury. Renal function worsening. Urine output 10 to 20 cc an hour for the last couple of hours. On bicarb drip. Poor historian. Vital signs are stable. Off vasopressors. General: Resting in bed. Cachectic appearing. HEENT: On nasal cannula. LUNGS: No audible rhonchi or wheezes. HEART: Tachycardic. ABDOMEN: No distention. EXTREMITITES: No edema. Objective - Vital Signs Vital signs: Vital Signs Temp 100.8 F H 08/30/24 10:46 Pulse 125 H 08/30/24 10:46 Resp 23 08/30/24 10:46 BP 79/46 08/30/24 10:46 Pulse Ox 94 L 08/30/24 10:46 FiO2 Intake & Output 08/29/24 08/30/24 08/30/24 18:59 06:59 18:59 Intake Total 2741.265 2764.386 538 Output Total 170 75 33 Balance 2571.265 2689.386 505 Weight 73.482 kg 79.8 kg Intake: IV 1635 465 Dextrose 10% in Water 500 60 90 ml In Empty Bag 1 bag @ 30 mls/hr IV .[id number] BAN Rx#:[id number] Dextrose 5% in Water 1, 1375 375 000 ml @ 125 mls/hr IV . Q9H12M BAN with Sodium Bicarb (1 Meq/ml) 150 ml Rx#:[id number] Piperacillin-Tazobactam 3 200 .375 gm In Sodium Chloride 0.9% 100 ml @ 25 mls/hr IVPB Q8H BAN Rx#: [id number] Intake, IV Titration 2663.265 1129.386 0 Amount Dextrose 5% in Water 1, 375 000 ml @ 125 mls/hr IV . Q9H12M BAN with Sodium Bicarb (1 Meq/ml) 150 ml Rx#:[id number] Dextrose 5%-0.9% NaCl 1, 125 125 000 ml @ 125 mls/hr IV . Q8H BAN Rx#:[id number] Norepinephrine 4 mg In 163.265 4.386 0 Sodium Chloride 0.9% 250 ml @ 0.03 MCG/KG/MIN 8. 399 mls/hr IV .Q24H BAN Rx#:[id number] Sodium Chloride 0.9% 1, 1000 000 ml @ 999 mls/hr IV . Q1H1M ONE Rx#:[id number] Sodium Chloride 0.9% 1, 1000 1000 000 ml @ 999 mls/hr IV . Q1H1M ONE Rx#:[id number] Blood Product 78 73 Pooled Cryoprecipitate 78 Unit [id number] Pooled Cryoprecipitate 73 Unit [id number] Output: Urine 170 75 33 Other: Voiding Method Indwelling Catheter Indwelling Catheter - Labs CBC & Chem 7: 08/30/24 02:54 08/30/24 02:54 Labs: Abnormal Lab Results - Last 24 Hours (Table) 08/29/24 08/29/24 08/29/24 Range/Units 11:47 12:32 14:39 WBC (3.8-10.6) k/uL RBC (4.30-5.90) m/uL Hgb (13.0-17.5) gm/dL Hct (39.0-53.0) % Plt Count (150-450) k/uL Neutrophils # (Manual) (1.3-7.7) k/uL Lymphocytes # (Manual) (1.0-4.8) k/uL Monocytes # (Manual) (0-1.0) k/uL Eosinophils # (Manual) (0-0.7) k/uL Metamyelocytes # (Man) (0) k/uL Myelocytes # (Manual) (0) k/uL Promyelocytes # (Man) (0) k/uL Nucleated RBCs (0-0) /100 WBC PT (10.0-12.5) sec INR (<1.2) APTT (22.0-30.0) sec Fibrinogen (200-500) mg/dL Sodium (137-145) mmol/L Carbon Dioxide (22-30) mmol/L BUN (9-20) mg/dL Creatinine (0.66-1.25) mg/dL Glucose (74-99) mg/dL POC Glucose (mg/dL) 56 L 60 L (70-110) mg/dL Plasma Lactic Acid Michael 10.4 H* (0.7-2.0) mmol/L Uric Acid (3.5-8.5) mg/dL Calcium (8.4-10.2) mg/dL Total Bilirubin (0.2-1.3) mg/dL Alkaline Phosphatase (38-126) U/L Albumin (3.5-5.0) g/dL 08/29/24 08/29/24 08/29/24 Range/Units 15:52 19:06 21:38 WBC (3.8-10.6) k/uL RBC (4.30-5.90) m/uL Hgb (13.0-17.5) gm/dL Hct (39.0-53.0) % Plt Count (150-450) k/uL Neutrophils # (Manual) (1.3-7.7) k/uL Lymphocytes # (Manual) (1.0-4.8) k/uL Monocytes # (Manual) (0-1.0) k/uL Eosinophils # (Manual) (0-0.7) k/uL Metamyelocytes # (Man) (0) k/uL Myelocytes # (Manual) (0) k/uL Promyelocytes # (Man) (0) k/uL Nucleated RBCs (0-0) /100 WBC PT (10.0-12.5) sec INR (<1.2) APTT (22.0-30.0) sec Fibrinogen (200-500) mg/dL Sodium (137-145) mmol/L Carbon Dioxide (22-30) mmol/L BUN (9-20) mg/dL Creatinine (0.66-1.25) mg/dL Glucose (74-99) mg/dL POC Glucose (mg/dL) (70-110) mg/dL Plasma Lactic Acid Michael 11.6 H* 8.2 H* 7.6 H* (0.7-2.0) mmol/L Uric Acid (3.5-8.5) mg/dL Calcium (8.4-10.2) mg/dL Total Bilirubin (0.2-1.3) mg/dL Alkaline Phosphatase (38-126) U/L Albumin (3.5-5.0) g/dL 08/29/24 08/30/24 08/30/24 Range/Units 23:04 02:54 02:54 WBC 99.6 H* (3.8-10.6) k/uL RBC 2.97 L (4.30-5.90) m/uL Hgb 9.6 L (13.0-17.5) gm/dL Hct 29.2 L (39.0-53.0) % Plt Count 39 L (150-450) k/uL Neutrophils # (Manual) 59.70 H (1.3-7.7) k/uL Lymphocytes # (Manual) 5.98 H (1.0-4.8) k/uL Monocytes # (Manual) 6.97 H (0-1.0) k/uL Eosinophils # (Manual) 17.93 H (0-0.7) k/uL Metamyelocytes # (Man) 1.00 H (0) k/uL Myelocytes # (Manual) 5.98 H (0) k/uL Promyelocytes # (Man) 1.99 H (0) k/uL Nucleated RBCs 3 H (0-0) /100 WBC PT (10.0-12.5) sec INR (<1.2) APTT (22.0-30.0) sec Fibrinogen (200-500) mg/dL Sodium 135 L (137-145) mmol/L Carbon Dioxide 13 L (22-30) mmol/L BUN 64 H (9-20) mg/dL Creatinine 3.13 H (0.66-1.25) mg/dL Glucose 33 L* (74-99) mg/dL POC Glucose (mg/dL) 57 L (70-110) mg/dL Plasma Lactic Acid Michael (0.7-2.0) mmol/L Uric Acid 8.8 H (3.5-8.5) mg/dL Calcium 8.2 L (8.4-10.2) mg/dL Total Bilirubin 2.3 H (0.2-1.3) mg/dL Alkaline Phosphatase 358 H (38-126) U/L Albumin <1.0 L (3.5-5.0) g/dL 08/30/24 08/30/24 08/30/24 Range/Units 02:54 04:14 04:16 WBC (3.8-10.6) k/uL RBC (4.30-5.90) m/uL Hgb (13.0-17.5) gm/dL Hct (39.0-53.0) % Plt Count (150-450) k/uL Neutrophils # (Manual) (1.3-7.7) k/uL Lymphocytes # (Manual) (1.0-4.8) k/uL Monocytes # (Manual) (0-1.0) k/uL Eosinophils # (Manual) (0-0.7) k/uL Metamyelocytes # (Man) (0) k/uL Myelocytes # (Manual) (0) k/uL Promyelocytes # (Man) (0) k/uL Nucleated RBCs (0-0) /100 WBC PT 35.1 H (10.0-12.5) sec INR 3.5 H (<1.2) APTT 48.6 H (22.0-30.0) sec Fibrinogen 90 L (200-500) mg/dL Sodium (137-145) mmol/L Carbon Dioxide (22-30) mmol/L BUN (9-20) mg/dL Creatinine (0.66-1.25) mg/dL Glucose (74-99) mg/dL POC Glucose (mg/dL) 44 L* 35 L* (70-110) mg/dL Plasma Lactic Acid Michael (0.7-2.0) mmol/L Uric Acid (3.5-8.5) mg/dL Calcium (8.4-10.2) mg/dL Total Bilirubin (0.2-1.3) mg/dL Alkaline Phosphatase (38-126) U/L Albumin (3.5-5.0) g/dL 08/30/24 08/30/24 08/30/24 Range/Units 06:10 06:26 09:30 WBC (3.8-10.6) k/uL RBC (4.30-5.90) m/uL Hgb (13.0-17.5) gm/dL Hct (39.0-53.0) % Plt Count (150-450) k/uL Neutrophils # (Manual) (1.3-7.7) k/uL Lymphocytes # (Manual) (1.0-4.8) k/uL Monocytes # (Manual) (0-1.0) k/uL Eosinophils # (Manual) (0-0.7) k/uL Metamyelocytes # (Man) (0) k/uL Myelocytes # (Manual) (0) k/uL Promyelocytes # (Man) (0) k/uL Nucleated RBCs (0-0) /100 WBC PT (10.0-12.5) sec INR (<1.2) APTT (22.0-30.0) sec Fibrinogen (200-500) mg/dL Sodium (137-145) mmol/L Carbon Dioxide (22-30) mmol/L BUN (9-20) mg/dL Creatinine (0.66-1.25) mg/dL Glucose (74-99) mg/dL POC Glucose (mg/dL) 60 L 118 H 69 L (70-110) mg/dL Plasma Lactic Acid Michael (0.7-2.0) mmol/L Uric Acid (3.5-8.5) mg/dL Calcium (8.4-10.2) mg/dL Total Bilirubin (0.2-1.3) mg/dL Alkaline Phosphatase (38-126) U/L Albumin (3.5-5.0) g/dL Assessment and Plan Plan: Assessment: 1. Acute kidney injury secondary to ATN secondary to septic shock. Questionable tumor lysis syndrome with uric acid 12.9 on admission status post rasburicase. No evidence of hyperkalemia or hyperphosphatemia. Creatinine 0.5 in January 2024. Creatinine up to 3.1 today. Oliguric. No hydronephrosis noted on CAT scan. 2. Septic shock currently off Levophed. Concern for DIC. 3. Metabolic acidosis secondary to acute kidney injury and IV fluids. On bicarb drip. 4. 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 Oncology following. 5. Hypovolemic hyponatremia improved with normal saline. Plan: Maintain bicarb drip. Increase rate to 150 cc an hour. 4 A bicarb IV push today. Avoid nephrotoxins. Continue to monitor renal function and urine output. Continue to assess daily for need for renal replacement therapy.
[2024-08-30] MEDS: SODIUM BICARB 8.4% 50 ML SYR (1 MEQ/ML) IV STA (11:07)
[2024-08-30 12:02] LABS: Glucose,Whole Blood 47 mg/dL (70-110)
--- NOTE | 2024-08-30 12:11 | CA ---
Transthoracic Echo Report Name: Pako Hicks Age: 69 Gender: M : 1955 Exam Date: 08/30/2024 08:34 Exam Location: [facility] Ht (in): 76 Wt (lb): 162 Ordering Physician: Uche Salzaar Attending/Referring Phys: Business Continuity Analyst Elisabet Hummel RDCS Procedure CPT: Indications: evaluate LV function Cardiac Hx: Technical Quality: Technically difficult study Contrast 1: Definity Total Dose (mL): 3 Contrast 2: Total Dose (mL): MEASUREMENTS (Male / Female) Normal Values 2D ECHO LV Diastolic Diameter PLAX 4.2 cm 4.2 - 5.9 / 3.9 - 5.3 cm LV Systolic Diameter PLAX 3.5 cm IVS Diastolic Thickness 0.8 cm 0.6 - 1.0 / 0.6 - 0.9 cm LVPW Diastolic Thickness 1.2 cm 0.6 - 1.0 / 0.6 - 0.9 cm LV Relative Wall Thickness 0.5 LVOT Diameter 2.8 cm LV Diastolic Volume MOD BP 172.5 cm??? 67 - 155 / 56 - 104 cm??? LV Systolic Volume MOD BP 110.0 cm??? 22 - 58 / 19 - 49 cm??? LV Ejection Fraction MOD BP 36.2 % >= 55 % LV Cardiac Index MOD BP 3805.3 cm???/min???m??? LV Diastolic Volume MOD 4C 180.6 cm??? LV Systolic Volume MOD 4C 111.6 cm??? LV Ejection Fraction MOD 4C 38.2 % LV Cardiac Index MOD 4C 4198.2 cm???/min???m??? LV Diastolic Length 4C 11.2 cm LV Systolic Length 4C 8.8 cm LV Diastolic Volume MOD 2C 138.3 cm??? LV Systolic Volume MOD 2C 102.0 cm??? LV Ejection Fraction MOD 2C 26.2 % LV Cardiac Index MOD 2C 2208.6 cm???/min???m??? LV Diastolic Length 2C 9.4 cm LV Systolic Length 2C 9.4 cm LA Volume 82.0 cm??? 18 - 58 / 22 - 52 cm??? LA Volume Index 41.6 cm???/m??? 16 - 28 cm???/m??? DOPPLER AV Peak Velocity 160.8 cm/s AV Peak Gradient 10.3 mmHg AV Mean Velocity 111.8 cm/s AV Mean Gradient 5.5 mmHg AV Velocity Time Integral 18.9 cm LVOT Peak Velocity 107.6 cm/s LVOT Peak Gradient 4.6 mmHg LVOT Velocity Time Integral 12.1 cm LVOT Stroke Volume 75.6 cm??? LVOT Stroke Volume Index 37.3 ml/m??? LVOT Cardiac Index 4602.9 cm???/min???m??? AV Area Cont Eq vti 4.0 cm??? AV Area Cont Eq pk 4.2 cm??? MV Peak Velocity 133.0 cm/s MV Peak Gradient 7.1 mmHg MV Mean Velocity 104.4 cm/s MV Mean Gradient 4.6 mmHg MV Velocity Time Integral 17.3 cm MV Area PHT 11.0 cm??? Mitral E Point Velocity 37.6 cm/s Mitral A Point Velocity 110.9 cm/s Mitral E to A Ratio 0.3 MV Deceleration Time 68.8 ms TR Peak Velocity 245.3 cm/s TR Peak Gradient 24.1 mmHg Right Atrial Pressure 5.0 mmHg Pulmonary Artery Systolic Pressu 29.1 mmHg Right Ventricular Systolic Press 29.1 mmHg FINDINGS Left Ventricle Left ventricular ejection fraction is estimated at 30-35 %. Mildly increased left ventricular diastolic volume. Severely increased left ventricular systolic volume. Moderately decreased left ventricular ejection fraction. Global left ventricular hypokinesis. Right Ventricle Right ventricle not well visualized. Right ventricular systolic pressure within normal limits. Right Atrium Right atrium not well visualized. Left Atrium Severely increased left atrial volume. Mildly increased left atrial area. Mitral Valve Mitral valve thickened. Mitral annular calcification. [id number] mitral stenosis. Trace mitral regurgitation. Aortic Valve Trileaflet aortic valve. Focal thickening of the aortic valve cusps. No aortic valve stenosis or regurgitation. Tricuspid Valve Structurally normal tricuspid valve. No tricuspid stenosis. Mild tricuspid regurgitation. Pulmonic Valve Structurally normal pulmonic valve. No pulmonic stenosis. No pulmonic regurgitation. Pericardium No pericardial effusion. Aorta Aortic annulus normal. CONCLUSIONS Technically difficult study. LVEF estimated at 30-35 %. Ejection fraction is underestimated due to tachycardia. Mild LA dilatation. Mitral annular calcification. Mild tricuspid regurgitation. Previewed by: Dr Kevin Garcia (Electronically Signed) Final Date: 30 August 2024 12:09
[2024-08-30] MEDS: LINEZOLID 600 MG in DEXTROSE/WATER 1 300ML.BAG IVPB SCH (12:14)
[2024-08-30 12:27] LABS: Glucose,Whole Blood 102 mg/dL (70-110)
--- NOTE | 2024-08-30 12:47 | P.PN ---
Subjective Progress Note Date: 08/30/24 Principal diagnosis: Sepsis and septic shock in the setting of lymphoma and possible tumor lysis syndrome with coagulopathy Critical care consult placed following rapid response that was called early this morning in the emergency department. Patient was hypotensive, tachycardic, tachypneic, febrile. Sepsis workup is underway. Patient is a 69-year-old male with past medical history significant for lymphoma, congestive heart failure, ventral hernia repair, GERD, among other things. Patient originally brought in for fever of unknown origin and AMS. He cannot provide information for HPI, and family are not present. Workup in the emergency department including including a CT of the brain unremarkable for any acute intracranial process. CT of the abdomen/pelvis which showed a questionable right hilar lung mass and groundglass opacity in the right lung. Development of moderate hepatosplenomegaly, compression fractures noted on lumbar spine, reportedly stable. Moderate hiatal hernia. Questionable use urinary bladder wall thickening. Chest x-ray showing a prominent right hilum. No other acute cardiopulmonary process noted. CBC with a WBC count of 96.3, hemoglobin 10.7, platelets 75. CMP: Sodium 130, potassium 4.8, chloride 99, serum bicarb 13, anion gap 18, BUN 61, creatinine 2.29, glucose 58. AST 61, ALT 38, ALP 345. Total bili 2.1. Uric acid level 10.1. Lactic was as high as 11.4, and remains high most recently 7.8. Patient was febrile with a Tmax of 100.4 F. Viral screen negative for influenza RSV, COVID. Patient did receive a one-time dose of Rocephin. Urinalysis unremarkable for infection. Blood cultures are pending. I am currently neema luating this patient in the emergency department room 21. Obtunded, occasionally crying out. Does not follow any commands. Blood pressure 76/57 mmHg. Remains tachycardic with a rate of 133 bpm. Patient has already received 2 L fluid bolus. D5 W with normal saline is infusing at 125 mL/h. He is receiving an additional 1 L normal saline bolus. May require vasopressor support. Recommending transfer to the intensive care unit. Patient was seen today on 08/30/2024, remains in the ICU, remains extremely frail, blood pressure is marginal, patient was on norepinephrine overnight, today this was discontinued and blood pressure seems to be holding. Patient remains on sodium bicarb drip, he required placement on D10 for low blood sugar earlier today. Patient received a total of 3-1/2 L of fluids, and he continues to have fluid running at 150 cc/h. Patient is on antibiotics empirically in the form of Zosyn and Zyvox. He received cryoprecipitate yesterday, and he also received Rasburicase. Blood pressure remains soft, patient is extremely frail, seems to be confused, and gets agitated easily. Patient is being followed by many consultants, nephrology was also consulted because of his acute kidney injury. Labs today are quite abnormal continues to have leukocytosis with WC count of 99.6 hemoglobin is 9.6 platelets are 39,000's. PTT is 35 INR is 3.5 fibrinogen is low this is a picture of DIC. Patient received cryoprecipitate earlier by oncology. Electrolytes are normal however his bicarb is 13 BUN is 64 and creatinine is 3.13 which has been steadily rising since admission obviously the patient developed acute kidney injury. Liver enzymes were noted, alkaline phosphatase is 358 and his albumin today is less than 1. CT of the chest was reviewed, there is no evidence of mass but the patient did have some fullness in the right hilum appeared to be mostly pulmonary vascular in nature. Objective - Vital Signs Vital signs: Vital Signs Temp 100.8 F H 08/30/24 10:46 Pulse 125 H 08/30/24 10:46 Resp 23 08/30/24 10:46 BP 79/46 08/30/24 10:46 Pulse Ox 94 L 08/30/24 10:46 FiO2 Intake & Output 08/29/24 08/30/24 08/30/24 18:59 06:59 18:59 Intake Total 2741.265 2764.386 577.895 Output Total 170 75 33 Balance 2571.265 2689.386 544.895 Weight 73.482 kg 79.8 kg 79.8 kg Intake: IV 1635 465 Dextrose 10% in Water 500 60 90 ml In Empty Bag 1 bag @ 30 mls/hr IV .[id number] BAN Rx#:[id number] Dextrose 5% in Water 1, 1375 375 000 ml @ 125 mls/hr IV . Q9H12M BAN with Sodium Bicarb (1 Meq/ml) 150 ml Rx#:[id number] Piperacillin-Tazobactam 3 200 .375 gm In Sodium Chloride 0.9% 100 ml @ 25 mls/hr IVPB Q8H BAN Rx#: [id number] Intake, IV Titration 2663.265 1129.386 39.895 Amount Dextrose 5% in Water 1, 375 000 ml @ 125 mls/hr IV . Q9H12M BAN with Sodium Bicarb (1 Meq/ml) 150 ml Rx#:[id number] Dextrose 5%-0.9% NaCl 1, 125 125 000 ml @ 125 mls/hr IV . Q8H BAN Rx#:[id number] Norepinephrine 4 mg In 163.265 4.386 39.895 Sodium Chloride 0.9% 250 ml @ 0.03 MCG/KG/MIN 8. 399 mls/hr IV .Q24H BAN Rx#:[id number] Sodium Chloride 0.9% 1, 1000 000 ml @ 999 mls/hr IV . Q1H1M ONE Rx#:[id number] Sodium Chloride 0.9% 1, 1000 1000 000 ml @ 999 mls/hr IV . Q1H1M ONE Rx#:[id number] Blood Product 78 73 Pooled Cryoprecipitate 78 Unit [id number] Pooled Cryoprecipitate 73 Unit [id number] Output: Urine 170 75 33 Other: Voiding Method Indwelling Catheter Indwelling Catheter - Exam GENERAL EXAM: 69-year-old white male extremely frail, obtunded, confused, not in respiratory distress. HEAD: Normocephalic and atraumatic EYES: Normal reaction of pupils, equal size. NOSE: Clear with pink turbinates. THROAT: No erythema or exudates. Dry mucous membranes. NECK: No masses, no JVD. CHEST: No chest wall deformity. LUNGS: Equal air entry with no crackles, wheeze, rhonchi or dullness. On 2 L/min nasal cannula. CVS: S1 and S2 normal with no audible murmur, regular rhythm. No extra heart sounds ABDOMEN: No hepatosplenomegaly, active bowel sounds, no guarding or rigidity. SKIN: No rashes CENTRAL NERVOUS SYSTEM: Confused, profoundly weak could not volunteer any information. EXTREMITIES: No clubbing edema or cyanosis. - Labs CBC & Chem 7: 08/30/24 02:54 02/27/25 02:54 Labs: Abnormal Lab Results - Last 24 Hours (Table) 08/29/24 08/29/24 08/29/24 Range/Units 12:32 14:39 15:52 WBC (3.8-10.6) k/uL RBC (4.30-5.90) m/uL Hgb (13.0-17.5) gm/dL Hct (39.0-53.0) % Plt Count (150-450) k/uL Neutrophils # (Manual) (1.3-7.7) k/uL Lymphocytes # (Manual) (1.0-4.8) k/uL Monocytes # (Manual) (0-1.0) k/uL Eosinophils # (Manual) (0-0.7) k/uL Metamyelocytes # (Man) (0) k/uL Myelocytes # (Manual) (0) k/uL Promyelocytes # (Man) (0) k/uL Nucleated RBCs (0-0) /100 WBC PT (10.0-12.5) sec INR (<1.2) APTT (22.0-30.0) sec Fibrinogen (200-500) mg/dL Sodium (137-145) mmol/L Carbon Dioxide (22-30) mmol/L BUN (9-20) mg/dL Creatinine (0.66-1.25) mg/dL Glucose (74-99) mg/dL POC Glucose (mg/dL) 60 L (70-110) mg/dL Plasma Lactic Acid Michael 10.4 H* 11.6 H* (0.7-2.0) mmol/L Uric Acid (3.5-8.5) mg/dL Calcium (8.4-10.2) mg/dL Total Bilirubin (0.2-1.3) mg/dL Alkaline Phosphatase (38-126) U/L Albumin (3.5-5.0) g/dL 08/29/24 08/29/24 08/29/24 Range/Units 19:06 21:38 23:04 WBC (3.8-10.6) k/uL RBC (4.30-5.90) m/uL Hgb (13.0-17.5) gm/dL Hct (39.0-53.0) % Plt Count (150-450) k/uL Neutrophils # (Manual) (1.3-7.7) k/uL Lymphocytes # (Manual) (1.0-4.8) k/uL Monocytes # (Manual) (0-1.0) k/uL Eosinophils # (Manual) (0-0.7) k/uL Metamyelocytes # (Man) (0) k/uL Myelocytes # (Manual) (0) k/uL Promyelocytes # (Man) (0) k/uL Nucleated RBCs (0-0) /100 WBC PT (10.0-12.5) sec INR (<1.2) APTT (22.0-30.0) sec Fibrinogen (200-500) mg/dL Sodium (137-145) mmol/L Carbon Dioxide (22-30) mmol/L BUN (9-20) mg/dL Creatinine (0.66-1.25) mg/dL Glucose (74-99) mg/dL POC Glucose (mg/dL) 57 L (70-110) mg/dL Plasma Lactic Acid Michael 8.2 H* 7.6 H* (0.7-2.0) mmol/L Uric Acid (3.5-8.5) mg/dL Calcium (8.4-10.2) mg/dL Total Bilirubin (0.2-1.3) mg/dL Alkaline Phosphatase (38-126) U/L Albumin (3.5-5.0) g/dL 08/30/24 08/30/24 08/30/24 Range/Units 02:54 02:54 02:54 WBC 99.6 H* (3.8-10.6) k/uL RBC 2.97 L (4.30-5.90) m/uL Hgb 9.6 L (13.0-17.5) gm/dL Hct 29.2 L (39.0-53.0) % Plt Count 39 L (150-450) k/uL Neutrophils # (Manual) 59.70 H (1.3-7.7) k/uL Lymphocytes # (Manual) 5.98 H (1.0-4.8) k/uL Monocytes # (Manual) 6.97 H (0-1.0) k/uL Eosinophils # (Manual) 17.93 H (0-0.7) k/uL Metamyelocytes # (Man) 1.00 H (0) k/uL Myelocytes # (Manual) 5.98 H (0) k/uL Promyelocytes # (Man) 1.99 H (0) k/uL Nucleated RBCs 3 H (0-0) /100 WBC PT 35.1 H (10.0-12.5) sec INR 3.5 H (<1.2) APTT 48.6 H (22.0-30.0) sec Fibrinogen 90 L (200-500) mg/dL Sodium 135 L (137-145) mmol/L Carbon Dioxide 13 L (22-30) mmol/L BUN 64 H (9-20) mg/dL Creatinine 3.13 H (0.66-1.25) mg/dL Glucose 33 L* (74-99) mg/dL POC Glucose (mg/dL) (70-110) mg/dL Plasma Lactic Acid Michael (0.7-2.0) mmol/L Uric Acid 8.8 H (3.5-8.5) mg/dL Calcium 8.2 L (8.4-10.2) mg/dL Total Bilirubin 2.3 H (0.2-1.3) mg/dL Alkaline Phosphatase 358 H (38-126) U/L Albumin <1.0 L (3.5-5.0) g/dL 08/30/24 08/30/24 08/30/24 Range/Units 04:14 04:16 06:10 WBC (3.8-10.6) k/uL RBC (4.30-5.90) m/uL Hgb (13.0-17.5) gm/dL Hct (39.0-53.0) % Plt Count (150-450) k/uL Neutrophils # (Manual) (1.3-7.7) k/uL Lymphocytes # (Manual) (1.0-4.8) k/uL Monocytes # (Manual) (0-1.0) k/uL Eosinophils # (Manual) (0-0.7) k/uL Metamyelocytes # (Man) (0) k/uL Myelocytes # (Manual) (0) k/uL Promyelocytes # (Man) (0) k/uL Nucleated RBCs (0-0) /100 WBC PT (10.0-12.5) sec INR (<1.2) APTT (22.0-30.0) sec Fibrinogen (200-500) mg/dL Sodium (137-145) mmol/L Carbon Dioxide (22-30) mmol/L BUN (9-20) mg/dL Creatinine (0.66-1.25) mg/dL Glucose (74-99) mg/dL POC Glucose (mg/dL) 44 L* 35 L* 60 L (70-110) mg/dL Plasma Lactic Acid Michael (0.7-2.0) mmol/L Uric Acid (3.5-8.5) mg/dL Calcium (8.4-10.2) mg/dL Total Bilirubin (0.2-1.3) mg/dL Alkaline Phosphatase (38-126) U/L Albumin (3.5-5.0) g/dL 08/30/24 08/30/24 08/30/24 Range/Units 06:26 09:30 12:01 WBC (3.8-10.6) k/uL RBC (4.30-5.90) m/uL Hgb (13.0-17.5) gm/dL Hct (39.0-53.0) % Plt Count (150-450) k/uL Neutrophils # (Manual) (1.3-7.7) k/uL Lymphocytes # (Manual) (1.0-4.8) k/uL Monocytes # (Manual) (0-1.0) k/uL Eosinophils # (Manual) (0-0.7) k/uL Metamyelocytes # (Man) (0) k/uL Myelocytes # (Manual) (0) k/uL Promyelocytes # (Man) (0) k/uL Nucleated RBCs (0-0) /100 WBC PT (10.0-12.5) sec INR (<1.2) APTT (22.0-30.0) sec Fibrinogen (200-500) mg/dL Sodium (137-145) mmol/L Carbon Dioxide (22-30) mmol/L BUN (9-20) mg/dL Creatinine (0.66-1.25) mg/dL Glucose (74-99) mg/dL POC Glucose (mg/dL) 118 H 69 L 47 L* (70-110) mg/dL Plasma Lactic Acid Michael (0.7-2.0) mmol/L Uric Acid (3.5-8.5) mg/dL Calcium (8.4-10.2) mg/dL Total Bilirubin (0.2-1.3) mg/dL Alkaline Phosphatase (38-126) U/L Albumin (3.5-5.0) g/dL Assessment and Plan Assessment: Impression: Sepsis and septic shock in the setting of lymphoma, tumor lysis syndrome, DIC, t hrombocytopenia and anemia with leukocytosis and splenomegaly Hypotension and shock, suspect septic shock Severe anion gap metabolic acidosis and lactic acidosis Acute leukocytosis History of lymphoma Bicytopenia with thrombocytopenia and anemia Hyperuricemia, on rasburicase Acute kidney injury, secondary to hypotension and ATN AMS, suspect toxic metabolic encephalopathy Hypoglycemia Hyponatremia Coagulopathy Hepatosplenomegaly History of heart failure with reduced ejection fraction, most recent echocardiogram from January, estimating a left ventricular ejection fraction of 35 to 40%, without any significant valvular abnormalities reported. History of GERD Moderate hiatel hernia History of ventral hernia repair Compression fractures of the lumbar spine, reportedly stable Recommendation: Continue broad-spectrum antibiotics, Zosyn and Zyvox Continue IV fluids Continue bicarb Resume norepinephrine if necessary for low blood pressure Continue rasburicase Continue cryoprecipitate Continue to monitor closely electrolytes and renal profile Continue GI and DVT prophylaxis Continue D10 for hypoglycemia Continue cryoprecipitate for low fibrinogen Continue close follow-up in the ICU and close follow-up on his pulmonary status Explained to the yesterday that if his condition gets any worse may have to be placed on mechanical ventilation and she seems to be agreeable with that. Patient is critically ill with multiple complex medical issues as noted above Critical care time is 32 minutes Time with Patient: Greater than 30
--- NOTE | 2024-08-30 13:25 | US ---
EXAMINATION TYPE: US axilla LT DATE OF EXAM: 08/30/2024 COMPARISON: Chest CT one day earlier CLINICAL INDICATION: Male, 69 years old with history of lymphadenopathy, eval for biopsy; Dr garza lum ps TECHNIQUE: Targeted ultrasound left axilla FINDINGS: Multiple ? suspicious lymph nodes seen, most superficial is inferior mid axilla, rounded and hypoecho ic with peripheral vascularity = 0.9 x 0.8 x 0.9 cm ? Fluid area vs irregular lymph node with debris medial axilla = 1.9 x 0.8 x 3.0 cm IMPRESSION: Lymph nodes are abnormal. Reactive inflammatory and/or infectious etiology needs to be c onsidered. Underlying neoplasm is not excluded. Follow-up advised. [facility], , 08/30/2024 1:22 PM
--- NOTE | 2024-08-30 13:26 | US ---
EXAMINATION TYPE: US groin RT DATE OF EXAM: 08/30/2024 COMPARISON: CT abdomen and pelvis 2 days ago CLINICAL INDICATION: Male, 69 years old with history of lymphadenopathy, eval for biopsy; TECHNIQUE: Targeted ultrasound FINDINGS: Multiple lymph nodes seen; rounded hypoechoic one inferomedial = 1.0 x 0.7 x 0.8 cm ? Fluid are mediosuperior = 2.1 x 0.2 cm Prominent but subcentimeter lymph nodes with some loss of normal fatty hilum IMPRESSION: Reactive adenopathy is suspected. Correlate for underlying infectious and/or inflammator y etiology. Neoplastic process not excluded. Follow up advised. [facility], , 08/30/2024 1:24 PM
--- NOTE | 2024-08-30 14:24 | P.PN ---
Subjective Progress Note Date: 08/30/24 Hospital Course: Patient is a 69-year-old male with past medical history significant for T-cell, congestive heart failure, GERD who presented to the ER for altered mental status and fever of unknown origin. Patient's is at the bedside and provides most of the history. states that he had recent hospital admission at [facility] went home but then on Tuesday he was not drinking or eating well. She states that he steadily declined over the weekend and became increasingly confused and had concerns of dehydration. 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 López from [facility]. She states his last chemotherapy session was in [address] showed spleen mets. She states he was endorsing abdominal pain. She denies any nausea, vomiting, or diarrhea. ED documentation reviewed. In the ED patient was treated with 3 L bolus of 0.9% NS and started on Levophed for hypotension. Vitals on admission Temperature 97.7 F, heart rate 122, respiratory rate 20, blood pressure 111/75, O2 saturation 100% on room air EKG independently interpreted as sinus tachycardia with rate 117 and QTc of 459 ms CXR shows chronic changes without acute peripheral pulmonary infiltrates CT of abdomen pelvis shows questionable right hilar lung mass and groundglass opacities in the right lung. Small ascites, stable compression fractures in upper lumbar spine, moderate hiatal hernia, diffusely thickened bladder wall Labs on admission show WBCs one 1011.7 platelets 81. PTT 40.4, INR4.1, PTT 35.2. Sodium 129, potassium 4.8, chloride 97, bicarb 17, BUN 57, creatinine 2.41, glucose 76. Lactate 7.7. Uric acid 11.3. ALP 327. UA shows dark brown, cloudy urine. Viral 4 Plex is negative. 08/30/2024 Patient seen and examined at bedside in intensive care unit. Patient's pressure continues to remain low despite vasopressors. He had a few episodes of hypoglycemia overnight and received a few amps of dextrose. Patient's urine output is between 5 to 10 cc/h. Pertinent positives and negatives discussed above, a complete review of systems was performed and all the other systems were negative. Vitals Signs Reviewed. GENERAL EXAM: Obtunded, occasionally cries out in pain, hypotensive, tachycardic HEAD: Normocephalic and atraumatic EYES: Normal reaction of pupils, equal size. NOSE: Clear with pink turbinates. THROAT: No erythema or exudates. Dry mucous membranes. NECK: No masses, no JVD. CHEST: No chest wall deformity. LUNGS: Equal air entry with no crackles, wheeze, rhonchi or dullness. Room air CVS: S1 and S2 normal with no audible murmur, regular rhythm. No extra heart sounds ABDOMEN: No hepatosplenomegaly, active bowel sounds, no guarding or rigidity. SPINE: No scoliosis or deformity SKIN: No rashes CENTRAL NERVOUS SYSTEM: No focal deficits, tone is normal in all 4 extremities. EXTREMITIES: There is bipedal edema. No clubbing or cyanosis. Peripheral pulses are weak but palpable. LYMPH: Lymphadenopathy in the left axilla and right groin Data Reviewed Today: Patient Labs: WBCs 99.6, hemoglobin 9.6, platelets 39. PT 35.1, INR 3.5, PTT 48.6, fibrinogen 90. Sodium 135, potassium 4.2, chloride 104, bicarb 13, BUN 64, creatinine 3.13, glucose 33. Imaging: Axilla ultrasound shows abnormal lymph nodes: Reactive inflammatory and/or infectious etiology Groin ultrasound shows reactive adenopathy: Underlying infectious and/or inflammatory Echocardiogram shows EF of 30 to 35% CT chest Assessment and Plan: Suspected septic shock without known source of infection History of lymphoma, no longer in remission, not on chemotherapy Possible tumor lysis syndrome Metabolic acidosis secondary to NARGIS Hypoglycemia Continue Zosyn and linezolid Continue Levophed Continue D10 water with sodium bicarb 125 mL/h Follow-up blood cultures Echocardiogram findings listed above ICU management Consulted heme-onc Consulted nephrology GERD Continue Protonix 20 mg IV twice daily The patient is admitted with an anticipated more than 2 midnight stay for evalu ation of suspected septic shock, possible tumor lysis syndrome CODE STATUS: Full code Discussed with: Patient Anticipated discharge place: Pending clinical course Objective - Vital Signs Vital signs: Vital Signs Temp 100.3 F H 08/30/24 04:00 Pulse 120 H 08/30/24 07:00 Resp 18 08/30/24 07:00 BP 109/63 08/30/24 07:00 Pulse Ox 96 08/30/24 07:00 FiO2 Intake & Output 08/29/24 08/30/24 08/30/24 18:59 06:59 18:59 Intake Total 2741.265 2764.386 155 Output Total 170 75 3 Balance 2571.265 2689.386 152 Weight 73.482 kg 79.8 kg Intake: IV 1635 155 Dextrose 10% in Water 500 60 30 ml In Empty Bag 1 bag @ 30 mls/hr IV .[id number] BAN Rx#:[id number] Dextrose 5% in Water 1, 1375 125 000 ml @ 125 mls/hr IV . Q9H12M BAN with Sodium Bicarb (1 Meq/ml) 150 ml Rx#:[id number] Piperacillin-Tazobactam 3 200 .375 gm In Sodium Chloride 0.9% 100 ml @ 25 mls/hr IVPB Q8H BAN Rx#: [id number] Intake, IV Titration 2663.265 1129.386 Amount Dextrose 5% in Water 1, 375 000 ml @ 125 mls/hr IV . Q9H12M BAN with Sodium Bicarb (1 Meq/ml) 150 ml Rx#:[id number] Dextrose 5%-0.9% NaCl 1, 125 125 000 ml @ 125 mls/hr IV . Q8H BAN Rx#:[id number] Norepinephrine 4 mg In 163.265 4.386 Sodium Chloride 0.9% 250 ml @ 0.03 MCG/KG/MIN 8. 399 mls/hr IV .Q24H BAN Rx#:[id number] Sodium Chloride 0.9% 1, 1000 000 ml @ 999 mls/hr IV . Q1H1M ONE Rx#:[id number] Sodium Chloride 0.9% 1, 1000 1000 000 ml @ 999 mls/hr IV . Q1H1M ONE Rx#:[id number] Blood Product 78 Pooled Cryoprecipitate 78 Unit [id number] Output: Urine 170 75 3 Other: Voiding Method Indwelling Catheter Indwelling Catheter - Labs CBC & Chem 7: 08/30/24 02:54 08/30/24 02:54 Labs: Abnormal Lab Results - Last 24 Hours (Table) 08/29/24 08/29/24 08/29/24 Range/Units 08:36 09:47 11:47 WBC (3.8-10.6) k/uL RBC (4.30-5.90) m/uL Hgb (13.0-17.5) gm/dL Hct (39.0-53.0) % Plt Count (150-450) k/uL Neutrophils # (Manual) (1.3-7.7) k/uL Lymphocytes # (Manual) (1.0-4.8) k/uL Monocytes # (Manual) (0-1.0) k/uL Eosinophils # (Manual) (0-0.7) k/uL Metamyelocytes # (Man) (0) k/uL Myelocytes # (Manual) (0) k/uL Promyelocytes # (Man) (0) k/uL Nucleated RBCs (0-0) /100 WBC PT (10.0-12.5) sec INR (<1.2) APTT (22.0-30.0) sec Fibrinogen 88 L (200-500) mg/dL Sodium (137-145) mmol/L Carbon Dioxide (22-30) mmol/L BUN (9-20) mg/dL Creatinine (0.66-1.25) mg/dL Glucose (74-99) mg/dL POC Glucose (mg/dL) 56 L (70-110) mg/dL Plasma Lactic Acid Michael 6.2 H* (0.7-2.0) mmol/L Uric Acid (3.5-8.5) mg/dL Calcium (8.4-10.2) mg/dL Total Bilirubin (0.2-1.3) mg/dL Alkaline Phosphatase (38-126) U/L Albumin (3.5-5.0) g/dL 08/29/24 08/29/24 08/29/24 Range/Units 12:32 14:39 15:52 WBC (3.8-10.6) k/uL RBC (4.30-5.90) m/uL Hgb (13.0-17.5) gm/dL Hct (39.0-53.0) % Plt Count (150-450) k/uL Neutrophils # (Manual) (1.3-7.7) k/uL Lymphocytes # (Manual) (1.0-4.8) k/uL Monocytes # (Manual) (0-1.0) k/uL Eosinophils # (Manual) (0-0.7) k/uL Metamyelocytes # (Man) (0) k/uL Myelocytes # (Manual) (0) k/uL Promyelocytes # (Man) (0) k/uL Nucleated RBCs (0-0) /100 WBC PT (10.0-12.5) sec INR (<1.2) APTT (22.0-30.0) sec Fibrinogen (200-500) mg/dL Sodium (137-145) mmol/L Carbon Dioxide (22-30) mmol/L BUN (9-20) mg/dL Creatinine (0.66-1.25) mg/dL Glucose (74-99) mg/dL POC Glucose (mg/dL) 60 L (70-110) mg/dL Plasma Lactic Acid Michael 10.4 H* 11.6 H* (0.7-2.0) mmol/L Uric Acid (3.5-8.5) mg/dL Calcium (8.4-10.2) mg/dL Total Bilirubin (0.2-1.3) mg/dL Alkaline Phosphatase (38-126) U/L Albumin (3.5-5.0) g/dL 08/29/24 08/29/24 08/29/24 Range/Units 19:06 21:38 23:04 WBC (3.8-10.6) k/uL RBC (4.30-5.90) m/uL Hgb (13.0-17.5) gm/dL Hct (39.0-53.0) % Plt Count (150-450) k/uL Neutrophils # (Manual) (1.3-7.7) k/uL Lymphocytes # (Manual) (1.0-4.8) k/uL Monocytes # (Manual) (0-1.0) k/uL Eosinophils # (Manual) (0-0.7) k/uL Metamyelocytes # (Man) (0) k/uL Myelocytes # (Manual) (0) k/uL Promyelocytes # (Man) (0) k/uL Nucleated RBCs (0-0) /100 WBC PT (10.0-12.5) sec INR (<1.2) APTT (22.0-30.0) sec Fibrinogen (200-500) mg/dL Sodium (137-145) mmol/L Carbon Dioxide (22-30) mmol/L BUN (9-20) mg/dL Creatinine (0.66-1.25) mg/dL Glucose (74-99) mg/dL POC Glucose (mg/dL) 57 L (70-110) mg/dL Plasma Lactic Acid Michael 8.2 H* 7.6 H* (0.7-2.0) mmol/L Uric Acid (3.5-8.5) mg/dL Calcium (8.4-10.2) mg/dL Total Bilirubin (0.2-1.3) mg/dL Alkaline Phosphatase (38-126) U/L Albumin (3.5-5.0) g/dL 08/30/24 08/30/24 08/30/24 Range/Units 02:54 02:54 02:54 WBC 99.6 H* (3.8-10.6) k/uL RBC 2.97 L (4.30-5.90) m/uL Hgb 9.6 L (13.0-17.5) gm/dL Hct 29.2 L (39.0-53.0) % Plt Count 39 L (150-450) k/uL Neutrophils # (Manual) 59.70 H (1.3-7.7) k/uL Lymphocytes # (Manual) 5.98 H (1.0-4.8) k/uL Monocytes # (Manual) 6.97 H (0-1.0) k/uL Eosinophils # (Manual) 17.93 H (0-0.7) k/uL Metamyelocytes # (Man) 1.00 H (0) k/uL Myelocytes # (Manual) 5.98 H (0) k/uL Promyelocytes # (Man) 1.99 H (0) k/uL Nucleated RBCs 3 H (0-0) /100 WBC PT 35.1 H (10.0-12.5) sec INR 3.5 H (<1.2) APTT 48.6 H (22.0-30.0) sec Fibrinogen 90 L (200-500) mg/dL Sodium 135 L (137-145) mmol/L Carbon Dioxide 13 L (22-30) mmol/L BUN 64 H (9-20) mg/dL Creatinine 3.13 H (0.66-1.25) mg/dL Glucose 33 L* (74-99) mg/dL POC Glucose (mg/dL) (70-110) mg/dL Plasma Lactic Acid Michael (0.7-2.0) mmol/L Uric Acid 8.8 H (3.5-8.5) mg/dL Calcium 8.2 L (8.4-10.2) mg/dL Total Bilirubin 2.3 H (0.2-1.3) mg/dL Alkaline Phosphatase 358 H (38-126) U/L Albumin <1.0 L (3.5-5.0) g/dL 08/30/24 08/30/24 08/30/24 Range/Units 04:14 04:16 06:10 WBC (3.8-10.6) k/uL RBC (4.30-5.90) m/uL Hgb (13.0-17.5) gm/dL Hct (39.0-53.0) % Plt Count (150-450) k/uL Neutrophils # (Manual) (1.3-7.7) k/uL Lymphocytes # (Manual) (1.0-4.8) k/uL Monocytes # (Manual) (0-1.0) k/uL Eosinophils # (Manual) (0-0.7) k/uL Metamyelocytes # (Man) (0) k/uL Myelocytes # (Manual) (0) k/uL Promyelocytes # (Man) (0) k/uL Nucleated RBCs (0-0) /100 WBC PT (10.0-12.5) sec INR (<1.2) APTT (22.0-30.0) sec Fibrinogen (200-500) mg/dL Sodium (137-145) mmol/L Carbon Dioxide (22-30) mmol/L BUN (9-20) mg/dL Creatinine (0.66-1.25) mg/dL Glucose (74-99) mg/dL POC Glucose (mg/dL) 44 L* 35 L* 60 L (70-110) mg/dL Plasma Lactic Acid Michael (0.7-2.0) mmol/L Uric Acid (3.5-8.5) mg/dL Calcium (8.4-10.2) mg/dL Total Bilirubin (0.2-1.3) mg/dL Alkaline Phosphatase (38-126) U/L Albumin (3.5-5.0) g/dL 08/30/24 Range/Units 06:26 WBC (3.8-10.6) k/uL RBC (4.30-5.90) m/uL Hgb (13.0-17.5) gm/dL Hct (39.0-53.0) % Plt Count (150-450) k/uL Neutrophils # (Manual) (1.3-7.7) k/uL Lymphocytes # (Manual) (1.0-4.8) k/uL Monocytes # (Manual) (0-1.0) k/uL Eosinophils # (Manual) (0-0.7) k/uL Metamyelocytes # (Man) (0) k/uL Myelocytes # (Manual) (0) k/uL Promyelocytes # (Man) (0) k/uL Nucleated RBCs (0-0) /100 WBC PT (10.0-12.5) sec INR (<1.2) APTT (22.0-30.0) sec Fibrinogen (200-500) mg/dL Sodium (137-145) mmol/L Carbon Dioxide (22-30) mmol/L BUN (9-20) mg/dL Creatinine (0.66-1.25) mg/dL Glucose (74-99) mg/dL POC Glucose (mg/dL) 118 H (70-110) mg/dL Plasma Lactic Acid Michael (0.7-2.0) mmol/L Uric Acid (3.5-8.5) mg/dL Calcium (8.4-10.2) mg/dL Total Bilirubin (0.2-1.3) mg/dL Alkaline Phosphatase (38-126) U/L Albumin (3.5-5.0) g/dL
[2024-08-30 15:10] LABS: Glucose,Whole Blood 94 mg/dL (70-110)
--- NOTE | 2024-08-30 15:19 | P.PN ---
Subjective Progress Note Date: 08/30/24 Pt remains in ICU. This morning during visit, pt was off of pressors. He was arousable upon tactile stimuli but only moaned. Pt blood pressure began to drop after our visit and became tachycardic and was restarted on pressors. Came back to room this afternoon to answer questions from spouse. Prognosis, goals of care, and comfort care measures were discussed Objective - Vital Signs Vital signs: Vital Signs Temp 100.8 F H 08/30/24 10:46 Pulse 125 H 08/30/24 10:46 Resp 23 08/30/24 10:46 BP 79/46 08/30/24 10:46 Pulse Ox 94 L 08/30/24 10:46 FiO2 Intake & Output 08/29/24 08/30/24 08/30/24 18:59 06:59 18:59 Intake Total 2741.265 2764.386 540.10 Output Total 170 75 33 Balance 2571.265 2689.386 507.10 Weight 73.482 kg 79.8 kg Intake: IV 1635 465 Dextrose 10% in Water 500 60 90 ml In Empty Bag 1 bag @ 30 mls/hr IV .[id number] BAN Rx#:[id number] Dextrose 5% in Water 1, 1375 375 000 ml @ 125 mls/hr IV . Q9H12M BAN with Sodium Bicarb (1 Meq/ml) 150 ml Rx#:[id number] Piperacillin-Tazobactam 3 200 .375 gm In Sodium Chloride 0.9% 100 ml @ 25 mls/hr IVPB Q8H BAN Rx#: [id number] Intake, IV Titration 2663.265 1129.386 2.10 Amount Dextrose 5% in Water 1, 375 000 ml @ 125 mls/hr IV . Q9H12M BAN with Sodium Bicarb (1 Meq/ml) 150 ml Rx#:[id number] Dextrose 5%-0.9% NaCl 1, 125 125 000 ml @ 125 mls/hr IV . Q8H BAN Rx#:[id number] Norepinephrine 4 mg In 163.265 4.386 2.10 Sodium Chloride 0.9% 250 ml @ 0.03 MCG/KG/MIN 8. 399 mls/hr IV .Q24H BAN Rx#:[id number] Sodium Chloride 0.9% 1, 1000 000 ml @ 999 mls/hr IV . Q1H1M ONE Rx#:[id number] Sodium Chloride 0.9% 1, 1000 1000 000 ml @ 999 mls/hr IV . Q1H1M ONE Rx#:[id number] Blood Product 78 73 Pooled Cryoprecipitate 78 Unit [id number] Pooled Cryoprecipitate 73 Unit [id number] Output: Urine 170 75 33 Other: Voiding Method Indwelling Catheter Indwelling Catheter - Constitutional General appearance: Present: no acute distress - Respiratory Details: breathing even and unlabored - Cardiovascular Details: tachycardic - Integumentary Integumentary: Absent: cyanotic - Neurologic Neurologic Comment(s): obtunded - Musculoskeletal Musculoskeletal: Present: generalized weakness - Labs CBC & Chem 7: 08/30/24 02:54 08/30/24 02:54 Labs: Abnormal Lab Results - Last 24 Hours (Table) 08/29/24 08/29/24 08/29/24 Range/Units 12:32 14:39 15:52 WBC (3.8-10.6) k/uL RBC (4.30-5.90) m/uL Hgb (13.0-17.5) gm/dL Hct (39.0-53.0) % Plt Count (150-450) k/uL Neutrophils # (Manual) (1.3-7.7) k/uL Lymphocytes # (Manual) (1.0-4.8) k/uL Monocytes # (Manual) (0-1.0) k/uL Eosinophils # (Manual) (0-0.7) k/uL Metamyelocytes # (Man) (0) k/uL Myelocytes # (Manual) (0) k/uL Promyelocytes # (Man) (0) k/uL Nucleated RBCs (0-0) /100 WBC PT (10.0-12.5) sec INR (<1.2) APTT (22.0-30.0) sec Fibrinogen (200-500) mg/dL Sodium (137-145) mmol/L Carbon Dioxide (22-30) mmol/L BUN (9-20) mg/dL Creatinine (0.66-1.25) mg/dL Glucose (74-99) mg/dL POC Glucose (mg/dL) 60 L (70-110) mg/dL Plasma Lactic Acid Michael 10.4 H* 11.6 H* (0.7-2.0) mmol/L Uric Acid (3.5-8.5) mg/dL Calcium (8.4-10.2) mg/dL Total Bilirubin (0.2-1.3) mg/dL Alkaline Phosphatase (38-126) U/L Albumin (3.5-5.0) g/dL 08/29/24 08/29/24 08/29/24 Range/Units 19:06 21:38 23:04 WBC (3.8-10.6) k/uL RBC (4.30-5.90) m/uL Hgb (13.0-17.5) gm/dL Hct (39.0-53.0) % Plt Count (150-450) k/uL Neutrophils # (Manual) (1.3-7.7) k/uL Lymphocytes # (Manual) (1.0-4.8) k/uL Monocytes # (Manual) (0-1.0) k/uL Eosinophils # (Manual) (0-0.7) k/uL Metamyelocytes # (Man) (0) k/uL Myelocytes # (Manual) (0) k/uL Promyelocytes # (Man) (0) k/uL Nucleated RBCs (0-0) /100 WBC PT (10.0-12.5) sec INR (<1.2) APTT (22.0-30.0) sec Fibrinogen (200-500) mg/dL Sodium (137-145) mmol/L Carbon Dioxide (22-30) mmol/L BUN (9-20) mg/dL Creatinine (0.66-1.25) mg/dL Glucose (74-99) mg/dL POC Glucose (mg/dL) 57 L (70-110) mg/dL Plasma Lactic Acid Michael 8.2 H* 7.6 H* (0.7-2.0) mmol/L Uric Acid (3.5-8.5) mg/dL Calcium (8.4-10.2) mg/dL Total Bilirubin (0.2-1.3) mg/dL Alkaline Phosphatase (38-126) U/L Albumin (3.5-5.0) g/dL 08/30/24 08/30/24 08/30/24 Range/Units 02:54 02:54 02:54 WBC 99.6 H* (3.8-10.6) k/uL RBC 2.97 L (4.30-5.90) m/uL Hgb 9.6 L (13.0-17.5) gm/dL Hct 29.2 L (39.0-53.0) % Plt Count 39 L (150-450) k/uL Neutrophils # (Manual) 59.70 H (1.3-7.7) k/uL Lymphocytes # (Manual) 5.98 H (1.0-4.8) k/uL Monocytes # (Manual) 6.97 H (0-1.0) k/uL Eosinophils # (Manual) 17.93 H (0-0.7) k/uL Metamyelocytes # (Man) 1.00 H (0) k/uL Myelocytes # (Manual) 5.98 H (0) k/uL Promyelocytes # (Man) 1.99 H (0) k/uL Nucleated RBCs 3 H (0-0) /100 WBC PT 35.1 H (10.0-12.5) sec INR 3.5 H (<1.2) APTT 48.6 H (22.0-30.0) sec Fibrinogen 90 L (200-500) mg/dL Sodium 135 L (137-145) mmol/L Carbon Dioxide 13 L (22-30) mmol/L BUN 64 H (9-20) mg/dL Creatinine 3.13 H (0.66-1.25) mg/dL Glucose 33 L* (74-99) mg/dL POC Glucose (mg/dL) (70-110) mg/dL Plasma Lactic Acid Michael (0.7-2.0) mmol/L Uric Acid 8.8 H (3.5-8.5) mg/dL Calcium 8.2 L (8.4-10.2) mg/dL Total Bilirubin 2.3 H (0.2-1.3) mg/dL Alkaline Phosphatase 358 H (38-126) U/L Albumin <1.0 L (3.5-5.0) g/dL 08/30/24 08/30/24 08/30/24 Range/Units 04:14 04:16 06:10 WBC (3.8-10.6) k/uL RBC (4.30-5.90) m/uL Hgb (13.0-17.5) gm/dL Hct (39.0-53.0) % Plt Count (150-450) k/uL Neutrophils # (Manual) (1.3-7.7) k/uL Lymphocytes # (Manual) (1.0-4.8) k/uL Monocytes # (Manual) (0-1.0) k/uL Eosinophils # (Manual) (0-0.7) k/uL Metamyelocytes # (Man) (0) k/uL Myelocytes # (Manual) (0) k/uL Promyelocytes # (Man) (0) k/uL Nucleated RBCs (0-0) /100 WBC PT (10.0-12.5) sec INR (<1.2) APTT (22.0-30.0) sec Fibrinogen (200-500) mg/dL Sodium (137-145) mmol/L Carbon Dioxide (22-30) mmol/L BUN (9-20) mg/dL Creatinine (0.66-1.25) mg/dL Glucose (74-99) mg/dL POC Glucose (mg/dL) 44 L* 35 L* 60 L (70-110) mg/dL Plasma Lactic Acid Michael (0.7-2.0) mmol/L Uric Acid (3.5-8.5) mg/dL Calcium (8.4-10.2) mg/dL Total Bilirubin (0.2-1.3) mg/dL Alkaline Phosphatase (38-126) U/L Albumin (3.5-5.0) g/dL 08/30/24 08/30/24 Range/Units 06:26 09:30 WBC (3.8-10.6) k/uL RBC (4.30-5.90) m/uL Hgb (13.0-17.5) gm/dL Hct (39.0-53.0) % Plt Count (150-450) k/uL Neutrophils # (Manual) (1.3-7.7) k/uL Lymphocytes # (Manual) (1.0-4.8) k/uL Monocytes # (Manual) (0-1.0) k/uL Eosinophils # (Manual) (0-0.7) k/uL Metamyelocytes # (Man) (0) k/uL Myelocytes # (Manual) (0) k/uL Promyelocytes # (Man) (0) k/uL Nucleated RBCs (0-0) /100 WBC PT (10.0-12.5) sec INR (<1.2) APTT (22.0-30.0) sec Fibrinogen (200-500) mg/dL Sodium (137-145) mmol/L Carbon Dioxide (22-30) mmol/L BUN (9-20) mg/dL Creatinine (0.66-1.25) mg/dL Glucose (74-99) mg/dL POC Glucose (mg/dL) 118 H 69 L (70-110) mg/dL Plasma Lactic Acid Michael (0.7-2.0) mmol/L Uric Acid (3.5-8.5) mg/dL Calcium (8.4-10.2) mg/dL Total Bilirubin (0.2-1.3) mg/dL Alkaline Phosphatase (38-126) U/L Albumin (3.5-5.0) g/dL Assessment and Plan (1) T-cell lymphoma Current Visit: Yes Status: Acute Priority: High Code(s): C85.90 - NON- HODGKIN LYMPHOMA, UNSPECIFIED, UNSPECIFIED SITE SNOMED Code(s): 018366936 (2) Altered mental status Current Visit: Yes Status: Acute Priority: High Code(s): R41.82 - ALTERED MENTAL STATUS, UNSPECIFIED SNOMED Code(s): 666318150 (3) Leukocytosis Current Visit: Yes Status: Acute Priority: High Code(s): D72.829 - ELEVATED WHITE BLOOD CELL COUNT, UNSPECIFIED SNOMED Code(s): 081232035 (4) Septic shock Current Visit: Yes Status: Acute Priority: High Code(s): A41.9 - SEPSIS, UNSPECIFIED ORGANISM; R65.21 - SEVERE SEPSIS WITH SEPTIC SHOCK SNOMED Code(s): 22689258 (5) Weakness Current Visit: Yes Status: Acute Priority: High Code(s): R53.1 - WEAKNESS SNOMED Code(s): 86879530 (6) Dehydration Current Visit: Yes Status: Acute Priority: High Code(s): E86.0 - DEHYDRATION SNOMED Code(s): 42908513 Plan: Confusion, weakness, sepsis: Presented with weakness, confusion and decreased oral intake. Recently discharged form [facility] and was supposed to f/u with his oncologist for concern of relapse of lymphoma -Lactic on admit 11.4, improved to 7.8. Pt hypotensive/tachycardic and has been restarted on levophed. Blood cultures negtive thus far. Fevers persisting. C ontinues IV abx started. -ID and pulm following T-cell lymphoma Significant history of T-cell lymphoma in 2019 and [address] Talbert at [facility]. Oncology history is limited but patient's states he received 2 cycles of CHOP but due to adverse effects treatment was stopped and then was switched to a different regimen which she is not aware of the name and patient has been in remission for the last 5 years. Patient was recently seen at [facility] and CT AP was obtained showing worsening upper abdominal mesenteric and retroperitoneal lymphadenopathy with splenomegaly and intervally new wedge-shaped hypodensities throughout the spleen. Patient was scheduled to follow-up with Dr. Talbert -Upon admit CT abdomen pelvis showing questionable right hilar lung mass and groundglass opacities in the right lung. Interval development of moderate hepatosplenomegaly. Small ascites. Diffuse urinary bladder wall thickening. CT chest ordered -WBC showing leukocytosis with WBC 110.3 with elevated myleocytes, metamyleocytes, promyleocytes, lymphocytes, eosinophils, and neutrophils with no blast cells noted upon reviewing peripheral smear. CBC today showing WBC 99.6, hgb9.6, plt 39 -Upon admit Uric acid was obtained, elevated at 12.9. Patient was given dose of Elitek for concern of TLS, with improvement in uric acid, 8.8 today. Kidney function worsening today, Nephrology following -Coags elevated, fibrinogen 88, concerning for possible DIC. S/p 1 dose cryoprecipitate. Repeat fibrinogen today 90, second dose cryoprecipitate ordered. Repeat DIC labs in the AM -Concern for relapse of his lymphoma, however will need to confirm diagnosis. LAD noted in left axilla and right groin. Ultrasounds have been ordered to further evaluate. Once pt more stable will try to obtain biopsy. Pt will likely need to be initiated on inpt chemo once stabilized. Awaiting records from his oncologist Dr. Talbert -Flow cytometry, cytogenetics, and FISH ordered, labs pending Had discussion with patient's spouse today regarding prognosis, goals of care, and comfort care measures. CODE status also discussed, she has made patient DNR. At this time, would like to see how pt does over the next 24-48hrs before making a decision on comfort care measures. Hospice informational session was placed. All questions and concerns were addressed Dr muir: I have seen and examined pt, performed H&P, developed impression and plan of care. Discussed with dictator. Agree with documentation, dictated as a scribe.
[2024-08-30] MEDS: ACETAMINOPHEN IV (For NPO) 1,000 MG in EMPTY BAG 1 BAG IVPB STA ×2 (16:40→19:52)
[2024-08-30 16:49] LABS: Glucose,Whole Blood 91 mg/dL (70-110)
[2024-08-30 20:27] LABS: Glucose,Whole Blood 72 mg/dL (70-110)
[2024-08-30 21:51] LABS: Glucose,Whole Blood 64 mg/dL (70-110)
[2024-08-30 22:13] LABS: Glucose,Whole Blood 116 mg/dL (70-110)
[2024-08-31 00:02] LABS: Glucose,Whole Blood 69 mg/dL (70-110)
[2024-08-31 00:27] LABS: Glucose,Whole Blood 98 mg/dL (70-110)
[2024-08-31 02:13] LABS: Glucose,Whole Blood 66 mg/dL (70-110)
[2024-08-31 02:41] LABS: Glucose,Whole Blood 83 mg/dL (70-110)
[2024-08-31 04:12] LABS: Glucose,Whole Blood 84 mg/dL (70-110)
[2024-08-31 06:15] LABS: Glucose,Whole Blood 57 mg/dL (70-110)
[2024-08-31 06:32] LABS: Glucose,Whole Blood 93 mg/dL (70-110)
[2024-08-31 06:47] LABS: HCT 29.9 % (39.0-53.0); HGB 9.6 gm/dL (13.0-17.5); Hypochromasia Marked; MCH 33.1 pg (25.0-35.0); MCHC 32.2 g/dL (31.0-37.0); MCV 102.7 fL (80.0-100.0); Macrocytosis Slight; Mean Platelet Volume 10.2; RBC 2.92 m/uL (4.30-5.90); RDW 14.2 % (11.5-15.5)
[2024-08-31 06:57] LABS: Albumin 1.7 g/dL (3.5-5.0); Alkaline Phosphatase 321 U/L (38-126); Anion Gap 28 mmol/L; Blood Urea Nitrogen 72 mg/dL (9-20); Calcium 7.6 mg/dL (8.4-10.2); Carbon Dioxide 12 mmol/L (22-30); Chloride 95 mmol/L (98-107); Phosphorus 3.7 mg/dL (2.5-4.5); Sodium 135 mmol/L (137-145); Total Bilirubin 2.1 mg/dL (0.2-1.3); Total Protein 6.3 g/dL (6.3-8.2); Uric Acid 10.1 mg/dL (3.5-8.5)
[2024-08-31 06:59] LABS: Partial Thromboplastin Time 60.8 sec (22.0-30.0); Prothrombin Time 39.9 sec (10.0-12.5)
[2024-08-31 07:03] LABS: African American GFR (CKD) 17 (>60 ml/min/1.73 sqM); Non-African American GFR(CKD) 15 (>60 ml/min/1.73 sqM)
[2024-08-31 07:14] LABS: ALT 36 U/L (4-49); AST 46 U/L (17-59); Glucose 42 mg/dL (74-99)
[2024-08-31 07:19] LABS: Platelet Count 27 k/uL (150-450)
--- NOTE | 2024-08-31 07:56 | P.PN ---
Subjective Progress Note Date: 08/30/24 Principal diagnosis: Reason for follow-up is sepsis Patient is a 69-year-old male with a past medical history significant for reflux lymphoma with recent admission at the [facility] with the patient was treated for abdominal pain has been diagnosed with a constipation CT abdominal pelvis done at that facility shows worsening lymphadenopathy possible splenic infarct and rectal distention patient been brought to this facility concerning for generalized weakness and fever at home with concern for sepsis patient has been admitted to hospital started on possible antibiotic. On today's evaluation that is 08/30/2024,the patient did spike a fever of 101 F patient is also tachycardic and hypotensive requiring some pressor support the patient remains to be lethargic unable to provide any history no vomiting or diarrhea has been reported. Patient did have a white count of 99.6 creatinine 3.13 cultures are currently pending Objective - Vital Signs Vital signs: Vital Signs Temp 100.8 F H 08/30/24 10:46 Pulse 125 H 08/30/24 10:46 Resp 23 08/30/24 10:46 BP 79/46 08/30/24 10:46 Pulse Ox 94 L 08/30/24 10:46 FiO2 Intake & Output 08/29/24 08/30/24 08/30/24 18:59 06:59 18:59 Intake Total 2741.265 2764.386 540.10 Output Total 170 75 33 Balance 2571.265 2689.386 507.10 Weight 73.482 kg 79.8 kg Intake: IV 1635 465 Dextrose 10% in Water 500 60 90 ml In Empty Bag 1 bag @ 30 mls/hr IV .[id number] [facility] Rx#:[id number] Dextrose 5% in Water 1, 1375 375 000 ml @ 125 mls/hr IV . Q9H12M [facility] with Sodium Bicarb (1 Meq/ml) 150 ml Rx#:[id number] Piperacillin-Tazobactam 3 200 .375 gm In Sodium Chloride 0.9% 100 ml @ 25 mls/hr IVPB Q8H [facility] Rx#: [id number] Intake, IV Titration 2663.265 1129.386 2.10 Amount Dextrose 5% in Water 1, 375 000 ml @ 125 mls/hr IV . Q9H12M [facility] with Sodium Bicarb (1 Meq/ml) 150 ml Rx#:[id number] Dextrose 5%-0.9% NaCl 1, 125 125 000 ml @ 125 mls/hr IV . Q8H [facility] Rx#:[id number] Norepinephrine 4 mg In 163.265 4.386 2.10 Sodium Chloride 0.9% 250 ml @ 0.03 MCG/KG/MIN 8. 399 mls/hr IV .Q24H [facility] Rx#:[id number] Sodium Chloride 0.9% 1, 1000 000 ml @ 999 mls/hr IV . Q1H1M [facility] Rx#:[id number] Sodium Chloride 0.9% 1, 1000 1000 000 ml @ 999 mls/hr IV . Q1H1M [facility] Rx#:[id number] Blood Product 78 73 Pooled Cryoprecipitate 78 Unit [id number] Pooled Cryoprecipitate 73 Unit [id number] Output: Urine 170 75 33 Other: Voiding Method Indwelling Catheter Indwelling Catheter - Exam GENERAL DESCRIPTION: An elderly male lying in bed in no distress RESPIRATORY SYSTEM: Unlabored breathing , decreased breath sounds at bases HEART: S1 S2 regular rate and rhythm , ABDOMEN: Soft , no tenderness EXTREMITIES: No edema feet - Labs CBC & Chem 7: 08/31/24 05:55 08/31/24 05:55 Labs: Abnormal Lab Results - Last 24 Hours (Table) 08/29/24 08/29/24 08/29/24 Range/Units 11:47 12:32 14:39 WBC (3.8-10.6) k/uL RBC (4.30-5.90) m/uL Hgb (13.0-17.5) gm/dL Hct (39.0-53.0) % Plt Count (150-450) k/uL Neutrophils # (Manual) (1.3-7.7) k/uL Lymphocytes # (Manual) (1.0-4.8) k/uL Monocytes # (Manual) (0-1.0) k/uL Eosinophils # (Manual) (0-0.7) k/uL Metamyelocytes # (Man) (0) k/uL Myelocytes # (Manual) (0) k/uL Promyelocytes # (Man) (0) k/uL Nucleated RBCs (0-0) /100 WBC PT (10.0-12.5) sec INR (<1.2) APTT (22.0-30.0) sec Fibrinogen (200-500) mg/dL Sodium (137-145) mmol/L Carbon Dioxide (22-30) mmol/L BUN (9-20) mg/dL Creatinine (0.66-1.25) mg/dL Glucose (74-99) mg/dL POC Glucose (mg/dL) 56 L 60 L (70-110) mg/dL Plasma Lactic Acid Michael 10.4 H* (0.7-2.0) mmol/L Uric Acid (3.5-8.5) mg/dL Calcium (8.4-10.2) mg/dL Total Bilirubin (0.2-1.3) mg/dL Alkaline Phosphatase (38-126) U/L Albumin (3.5-5.0) g/dL 08/29/24 08/29/24 08/29/24 Range/Units 15:52 19:06 21:38 WBC (3.8-10.6) k/uL RBC (4.30-5.90) m/uL Hgb (13.0-17.5) gm/dL Hct (39.0-53.0) % Plt Count (150-450) k/uL Neutrophils # (Manual) (1.3-7.7) k/uL Lymphocytes # (Manual) (1.0-4.8) k/uL Monocytes # (Manual) (0-1.0) k/uL Eosinophils # (Manual) (0-0.7) k/uL Metamyelocytes # (Man) (0) k/uL Myelocytes # (Manual) (0) k/uL Promyelocytes # (Man) (0) k/uL Nucleated RBCs (0-0) /100 WBC PT (10.0-12.5) sec INR (<1.2) APTT (22.0-30.0) sec Fibrinogen (200-500) mg/dL Sodium (137-145) mmol/L Carbon Dioxide (22-30) mmol/L BUN (9-20) mg/dL Creatinine (0.66-1.25) mg/dL Glucose (74-99) mg/dL POC Glucose (mg/dL) (70-110) mg/dL Plasma Lactic Acid Michael 11.6 H* 8.2 H* 7.6 H* (0.7-2.0) mmol/L Uric Acid (3.5-8.5) mg/dL Calcium (8.4-10.2) mg/dL Total Bilirubin (0.2-1.3) mg/dL Alkaline Phosphatase (38-126) U/L Albumin (3.5-5.0) g/dL 08/29/24 08/30/24 08/30/24 Range/Units 23:04 02:54 02:54 WBC 99.6 H* (3.8-10.6) k/uL RBC 2.97 L (4.30-5.90) m/uL Hgb 9.6 L (13.0-17.5) gm/dL Hct 29.2 L (39.0-53.0) % Plt Count 39 L (150-450) k/uL Neutrophils # (Manual) 59.70 H (1.3-7.7) k/uL Lymphocytes # (Manual) 5.98 H (1.0-4.8) k/uL Monocytes # (Manual) 6.97 H (0-1.0) k/uL Eosinophils # (Manual) 17.93 H (0-0.7) k/uL Metamyelocytes # (Man) 1.00 H (0) k/uL Myelocytes # (Manual) 5.98 H (0) k/uL Promyelocytes # (Man) 1.99 H (0) k/uL Nucleated RBCs 3 H (0-0) /100 WBC PT (10.0-12.5) sec INR (<1.2) APTT (22.0-30.0) sec Fibrinogen (200-500) mg/dL Sodium 135 L (137-145) mmol/L Carbon Dioxide 13 L (22-30) mmol/L BUN 64 H (9-20) mg/dL Creatinine 3.13 H (0.66-1.25) mg/dL Glucose 33 L* (74-99) mg/dL POC Glucose (mg/dL) 57 L (70-110) mg/dL Plasma Lactic Acid Michael (0.7-2.0) mmol/L Uric Acid 8.8 H (3.5-8.5) mg/dL Calcium 8.2 L (8.4-10.2) mg/dL Total Bilirubin 2.3 H (0.2-1.3) mg/dL Alkaline Phosphatase 358 H (38-126) U/L Albumin <1.0 L (3.5-5.0) g/dL 08/30/24 08/30/24 08/30/24 Range/Units 02:54 04:14 04:16 WBC (3.8-10.6) k/uL RBC (4.30-5.90) m/uL Hgb (13.0-17.5) gm/dL Hct (39.0-53.0) % Plt Count (150-450) k/uL Neutrophils # (Manual) (1.3-7.7) k/uL Lymphocytes # (Manual) (1.0-4.8) k/uL Monocytes # (Manual) (0-1.0) k/uL Eosinophils # (Manual) (0-0.7) k/uL Metamyelocytes # (Man) (0) k/uL Myelocytes # (Manual) (0) k/uL Promyelocytes # (Man) (0) k/uL Nucleated RBCs (0-0) /100 WBC PT 35.1 H (10.0-12.5) sec INR 3.5 H (<1.2) APTT 48.6 H (22.0-30.0) sec Fibrinogen 90 L (200-500) mg/dL Sodium (137-145) mmol/L Carbon Dioxide (22-30) mmol/L BUN (9-20) mg/dL Creatinine (0.66-1.25) mg/dL Glucose (74-99) mg/dL POC Glucose (mg/dL) 44 L* 35 L* (70-110) mg/dL Plasma Lactic Acid Michael (0.7-2.0) mmol/L Uric Acid (3.5-8.5) mg/dL Calcium (8.4-10.2) mg/dL Total Bilirubin (0.2-1.3) mg/dL Alkaline Phosphatase (38-126) U/L Albumin (3.5-5.0) g/dL 08/30/24 08/30/24 08/30/24 Range/Units 06:10 06:26 09:30 WBC (3.8-10.6) k/uL RBC (4.30-5.90) m/uL Hgb (13.0-17.5) gm/dL Hct (39.0-53.0) % Plt Count (150-450) k/uL Neutrophils # (Manual) (1.3-7.7) k/uL Lymphocytes # (Manual) (1.0-4.8) k/uL Monocytes # (Manual) (0-1.0) k/uL Eosinophils # (Manual) (0-0.7) k/uL Metamyelocytes # (Man) (0) k/uL Myelocytes # (Manual) (0) k/uL Promyelocytes # (Man) (0) k/uL Nucleated RBCs (0-0) /100 WBC PT (10.0-12.5) sec INR (<1.2) APTT (22.0-30.0) sec Fibrinogen (200-500) mg/dL Sodium (137-145) mmol/L Carbon Dioxide (22-30) mmol/L BUN (9-20) mg/dL Creatinine (0.66-1.25) mg/dL Glucose (74-99) mg/dL POC Glucose (mg/dL) 60 L 118 H 69 L (70-110) mg/dL Plasma Lactic Acid Michael (0.7-2.0) mmol/L Uric Acid (3.5-8.5) mg/dL Calcium (8.4-10.2) mg/dL Total Bilirubin (0.2-1.3) mg/dL Alkaline Phosphatase (38-126) U/L Albumin (3.5-5.0) g/dL Assessment and Plan (1) Leukocytosis Current Visit: Yes Status: Acute Priority: High Code(s): D72.829 - ELEVATED WHITE BLOOD CELL COUNT, UNSPECIFIED SNOMED Code(s): 658738216 (2) Septic shock Current Visit: Yes Status: Acute Priority: High Code(s): A41.9 - SEPSIS, UNSPECIFIED ORGANISM; R65.21 - SEVERE SEPSIS WITH SEPTIC SHOCK SNOMED Code(s): 98743889 Plan: 1patient presented hospital with sepsis in this patient who did have fever tachycardia concerning likely for an intra-abdominal as the patient did have abdominal distention as well as tenderness with recent CT done at [facility] was suggestive of rectal wall thickening in addition to the hepatosplenomegaly and possible splenic infarcts and need to cover for the enteric gram-negative with the likely pathogen both aerobes and anaerobes and a question of possible pneumonia 2patient with renal insufficiency high risk of nephrotoxicity from vancomycin 3patient is currently being treated with the Zosyn and Zyvox that will be continued while waiting for the culture to finalize prognosis remains to be guarded Dictation was produced using [employer] software. please excuse any grammatical, word or spelling errors. Time with Patient: Less than 30
[2024-08-31 08:07] LABS: Glucose,Whole Blood 64 mg/dL (70-110)
[2024-08-31 08:32] LABS: Glucose,Whole Blood 97 mg/dL (70-110)
--- NOTE | 2024-08-31 10:14 | P.PN ---
Subjective Patient is seen in follow-up for acute kidney injury. Renal function worsening. Oliguric. Remains acidotic despite being on bicarb drip. Poor historian. Vital signs are stable. Off vasopressors. General: Resting in bed. Cachectic appearing. HEENT: On nasal cannula. LUNGS: No audible rhonchi or wheezes. HEART: Tachycardic. ABDOMEN: No distention. EXTREMITITES: No edema. Objective - Vital Signs Vital signs: Vital Signs Temp 101.4 F H 08/31/24 08:00 Pulse 142 H 08/31/24 08:30 Resp 20 08/31/24 08:30 BP 96/58 08/31/24 08:30 Pulse Ox 93 L 08/31/24 09:59 FiO2 Intake & Output 08/30/24 08/31/24 08/31/24 18:59 06:59 18:59 Intake Total 3067.000 3604.026 210 Output Total 78 140 5 Balance 2989.000 3464.026 205 Weight 79.8 kg 83.8 kg Intake: IV 2740 3255 210 ACETAMINOPHEN IV (For NPO 100 ) 1,000 mg In Empty Bag 1 bag @ 400 mls/hr IVPB ONCE ST[facility] Rx#:[id number] Dextrose 10% in Water 500 540 780 60 ml In Empty Bag 1 bag @ 60 mls/hr IV .Q8H20M [facility] Rx#:[id number] Dextrose 5% in Water 1, 1725 1950 150 000 ml @ 150 mls/hr IV . Q7H40M [facility] with Sodium Bicarb (1 Meq/ml) 150 ml Rx#:[id number] Linezolid 600 mg In 300 300 Dextrose/Water 1 300ml. bag @ 150 mls/hr IVPB Q12HR@0000,1200 [facility] Rx#: [id number] Piperacillin-Tazobactam 3 75 225 .375 gm In Sodium Chloride 0.9% 100 ml @ 25 mls/hr IVPB Q8H [facility] Rx#: [id number] Intake, IV Titration 254.000 349.026 Amount Norepinephrine 4 mg In 254.000 349.026 Sodium Chloride 0.9% 250 ml @ 0.03 MCG/KG/MIN 8. 399 mls/hr IV .Q24H [facility] Rx#:[id number] Blood Product 73 Pooled Cryoprecipitate 73 Unit [id number] Output: Urine 78 140 5 Other: Voiding Method Indwelling Catheter Indwelling Catheter - Labs CBC & Chem 7: 08/31/24 05:55 08/31/24 05:55 Labs: Abnormal Lab Results - Last 24 Hours (Table) 08/30/24 08/30/24 08/30/24 Range/Units 12:01 21:50 22:12 WBC (3.8-10.6) k/uL RBC (4.30-5.90) m/uL Hgb (13.0-17.5) gm/dL Hct (39.0-53.0) % MCV (80.0-100.0) fL PT (10.0-12.5) sec INR (<1.2) APTT (22.0-30.0) sec Fibrinogen (200-500) mg/dL Sodium (137-145) mmol/L Chloride (98-107) mmol/L Carbon Dioxide (22-30) mmol/L BUN (9-20) mg/dL Creatinine (0.66-1.25) mg/dL Glucose (74-99) mg/dL POC Glucose (mg/dL) 47 L* 64 L 116 H (70-110) mg/dL Uric Acid (3.5-8.5) mg/dL Calcium (8.4-10.2) mg/dL Total Bilirubin (0.2-1.3) mg/dL Alkaline Phosphatase (38-126) U/L Albumin (3.5-5.0) g/dL 08/31/24 08/31/24 08/31/24 Range/Units 00:00 02:01 05:55 WBC 106.3 H* (3.8-10.6) k/uL RBC 2.92 L (4.30-5.90) m/uL Hgb 9.6 L (13.0-17.5) gm/dL Hct 29.9 L (39.0-53.0) % MCV 102.7 H (80.0-100.0) fL PT (10.0-12.5) sec INR (<1.2) APTT (22.0-30.0) sec Fibrinogen (200-500) mg/dL Sodium (137-145) mmol/L Chloride (98-107) mmol/L Carbon Dioxide (22-30) mmol/L BUN (9-20) mg/dL Creatinine (0.66-1.25) mg/dL Glucose (74-99) mg/dL POC Glucose (mg/dL) 69 L 66 L (70-110) mg/dL Uric Acid (3.5-8.5) mg/dL Calcium (8.4-10.2) mg/dL Total Bilirubin (0.2-1.3) mg/dL Alkaline Phosphatase (38-126) U/L Albumin (3.5-5.0) g/dL 08/31/24 08/31/24 08/31/24 Range/Units 05:55 05:55 06:13 WBC (3.8-10.6) k/uL RBC (4.30-5.90) m/uL Hgb (13.0-17.5) gm/dL Hct (39.0-53.0) % MCV (80.0-100.0) fL PT 39.9 H (10.0-12.5) sec INR 4.0 H (<1.2) APTT 60.8 H (22.0-30.0) sec Fibrinogen 80 L (200-500) mg/dL Sodium 135 L (137-145) mmol/L Chloride 95 L (98-107) mmol/L Carbon Dioxide 12 L (22-30) mmol/L BUN 72 H (9-20) mg/dL Creatinine 3.87 H (0.66-1.25) mg/dL Glucose 42 L* (74-99) mg/dL POC Glucose (mg/dL) 57 L (70-110) mg/dL Uric Acid 10.1 H (3.5-8.5) mg/dL Calcium 7.6 L (8.4-10.2) mg/dL Total Bilirubin 2.1 H (0.2-1.3) mg/dL Alkaline Phosphatase 321 H (38-126) U/L Albumin 1.7 L (3.5-5.0) g/dL 08/31/24 Range/Units 08:06 WBC (3.8-10.6) k/uL RBC (4.30-5.90) m/uL Hgb (13.0-17.5) gm/dL Hct (39.0-53.0) % MCV (80.0-100.0) fL PT (10.0-12.5) sec INR (<1.2) APTT (22.0-30.0) sec Fibrinogen (200-500) mg/dL Sodium (137-145) mmol/L Chloride (98-107) mmol/L Carbon Dioxide (22-30) mmol/L BUN (9-20) mg/dL Creatinine (0.66-1.25) mg/dL Glucose (74-99) mg/dL POC Glucose (mg/dL) 64 L (70-110) mg/dL Uric Acid (3.5-8.5) mg/dL Calcium (8.4-10.2) mg/dL Total Bilirubin (0.2-1.3) mg/dL Alkaline Phosphatase (38-126) U/L Albumin (3.5-5.0) g/dL Microbiology - Last 24 Hours (Table) 08/29/24 18:12 Nasal Screen MRSA/MSSA - Final Nasal Swab 08/29/24 01:16 Blood Culture - Preliminary Blood Assessment and Plan Plan: Assessment: 1. Acute kidney injury secondary to ATN secondary to septic shock. Questionable tumor lysis syndrome with uric acid 12.9 on admission status post rasburicase. No evidence of hyperkalemia or hyperphosphatemia. Creatinine 0.5 in January 2024. Creatinine up to 3.87 today. Oliguric. No hydronephrosis noted on CAT scan. 2. Septic shock currently on Levophed. Concern for DIC. 3. Metabolic acidosis secondary to acute kidney injury and IV fluids. On bicarb drip. 4. T-cell lymphoma. Oncology following. 5. Hypovolemic hyponatremia improved with IV fluids. Plan: Maintain bicarb drip. Repeat 4 A bicarb IV push today. Avoid nephrotoxins. Continue to monitor renal function and urine output. Family meeting this afternoon to discuss hospice. Prognosis guarded. If not proceeding with hospice, will initiate renal replacement therapy.
[2024-08-31] MEDS: ACETAMINOPHEN IV (For NPO) 1,000 MG in EMPTY BAG 1 BAG IVPB STA (10:21)
[2024-08-31] MEDS: SODIUM BICARB 8.4% 50 ML SYR (1 MEQ/ML) IV STA (10:22)
[2024-08-31 10:24] LABS: Glucose,Whole Blood 69 mg/dL (70-110)
[2024-08-31 10:43] LABS: Band Neutrophils % 9 %; Metamyelocytes % 1 %; Myelocytes % 2 %; Neutrophils % (M) 26 %; Nucleated Red Blood Cells 7 /100 WBC (0-0); Total Cells Counted 300
[2024-08-31 10:46] LABS: Glucose,Whole Blood 92 mg/dL (70-110)
[2024-08-31 10:49] LABS: Eosinophils # (M) 36.74 k/uL (0-0.7); Lymphocytes # (M) 16.88 k/uL (1.0-4.8); Metamyelocytes # (M) 0.99 k/uL (0); Monocytes # (M) 6.95 k/uL (0-1.0); Myelocytes # (M) 1.99 k/uL (0); WBC 99.3 k/uL (3.8-10.6)
[2024-08-31 11:25] VITALS: BMI 22.4
--- NOTE | 2024-08-31 11:56 | P.PN ---
Subjective Progress Note Date: 08/31/24 Hospital Course: Patient is a 69-year-old male with past medical history significant for T-cell, congestive heart failure, GERD who presented to the ER for altered mental status and fever of unknown origin. Patient's is at the bedside and provides most of the history. states that he had recent hospital admission at [facility] went home but then on Tuesday he was not drinking or eating well. She states that he steadily declined over the weekend and became increasingly confused and had concerns of dehydration. 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 López from [facility]. She states his last chemotherapy session was in [address] showed spleen mets. She states he was endorsing abdominal pain. She denies any nausea, vomiting, or diarrhea. ED documentation reviewed. In the ED patient was treated with 3 L bolus of 0.9% NS and started on Levophed for hypotension. Vitals on admission Temperature 97.7 F, heart rate 122, respiratory rate 20, blood pressure 111/75, O2 saturation 100% on room air EKG independently interpreted as sinus tachycardia with rate 117 and QTc of 459 ms CXR shows chronic changes without acute peripheral pulmonary infiltrates CT of abdomen pelvis shows questionable right hilar lung mass and groundglass opacities in the right lung. Small ascites, stable compression fractures in upper lumbar spine, moderate hiatal hernia, diffusely thickened bladder wall Labs on admission show WBCs one 1011.7 platelets 81. PTT 40.4, INR4.1, PTT 35.2. Sodium 129, potassium 4.8, chloride 97, bicarb 17, BUN 57, creatinine 2.41, glucose 76. Lactate 7.7. Uric acid 11.3. ALP 327. UA shows dark brown, cloudy urine. Viral 4 Plex is negative. 08/30/2024 Patient seen and examined at bedside in intensive care unit. Patient's pressure continues to remain low despite vasopressors. He had a few episodes of hypoglycemia overnight and received a few amps of dextrose. Patient's urine output is between 5 to 10 cc/h. 08/31/24 Patient seen and examined at bedside in intensive care unit. Patient was febrile this morning with a temperature of 101.4 F. Patient's pressures continue to remain low despite vasopressors. Continues to have results of hypo glycemia and received a few amps of dextrose. His D10 was increased today to 80 mL/h. Patient's urine output is 5 cc or less per hour. Patient's prognosis is guarded. Hematology oncology will have discussion with next of kin regarding hospice later today. Pertinent positives and negatives discussed above, a complete review of systems was performed and all the other systems were negative. Vitals Signs Reviewed. GENERAL EXAM: Obtunded, occasionally cries out in pain, hypotensive, tachycardic HEAD: Normocephalic and atraumatic EYES: Normal reaction of pupils, equal size. NOSE: Clear with pink turbinates. THROAT: No erythema or exudates. Dry mucous membranes. NECK: No masses, no JVD. CHEST: No chest wall deformity. LUNGS: Equal air entry with no crackles, wheeze, rhonchi or dullness. Room air CVS: S1 and S2 normal with no audible murmur, regular rhythm. No extra heart sounds ABDOMEN: No hepatosplenomegaly, active bowel sounds, no guarding or rigidity. SPINE: No scoliosis or deformity SKIN: No rashes CENTRAL NERVOUS SYSTEM: No focal deficits, tone is normal in all 4 extremities. EXTREMITIES: There is bipedal edema. No clubbing or cyanosis. Peripheral pulses are weak but palpable. LYMPH: Lymphadenopathy in the left axilla and right groin Data Reviewed Today: Patient Labs: WBCs 106, hemoglobin 9.6. PT 39.9, INR 4, PTT 60.8, fibrinogen 80. Sodium 135, potassium 4, chloride 95, bicarb 12, BUN 72, creatinine 3.87, glucose 42. Uric acid 10.1, calcium 7.6. Imaging: Axilla ultrasound shows abnormal lymph nodes: Reactive inflammatory and/or infectious etiology Groin ultrasound shows reactive adenopathy: Underlying infectious and/or inflammatory Echocardiogram shows EF of 30 to 35% Assessment and Plan: Suspected septic shock without known source of infection History of lymphoma, no longer in remission, not on chemotherapy Possible tumor lysis syndrome Metabolic acidosis secondary to NARGIS Hypoglycemia Continue Zosyn and linezolid Continue Levophed Continue D10 water with sodium bicarb 125 mL/h Continue Ofirmev for for fevers Follow-up blood cultures MRSA swab was negative Echocardiogram findings listed above ICU management Consulted heme-onc Consulted nephrology IR consulted for biopsy of groin or axillary lymph nodes, not large enough to biopsy at this time GERD Continue Protonix 20 mg IV twice daily The patient is admitted with an anticipated more than 2 midnight stay for evaluation of suspected septic shock, possible tumor lysis syndrome CODE STATUS: No code Discussed with: Patient's Objective - Vital Signs Vital signs: Vital Signs Temp 98.5 F 08/31/24 04:00 Pulse 142 H 08/31/24 07:00 Resp 18 08/31/24 07:00 BP 109/62 08/31/24 07:00 Pulse Ox 92 L 08/31/24 07:00 FiO2 Intake & Output 08/30/24 08/31/24 08/31/24 18:59 06:59 18:59 Intake Total 3067.000 3604.026 Output Total 78 140 Balance 2989.000 3464.026 Weight 79.8 kg 83.8 kg Intake: IV 2740 3255 ACETAMINOPHEN IV (For NPO 100 ) 1,000 mg In Empty Bag 1 bag @ 400 mls/hr IVPB ONCE STA Rx#:[id number] Dextrose 10% in Water 500 540 780 ml In Empty Bag 1 bag @ 60 mls/hr IV .Q8H20M [facility] Rx#:[id number] Dextrose 5% in Water 1, 1725 1950 000 ml @ 150 mls/hr IV . Q7H40M [facility] with Sodium Bicarb (1 Meq/ml) 150 ml Rx#:[id number] Linezolid 600 mg In 300 300 Dextrose/Water 1 300ml. bag @ 150 mls/hr IVPB Q12HR@0000,1200 [facility] Rx#: [id number] Piperacillin-Tazobactam 3 75 225 .375 gm In Sodium Chloride 0.9% 100 ml @ 25 mls/hr IVPB Q8H [facility] Rx#: [id number] Intake, IV Titration 254.000 349.026 Amount Norepinephrine 4 mg In 254.000 349.026 Sodium Chloride 0.9% 250 ml @ 0.03 MCG/KG/MIN 8. 399 mls/hr IV .Q24H [facility] Rx#:[id number] Blood Product 73 Pooled Cryoprecipitate 73 Unit [id number] Output: Urine 78 140 Other: Voiding Method Indwelling Catheter Indwelling Catheter - Labs CBC & Chem 7: 08/31/24 05:55 08/31/24 10:38 Labs: Abnormal Lab Results - Last 24 Hours (Table) 02/08/30/24 08/30/24 Range/Units 09:30 12:01 21:50 WBC (3.8-10.6) k/uL RBC (4.30-5.90) m/uL Hgb (13.0-17.5) gm/dL Hct (39.0-53.0) % MCV (80.0-100.0) fL PT (10.0-12.5) sec INR (<1.2) APTT (22.0-30.0) sec Fibrinogen (200-500) mg/dL Sodium (137-145) mmol/L Chloride (98-107) mmol/L Carbon Dioxide (22-30) mmol/L BUN (9-20) mg/dL Creatinine (0.66-1.25) mg/dL Glucose (74-99) mg/dL POC Glucose (mg/dL) 69 L 47 L* 64 L (70-110) mg/dL Uric Acid (3.5-8.5) mg/dL Calcium (8.4-10.2) mg/dL Total Bilirubin (0.2-1.3) mg/dL Alkaline Phosphatase (38-126) U/L Albumin (3.5-5.0) g/dL 08/30/24 08/31/24 08/31/24 Range/Units 22:12 00:00 02:01 WBC (3.8-10.6) k/uL RBC (4.30-5.90) m/uL Hgb (13.0-17.5) gm/dL Hct (39.0-53.0) % MCV (80.0-100.0) fL PT (10.0-12.5) sec INR (<1.2) APTT (22.0-30.0) sec Fibrinogen (200-500) mg/dL Sodium (137-145) mmol/L Chloride (98-107) mmol/L Carbon Dioxide (22-30) mmol/L BUN (9-20) mg/dL Creatinine (0.66-1.25) mg/dL Glucose (74-99) mg/dL POC Glucose (mg/dL) 116 H 69 L 66 L (70-110) mg/dL Uric Acid (3.5-8.5) mg/dL Calcium (8.4-10.2) mg/dL Total Bilirubin (0.2-1.3) mg/dL Alkaline Phosphatase (38-126) U/L Albumin (3.5-5.0) g/dL 08/31/24 08/31/24 08/31/24 Range/Units 05:55 05:55 05:55 WBC 106.3 H* (3.8-10.6) k/uL RBC 2.92 L (4.30-5.90) m/uL Hgb 9.6 L (13.0-17.5) gm/dL Hct 29.9 L (39.0-53.0) % MCV 102.7 H (80.0-100.0) fL PT 39.9 H (10.0-12.5) sec INR 4.0 H (<1.2) APTT 60.8 H (22.0-30.0) sec Fibrinogen 80 L (200-500) mg/dL Sodium 135 L (137-145) mmol/L Chloride 95 L (98-107) mmol/L Carbon Dioxide 12 L (22-30) mmol/L BUN 72 H (9-20) mg/dL Creatinine 3.87 H (0.66-1.25) mg/dL Glucose 42 L* (74-99) mg/dL POC Glucose (mg/dL) (70-110) mg/dL Uric Acid 10.1 H (3.5-8.5) mg/dL Calcium 7.6 L (8.4-10.2) mg/dL Total Bilirubin 2.1 H (0.2-1.3) mg/dL Alkaline Phosphatase 321 H (38-126) U/L Albumin 1.7 L (3.5-5.0) g/dL 08/31/24 Range/Units 06:13 WBC (3.8-10.6) k/uL RBC (4.30-5.90) m/uL Hgb (13.0-17.5) gm/dL Hct (39.0-53.0) % MCV (80.0-100.0) fL PT (10.0-12.5) sec INR (<1.2) APTT (22.0-30.0) sec Fibrinogen (200-500) mg/dL Sodium (137-145) mmol/L Chloride (98-107) mmol/L Carbon Dioxide (22-30) mmol/L BUN (9-20) mg/dL Creatinine (0.66-1.25) mg/dL Glucose (74-99) mg/dL POC Glucose (mg/dL) 57 L (70-110) mg/dL Uric Acid (3.5-8.5) mg/dL Calcium (8.4-10.2) mg/dL Total Bilirubin (0.2-1.3) mg/dL Alkaline Phosphatase (38-126) U/L Albumin (3.5-5.0) g/dL Microbiology - Last 24 Hours (Table) 08/29/24 01:16 Blood Culture - Preliminary Blood
[2024-08-31 12:01] LABS: Toxic Vacuolation Present
[2024-08-31 12:02] LABS: Glucose,Whole Blood 61 mg/dL (70-110)
[2024-08-31 13:19] VITALS: TEMP 100.5
--- NOTE | 2024-08-31 14:08 | P.PN ---
Subjective Progress Note Date: 08/31/24 Principal diagnosis: Sepsis and septic shock in the setting of lymphoma and possible tumor lysis syndrome with coagulopathy Critical care consult placed following rapid response that was called early this morning in the emergency department. Patient was hypotensive, tachycardic, tachypneic, febrile. Sepsis workup is underway. Patient is a 69-year-old male with past medical history significant for lymphoma, congestive heart failure, ventral hernia repair, GERD, among other things. Patient originally brought in for fever of unknown origin and AMS. He cannot provide information for HPI, and family are not present. Workup in the emergency department including including a CT of the brain unremarkable for any acute intracranial process. CT of the abdomen/pelvis which showed a questionable right hilar lung mass and groundglass opacity in the right lung. Development of moderate hepatosplenomegaly, compression fractures noted on lumbar spine, reportedly stable. Moderate hiatal hernia. Questionable use urinary bladder wall thickening. Chest x-ray showing a prominent right hilum. No other acute cardiopulmonary process noted. CBC with a WBC count of 96.3, hemoglobin 10.7, platelets 75. CMP: Sodium 130, potassium 4.8, chloride 99, serum bicarb 13, anion gap 18, BUN 61, creatinine 2.29, glucose 58. AST 61, ALT 38, ALP 345. Total bili 2.1. Uric acid level 10.1. Lactic was as high as 11.4, and remains high most recently 7.8. Patient was febrile with a Tmax of 100.4 F. Viral screen negative for influenza RSV, COVID. Patient did receive a one-time dose of Rocephin. Urinalysis unremarkable for infection. Blood cultures are pending. I am currently neema luating this patient in the emergency department room 21. Obtunded, occasionally crying out. Does not follow any commands. Blood pressure 76/57 mmHg. Remains tachycardic with a rate of 133 bpm. Patient has already received 2 L fluid bolus. D5 W with normal saline is infusing at 125 mL/h. He is receiving an additional 1 L normal saline bolus. May require vasopressor support. Recommending transfer to the intensive care unit. Patient was seen today on 08/30/2024, remains in the ICU, remains extremely frail, blood pressure is marginal, patient was on norepinephrine overnight, today this was discontinued and blood pressure seems to be holding. Patient remains on sodium bicarb drip, he required placement on D10 for low blood sugar earlier today. Patient received a total of 3-1/2 L of fluids, and he continues to have fluid running at 150 cc/h. Patient is on antibiotics empirically in the form of Zosyn and Zyvox. He received cryoprecipitate yesterday, and he also received Rasburicase. Blood pressure remains soft, patient is extremely frail, seems to be confused, and gets agitated easily. Patient is being followed by many consultants, nephrology was also consulted because of his acute kidney injury. Labs today are quite abnormal continues to have leukocytosis with WC count of 99.6 hemoglobin is 9.6 platelets are 39,000's. PTT is 35 INR is 3.5 fibrinogen is low this is a picture of DIC. Patient received cryoprecipitate earlier by oncology. Electrolytes are normal however his bicarb is 13 BUN is 64 and creatinine is 3.13 which has been steadily rising since admission obviously the patient developed acute kidney injury. Liver enzymes were noted, alkaline phosphatase is 358 and his albumin today is less than 1. CT of the chest was reviewed, there is no evidence of mass but the patient did have some fullness in the right hilum appeared to be mostly pulmonary vascular in nature. Patient was seen today on 08/31/2024, patient remains in the ICU, quite ill, hemodynamically unstable requiring norepinephrine at 0.25 mcg/kg/min still requiring significant amount of bicarb remains on D10 at 80 cc/h because of episodes of hypoglycemia continues to have low platelets, elevated INR, low bicarb, and relatively elevated PTT and low fibrinogen. He remains on Zyvox and Zosyn. Patient is confused, obtunded, CODE STATUS has been changed to DNR, and likely the patient will go to comfort care measures. Overall clinical picture does not look very promising. Patient was febrile this morning with a temp of 101.4 patient is requiring more pressors continues to have hypoglycemia and running D10 at this point. His urine output is extremely poor less than 5 cc/h, oncology staff does not seem to be optimistic about the overall prognosis. Hence may discuss comfort care measures with the and I think that would be very appropriate. WBC count is 99.3 hemoglobin 9.6 platelets are 27,000's, pro time remains elevated at 4.0 INR, PTT is 61 and fibrinogen is 80. BUN is up to 72 creatinine is up to 3.87 patient is receiving more bicarb by nephrology. Objective - Vital Signs Vital signs: Vital Signs Temp 100.5 F H 08/31/24 12:00 Pulse 134 H 08/31/24 13:15 Resp 17 08/31/24 13:15 BP 102/66 08/31/24 13:15 Pulse Ox 90 L 08/31/24 13:15 FiO2 Intake & Output 08/30/24 08/31/24 08/31/24 18:59 06:59 18:59 Intake Total 3067.000 3719.442 1360 Output Total 78 140 7 Balance 2989.000 3579.442 1353 Weight 79.8 kg 83.8 kg 83.8 kg Intake: IV 2740 3255 1360 ACETAMINOPHEN IV (For NPO 100 ) 1,000 mg In Empty Bag 1 bag @ 400 mls/hr IVPB ONCE STA Rx#:[id number] Dextrose 10% in Water 500 540 780 460 ml In Empty Bag 1 bag @ 80 mls/hr IV .Q6H15M BAN Rx#:[id number] Dextrose 5% in Water 1, 1725 1950 900 000 ml @ 150 mls/hr IV . Q7H40M BAN with Sodium Bicarb (1 Meq/ml) 150 ml Rx#:[id number] Linezolid 600 mg In 300 300 Dextrose/Water 1 300ml. bag @ 150 mls/hr IVPB Q12HR@0000,1200 [facility] Rx#: [id number] Piperacillin-Tazobactam 3 75 225 .375 gm In Sodium Chloride 0.9% 100 ml @ 25 mls/hr IVPB Q8H [facility] Rx#: [id number] Intake, IV Titration 254.000 464.442 Amount Norepinephrine 4 mg In 254.000 464.442 Sodium Chloride 0.9% 250 ml @ 0.03 MCG/KG/MIN 8. 399 mls/hr IV .Q24H [facility] Rx#:[id number] Blood Product 73 Pooled Cryoprecipitate 73 Unit [id number] Output: Urine 78 140 7 Other: Voiding Method Indwelling Catheter Indwelling Catheter - Exam GENERAL EXAM: 69-year-old white male extremely frail, obtunded, confused, slightly more tachypneic today HEAD: Normocephalic and atraumatic EYES: Normal reaction of pupils, equal size. NOSE: Clear with pink turbinates. THROAT: No erythema or exudates. Dry mucous membranes. NECK: No masses, no JVD. CHEST: No chest wall deformity. LUNGS: Equal air entry with no crackles, wheeze, rhonchi or dullness. On 2 L/min nasal cannula. CVS: S1 and S2 normal with no audible murmur, regular rhythm. No extra heart sounds ABDOMEN: No hepatosplenomegaly, active bowel sounds, no guarding or rigidity. SKIN: No rashes CENTRAL NERVOUS SYSTEM: Confused, profoundly weak, unable to assess. EXTREMITIES: No clubbing edema or cyanosis. - Labs CBC & Chem 7: 08/31/24 05:55 08/31/24 10:38 Labs: Abnormal Lab Results - Last 24 Hours (Table) 08/30/24 08/30/24 08/31/24 Range/Units 21:50 22:12 00:00 WBC (3.8-10.6) k/uL RBC (4.30-5.90) m/uL Hgb (13.0-17.5) gm/dL Hct (39.0-53.0) % MCV (80.0-100.0) fL Plt Count (150-450) k/uL Neutrophils # (Manual) (1.3-7.7) k/uL Lymphocytes # (Manual) (1.0-4.8) k/uL Monocytes # (Manual) (0-1.0) k/uL Eosinophils # (Manual) (0-0.7) k/uL Metamyelocytes # (Man) (0) k/uL Myelocytes # (Manual) (0) k/uL Nucleated RBCs (0-0) /100 WBC PT (10.0-12.5) sec INR (<1.2) APTT (22.0-30.0) sec Fibrinogen (200-500) mg/dL Sodium (137-145) mmol/L Chloride (98-107) mmol/L Carbon Dioxide (22-30) mmol/L BUN (9-20) mg/dL Creatinine (0.66-1.25) mg/dL Glucose (74-99) mg/dL POC Glucose (mg/dL) 64 L 116 H 69 L (70-110) mg/dL Uric Acid (3.5-8.5) mg/dL Calcium (8.4-10.2) mg/dL Total Bilirubin (0.2-1.3) mg/dL Alkaline Phosphatase (38-126) U/L Albumin (3.5-5.0) g/dL 08/31/24 08/31/24 08/31/24 Range/Units 02:01 05:55 05:55 WBC 99.3 H* (3.8-10.6) k/uL RBC 2.92 L (4.30-5.90) m/uL Hgb 9.6 L (13.0-17.5) gm/dL Hct 29.9 L (39.0-53.0) % MCV 102.7 H (80.0-100.0) fL Plt Count 27 L (150-450) k/uL Neutrophils # (Manual) 34.70 H (1.3-7.7) k/uL Lymphocytes # (Manual) 16.88 H (1.0-4.8) k/uL Monocytes # (Manual) 6.95 H (0-1.0) k/uL Eosinophils # (Manual) 36.74 H (0-0.7) k/uL Metamyelocytes # (Man) 0.99 H (0) k/uL Myelocytes # (Manual) 1.99 H (0) k/uL Nucleated RBCs 7 H (0-0) /100 WBC PT (10.0-12.5) sec INR (<1.2) APTT (22.0-30.0) sec Fibrinogen (200-500) mg/dL Sodium 135 L (137-145) mmol/L Chloride 95 L (98-107) mmol/L Carbon Dioxide 12 L (22-30) mmol/L BUN 72 H (9-20) mg/dL Creatinine 3.87 H (0.66-1.25) mg/dL Glucose 42 L* (74-99) mg/dL POC Glucose (mg/dL) 66 L (70-110) mg/dL Uric Acid 10.1 H (3.5-8.5) mg/dL Calcium 7.6 L (8.4-10.2) mg/dL Total Bilirubin 2.1 H (0.2-1.3) mg/dL Alkaline Phosphatase 321 H (38-126) U/L Albumin 1.7 L (3.5-5.0) g/dL 08/31/24 08/31/24 08/31/24 Range/Units 05:55 06:13 08:06 WBC (3.8-10.6) k/uL RBC (4.30-5.90) m/uL Hgb (13.0-17.5) gm/dL Hct (39.0-53.0) % MCV (80.0-100.0) fL Plt Count (150-450) k/uL Neutrophils # (Manual) (1.3-7.7) k/uL Lymphocytes # (Manual) (1.0-4.8) k/uL Monocytes # (Manual) (0-1.0) k/uL Eosinophils # (Manual) (0-0.7) k/uL Metamyelocytes # (Man) (0) k/uL Myelocytes # (Manual) (0) k/uL Nucleated RBCs (0-0) /100 WBC PT 39.9 H (10.0-12.5) sec INR 4.0 H (<1.2) APTT 60.8 H (22.0-30.0) sec Fibrinogen 80 L (200-500) mg/dL Sodium (137-145) mmol/L Chloride (98-107) mmol/L Carbon Dioxide (22-30) mmol/L BUN (9-20) mg/dL Creatinine (0.66-1.25) mg/dL Glucose (74-99) mg/dL POC Glucose (mg/dL) 57 L 64 L (70-110) mg/dL Uric Acid (3.5-8.5) mg/dL Calcium (8.4-10.2) mg/dL Total Bilirubin (0.2-1.3) mg/dL Alkaline Phosphatase (38-126) U/L Albumin (3.5-5.0) g/dL 08/31/24 08/31/24 Range/Units 10:22 12:00 WBC (3.8-10.6) k/uL RBC (4.30-5.90) m/uL Hgb (13.0-17.5) gm/dL Hct (39.0-53.0) % MCV (80.0-100.0) fL Plt Count (150-450) k/uL Neutrophils # (Manual) (1.3-7.7) k/uL Lymphocytes # (Manual) (1.0-4.8) k/uL Monocytes # (Manual) (0-1.0) k/uL Eosinophils # (Manual) (0-0.7) k/uL Metamyelocytes # (Man) (0) k/uL Myelocytes # (Manual) (0) k/uL Nucleated RBCs (0-0) /100 WBC PT (10.0-12.5) sec INR (<1.2) APTT (22.0-30.0) sec Fibrinogen (200-500) mg/dL Sodium (137-145) mmol/L Chloride (98-107) mmol/L Carbon Dioxide (22-30) mmol/L BUN (9-20) mg/dL Creatinine (0.66-1.25) mg/dL Glucose (74-99) mg/dL POC Glucose (mg/dL) 69 L 61 L (70-110) mg/dL Uric Acid (3.5-8.5) mg/dL Calcium (8.4-10.2) mg/dL Total Bilirubin (0.2-1.3) mg/dL Alkaline Phosphatase (38-126) U/L Albumin (3.5-5.0) g/dL Microbiology - Last 24 Hours (Table) 08/29/24 01:16 Blood Culture - Preliminary Blood 08/29/24 18:12 Nasal Screen MRSA/MSSA - Final Nasal Swab Assessment and Plan Assessment: Impression: Sepsis and 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, tumor lysis syndrome, DIC, thrombocytopenia and anemia with leukocytosis and splenomegaly Hypotension and shock, suspect septic shock Severe anion gap metabolic acidosis and lactic acidosis Acute leukocytosis Bicytopenia with thrombocytopenia and anemia Hyperuricemia, on rasburicase Acute kidney injury, secondary to hypotension and ATN Acute toxic metabolic encephalopathy Hypoglycemia Hyponatremia Coagulopathy Hepatosplenomegaly History of heart failure with reduced ejection fraction, most recent echocardiogram from January, estimating a left ventricular ejection fraction of 35 to 40%, without any significant valvular abnormalities reported. History of GERD Moderate hiatel hernia History of ventral hernia repair Compression fractures of the lumbar spine, reportedly stable Recommendation: Continue broad-spectrum antibiotics, Zosyn and Zyvox Continue IV fluids Continue bicarb Continue norepinephrine, check serum cortisol level Solu-Cortef after serum cortisol level drawn Continue rasburicase, as per oncology Continue cryoprecipitate as per oncology Continue to monitor closely electrolytes and renal profile Continue GI and DVT prophylaxis Continue D10 for hypoglycemia, check serum cortisol level Continue close follow-up in the ICU and close follow-up on his pulmonary status Considering the overall picture, I strongly recommend comfort care measures, this will be addressed by oncology with the today. Patient is critically ill with multiple complex medical issues as noted above Critical care time is 33 minutes Time with Patient: Greater than 30
[2024-08-31 14:30] LABS: Glucose,Whole Blood 74 mg/dL (70-110)
[2024-08-31 14:47] VITALS: PULSE 129
[2024-08-31 15:01] VITALS: BP 75/48; RESP 24
--- NOTE | 2024-08-31 15:51 | P.DS ---
Providers Date of admission: 08/28/24 15:50 Expected date of discharge: 08/31/24 Attending physician: Luis Carlos Allan Consults: 08/28/24 18:01 Consult Physician Routine Consulting Provider: Sienna Zapien Consult Reason/Comments: leukocytosis, hx leukemia Do you want consulting provider notified?: Already Contacted 08/29/24 05:08 Consult Physician Urgent Consulting Provider: Sheyla Arriaga Consult Reason/Comments: Sepsis/unknown origin Do you want consulting provider notified?: Yes, Notify in am 08/29/24 06:53 Consult Physician Routine Consulting Provider: Seble Nash Consult Reason/Comments: Hypotension, Sepsis Do you want consulting provider notified?: Already Contacted 08/29/24 08:13 Consult Physician Stat Consulting Provider: Bill Hernandez Consult Reason/Comments: Tumor Lysis Syndrome Do you want consulting provider notified?: Yes Primary care physician: Corine Tay MD Hospital Course: Patient is a 69-year-old male with past medical history significant for T-cell, congestive heart failure, GERD who presented to the ER for altered mental status and fever of unknown origin. Patient's is at the bedside and provides most of the history. states that he had recent hospital admission at [facility] went home but then on Tuesday he was not drinking or eating well. She states that he steadily declined over the weekend and became increasingly confused and had concerns of dehydration. 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 López from [facility]. She states his last chemotherapy session was in [address] showed spleen mets. She states he was endorsing abdominal pain. She denies any nausea, vomiting, or diarrhea. ED documentation reviewed. In the ED patient was treated with 3 L bolus of 0.9% NS and started on Levophed for hypotension. Vitals on admission Temperature 97.7 F, heart rate 122, respiratory rate 20, blood pressure 111/75, O2 saturation 100% on room air EKG independently interpreted as sinus tachycardia with rate 117 and QTc of 459 ms CXR shows chronic changes without acute peripheral pulmonary infiltrates CT of abdomen pelvis shows questionable right hilar lung mass and groundglass opacities in the right lung. Small ascites, stable compression fractures in upper lumbar spine, moderate hiatal hernia, diffusely thickened bladder wall Labs on admission show WBCs one 1011.7 platelets 81. PTT 40.4, INR4.1, PTT 35.2. Sodium 129, potassium 4.8, chloride 97, bicarb 17, BUN 57, creatinine 2.41, glucose 76. Lactate 7.7. Uric acid 11.3. ALP 327. UA shows dark brown, cloudy urine. Viral 4 Plex is negative. 08/31/24 Patient seen and examined at bedside in intensive care unit. Patient was febrile this morning with a temperature of 101.4 F. Patient's pressures continue to remain low despite vasopressors. Continues to have results of hypoglycemia and received a few amps of dextrose. His D10 was increased today to 80 mL/h. Patient's urine output is 5 cc or less per hour. Patient's prognosis is extremely guarded. Hematology oncology had discussion with next of kin and he will be discharged to hospice. Physical Exam: GENERAL EXAM: Obtunded, occasionally cries out in pain, hypotensive, tachycardic HEAD: Normocephalic and atraumatic EYES: Normal reaction of pupils, equal size. NOSE: Clear with pink turbinates. THROAT: No erythema or exudates. Dry mucous membranes. NECK: No masses, no JVD. CHEST: No chest wall deformity. LUNGS: Equal air entry with no crackles, wheeze, rhonchi or dullness. Room air CVS: S1 and S2 normal with no audible murmur, regular rhythm. No extra heart sounds ABDOMEN: No hepatosplenomegaly, active bowel sounds, no guarding or rigidity. SPINE: No scoliosis or deformity SKIN: No rashes CENTRAL NERVOUS SYSTEM: No focal deficits, tone is normal in all 4 extremities. EXTREMITIES: There is bipedal edema. No clubbing or cyanosis. Peripheral pulses are weak but palpable. LYMPH: Lymphadenopathy in the left axilla and right groin Dictation was produced using [employer] dictation software. please excuse any grammatical, word or spelling errors. A total of minutes of 20 minutes were spent preparing this complex discharge summary. Plan - Discharge Summary New Discharge Prescriptions: Continue Prochlorperazine [Compazine] 10 mg PO Q6H PRN PRN Reason: Nausea diphenhydrAMINE [Benadryl] 50 mg PO Q4H Famotidine [Pepcid] 20 mg PO BID HYDROcodone/APAP 5-325MG [[place] 5-325] 1 tab PO Q6HR PRN PRN Reason: Pain Acetaminophen Tab [Tylenol] 500 mg PO Q6H PRN PRN Reason: Shortness Of Breath Discharge Medication List Prochlorperazine [Compazine] 10 mg PO Q6H PRN 10/27/23 [History] Acetaminophen Tab [Tylenol] 500 mg PO Q6H PRN 08/28/24 [History] Famotidine [Pepcid] 20 mg PO BID 08/28/24 [History] HYDROcodone/APAP 5-325MG [[place] 5-325] 1 tab PO Q6HR PRN 08/28/24 [History] diphenhydrAMINE [Benadryl] 50 mg PO Q4H 08/28/24 [History] Follow up Appointment(s)/Referral(s): None,Stated [REFERRING] - 1-2 days
[2024-08-31] MEDS ORDERED: HYDROCORTISONE SUCCINATE 100 MG/2 ML VIAL IV SCH (16:00)
--- NOTE | 2024-08-31 18:44 | P.PN ---
Subjective Progress Note Date: 08/31/24 Pt remains in ICU. Unfortunately pts condition declined this afternoon. Had family meeting with spouse today Objective - Vital Signs Vital signs: Vital Signs Temp 101.4 F H 08/31/24 08:00 Pulse 131 H 08/31/24 11:15 Resp 20 08/31/24 11:15 BP 90/69 08/31/24 11:15 Pulse Ox 94 L 08/31/24 11:15 FiO2 Intake & Output 08/30/24 08/31/24 08/31/24 18:59 06:59 18:59 Intake Total 3067.000 3719.442 800 Output Total 78 140 7 Balance 2989.000 3579.442 793 Weight 79.8 kg 83.8 kg 83.8 kg Intake: IV 2740 3255 800 ACETAMINOPHEN IV (For NPO 100 ) 1,000 mg In Empty Bag 1 bag @ 400 mls/hr IVPB ONCE STA Rx#:[id number] Dextrose 10% in Water 500 540 780 300 ml In Empty Bag 1 bag @ 80 mls/hr IV .Q6H15M [facility] Rx#:[id number] Dextrose 5% in Water 1, 1725 1950 500 000 ml @ 150 mls/hr IV . Q7H40M [facility] with Sodium Bicarb (1 Meq/ml) 150 ml Rx#:[id number] Linezolid 600 mg In 300 300 Dextrose/Water 1 300ml. bag @ 150 mls/hr IVPB Q12HR@0000,1200 [facility] Rx#: [id number] Piperacillin-Tazobactam 3 75 225 .375 gm In Sodium Chloride 0.9% 100 ml @ 25 mls/hr IVPB Q8H [facility] Rx#: [id number] Intake, IV Titration 254.000 464.442 Amount Norepinephrine 4 mg In 254.000 464.442 Sodium Chloride 0.9% 250 ml @ 0.03 MCG/KG/MIN 8. 399 mls/hr IV .Q24H [facility] Rx#:[id number] Blood Product 73 Pooled Cryoprecipitate 73 Unit [id number] Output: Urine 78 140 7 Other: Voiding Method Indwelling Catheter Indwelling Catheter - Labs CBC & Chem 7: 08/31/24 05:55 08/31/24 10:38 Labs: Abnormal Lab Results - Last 24 Hours (Table) 08/30/24 08/30/24 08/30/24 Range/Units 12:01 21:50 22:12 WBC (3.8-10.6) k/uL RBC (4.30-5.90) m/uL Hgb (13.0-17.5) gm/dL Hct (39.0-53.0) % MCV (80.0-100.0) fL PT (10.0-12.5) sec INR (<1.2) APTT (22.0-30.0) sec Fibrinogen (200-500) mg/dL Sodium (137-145) mmol/L Chloride (98-107) mmol/L Carbon Dioxide (22-30) mmol/L BUN (9-20) mg/dL Creatinine (0.66-1.25) mg/dL Glucose (74-99) mg/dL POC Glucose (mg/dL) 47 L* 64 L 116 H (70-110) mg/dL Uric Acid (3.5-8.5) mg/dL Calcium (8.4-10.2) mg/dL Total Bilirubin (0.2-1.3) mg/dL Alkaline Phosphatase (38-126) U/L Albumin (3.5-5.0) g/dL 08/31/24 08/31/24 08/31/24 Range/Units 00:00 02:01 05:55 WBC 106.3 H* (3.8-10.6) k/uL RBC 2.92 L (4.30-5.90) m/uL Hgb 9.6 L (13.0-17.5) gm/dL Hct 29.9 L (39.0-53.0) % MCV 102.7 H (80.0-100.0) fL PT (10.0-12.5) sec INR (<1.2) APTT (22.0-30.0) sec Fibrinogen (200-500) mg/dL Sodium (137-145) mmol/L Chloride (98-107) mmol/L Carbon Dioxide (22-30) mmol/L BUN (9-20) mg/dL Creatinine (0.66-1.25) mg/dL Glucose (74-99) mg/dL POC Glucose (mg/dL) 69 L 66 L (70-110) mg/dL Uric Acid (3.5-8.5) mg/dL Calcium (8.4-10.2) mg/dL Total Bilirubin (0.2-1.3) mg/dL Alkaline Phosphatase (38-126) U/L Albumin (3.5-5.0) g/dL 08/31/24 08/31/24 08/31/24 Range/Units 05:55 05:55 06:13 WBC (3.8-10.6) k/uL RBC (4.30-5.90) m/uL Hgb (13.0-17.5) gm/dL Hct (39.0-53.0) % MCV (80.0-100.0) fL PT 39.9 H (10.0-12.5) sec INR 4.0 H (<1.2) APTT 60.8 H (22.0-30.0) sec Fibrinogen 80 L (200-500) mg/dL Sodium 135 L (137-145) mmol/L Chloride 95 L (98-107) mmol/L Carbon Dioxide 12 L (22-30) mmol/L BUN 72 H (9-20) mg/dL Creatinine 3.87 H (0.66-1.25) mg/dL Glucose 42 L* (74-99) mg/dL POC Glucose (mg/dL) 57 L (70-110) mg/dL Uric Acid 10.1 H (3.5-8.5) mg/dL Calcium 7.6 L (8.4-10.2) mg/dL Total Bilirubin 2.1 H (0.2-1.3) mg/dL Alkaline Phosphatase 321 H (38-126) U/L Albumin 1.7 L (3.5-5.0) g/dL 08/31/24 08/31/24 Range/Units 08:06 10:22 WBC (3.8-10.6) k/uL RBC (4.30-5.90) m/uL Hgb (13.0-17.5) gm/dL Hct (39.0-53.0) % MCV (80.0-100.0) fL PT (10.0-12.5) sec INR (<1.2) APTT (22.0-30.0) sec Fibrinogen (200-500) mg/dL Sodium (137-145) mmol/L Chloride (98-107) mmol/L Carbon Dioxide (22-30) mmol/L BUN (9-20) mg/dL Creatinine (0.66-1.25) mg/dL Glucose (74-99) mg/dL POC Glucose (mg/dL) 64 L 69 L (70-110) mg/dL Uric Acid (3.5-8.5) mg/dL Calcium (8.4-10.2) mg/dL Total Bilirubin (0.2-1.3) mg/dL Alkaline Phosphatase (38-126) U/L Albumin (3.5-5.0) g/dL Microbiology - Last 24 Hours (Table) 08/29/24 18:12 Nasal Screen MRSA/MSSA - Final Nasal Swab 08/29/24 01:16 Blood Culture - Preliminary Blood Assessment and Plan (1) T-cell lymphoma Status: Acute Priority: High Code(s): C85.90 - NON-HODGKIN LYMPHOMA, UNSPECIFIED, UNSPECIFIED SITE SNOMED Code(s): 987224931 (2) Altered mental status Status: Acute Priority: High Code(s): R41.82 - ALTERED MENTAL STATUS, UNSPECIFIED SNOMED Code(s): 435955123 (3) Leukocytosis Status: Acute Priority: High Code(s): D72.829 - ELEVATED WHITE BLOOD CELL COUNT, UNSPECIFIED SNOMED Code(s): 922127382 (4) Septic shock Status: Acute Priority: High Code(s): A41.9 - SEPSIS, UNSPECIFIED ORGANISM; R65.21 - SEVERE SEPSIS WITH SEPTIC SHOCK SNOMED Code(s): 82197438 (5) Weakness Status: Acute Priority: High Code(s): R53.1 - WEAKNESS SNOMED Code(s): 01166048 (6) Dehydration Status: Acute Priority: High Code(s): E86.0 - DEHYDRATION SNOMED Code(s): 79950314 Plan: Confusion, weakness, sepsis: Presented with weakness, confusion and decreased oral intake. Recently discharg ed form [place] and was supposed to f/u with his oncologist for concern of relapse of lymphoma -Lactic on admit 11.4, improved to 7.8. Pt hypotensive/tachycardic and has been restarted on levophed. Blood cultures negtive thus far. Fevers persisting. Continues IV abx started. -ID and pulm following T-cell lymphoma Significant history of T-cell lymphoma in 2019 and was treated by [address] Talbert at [facility]. Oncology history is limited but patient's states he received 2 cycles of CHOP but due to adverse effects treatment was stopped and then was switched to a different regimen which she is not aware of the name and patient has been in remission for the last 5 years. Patient was recently seen at [facility] and CT AP was obtained showing worsening upper abdominal mesenteric and retroperitoneal lymphadenopathy with splenomegaly and intervally new wedge-shaped hypodensities throughout the spleen. Patient was scheduled to follow-up with Dr. Talbert -Upon admit CT abdomen pelvis showing questionable right hilar lung mass and groundglass opacities in the right lung. Interval development of moderate hepatosplenomegaly. Small ascites. Diffuse urinary bladder wall thickening. CT chest ordered -WBC showing leukocytosis with WBC 110.3 with elevated myleocytes, metamyleocytes, promyleocytes, lymphocytes, eosinophils, and neutrophils with no blast cells noted upon reviewing peripheral smear. CBC today showing WBC 99.6, hgb9.6, plt 39 -Upon admit Uric acid was obtained, elevated at 12.9. Patient was given dose of Elitek for concern of TLS, with improvement in uric acid, 8.8 today. Kidney function worsening today, Nephrology following -Coags elevated, fibrinogen 88, concerning for possible DIC. S/p 1 dose cryoprecipitate. Repeat fibrinogen today 90, second dose cryoprecipitate ordered. Repeat DIC labs in the AM -Concern for relapse of his lymphoma, however will need to confirm diagnosis. LAD noted in left axilla and right groin. Ultrasounds have been ordered to further evaluate. Once pt more stable will try to obtain biopsy. Pt will likely need to be initiated on inpt chemo once stabilized. Awaiting records from his oncologist Dr. Talbert -Flow cytometry, cytogenetics, and FISH ordered, labs pending Had discussion with patient's spouse today regarding patient's poor prognosis and continued decline since admit, as well as comfort care measures. After further discussion, decided to place pt on hospice, which we feel is appropriate at this time. All questions and concerns were addressed Dr muir: I have seen and examined pt, performed H&P, developed impression and plan of care. Discussed with dictator. Agree with documentation, dictated as a scribe.
--- NOTE | 2024-09-01 14:51 | P.PN ---
Subjective Progress Note Date: 08/31/24 Principal diagnosis: Reason for follow-up is sepsis Patient is a 69-year-old male with a past medical history significant for reflux lymphoma with recent admission at the [facility] with the patient was treated for abdominal pain has been diagnosed with a constipation CT abdominal pelvis done at that facility shows worsening lymphadenopathy possible splenic infarct and rectal distention patient been brought to this facility concerning for generalized weakness and fever at home with concern for sepsis patient has been admitted to hospital started on possible antibiotic. On today's evaluation that is 08/31/2024, the patient did spike a temperature of 101.4 F at 8 a.m. the patient remains to be lethargic morning he is hypotensive requiring pressor support and is currently on 5 L nasal cannula oxygen no vomiting diarrhea and the changes reported by the nursing staff. Patient white count is 99.3 creatinine 3.87 blood cultures currently pending Objective - Vital Signs Vital signs: Vital Signs Temp 101.4 F H 08/31/24 08:00 Pulse 131 H 08/31/24 11:15 Resp 20 08/31/24 11:15 BP 90/69 08/31/24 11:15 Pulse Ox 94 L 08/31/24 11:15 FiO2 Intake & Output 08/30/24 08/31/24 08/31/24 18:59 06:59 18:59 Intake Total 3067.000 3719.442 800 Output Total 78 140 7 Balance 2989.000 3579.442 793 Weight 79.8 kg 83.8 kg 83.8 kg Intake: IV 2740 3255 800 ACETAMINOPHEN IV (For NPO 100 ) 1,000 mg In Empty Bag 1 bag @ 400 mls/hr IVPB ONCE STA Rx#:[id number] Dextrose 10% in Water 500 540 780 300 ml In Empty Bag 1 bag @ 80 mls/hr IV .Q6H15M [facility] Rx#:[id number] Dextrose 5% in Water 1, 1725 1950 500 000 ml @ 150 mls/hr IV . Q7H40M [facility] with Sodium Bicarb (1 Meq/ml) 150 ml Rx#:[id number] Linezolid 600 mg In 300 300 Dextrose/Water 1 300ml. bag @ 150 mls/hr IVPB Q12HR@0000,1200 [facility] Rx#: [id number] Piperacillin-Tazobactam 3 75 225 .375 gm In Sodium Chloride 0.9% 100 ml @ 25 mls/hr IVPB Q8H [facility] Rx#: [id number] Intake, IV Titration 254.000 464.442 Amount Norepinephrine 4 mg In 254.000 464.442 Sodium Chloride 0.9% 250 ml @ 0.03 MCG/KG/MIN 8. 399 mls/hr IV .Q24H [facility] Rx#:[id number] Blood Product 73 Pooled Cryoprecipitate 73 Unit [id number] Output: Urine 78 140 7 Other: Voiding Method Indwelling Catheter Indwelling Catheter - Exam GENERAL DESCRIPTION: An elderly male lying in bed in no distress RESPIRATORY SYSTEM: Unlabored breathing , decreased breath sounds at bases HEART: S1 S2 regular rate and rhythm , ABDOMEN: Soft , no tenderness EXTREMITIES: No edema feet - Labs CBC & Chem 7: 08/31/24 05:55 08/31/24 10:38 Labs: Abnormal Lab Results - Last 24 Hours (Table) 08/30/24 08/30/24 08/30/24 Range/Units 12:01 21:50 22:12 WBC (3.8-10.6) k/uL RBC (4.30-5.90) m/uL Hgb (13.0-17.5) gm/dL Hct (39.0-53.0) % MCV (80.0-100.0) fL PT (10.0-12.5) sec INR (<1.2) APTT (22.0-30.0) sec Fibrinogen (200-500) mg/dL Sodium (137-145) mmol/L Chloride (98-107) mmol/L Carbon Dioxide (22-30) mmol/L BUN (9-20) mg/dL Creatinine (0.66-1.25) mg/dL Glucose (74-99) mg/dL POC Glucose (mg/dL) 47 L* 64 L 116 H (70-110) mg/dL Uric Acid (3.5-8.5) mg/dL Calcium (8.4-10.2) mg/dL Total Bilirubin (0.2-1.3) mg/dL Alkaline Phosphatase (38-126) U/L Albumin (3.5-5.0) g/dL 08/31/24 08/31/24 08/31/24 Range/Units 00:00 02:01 05:55 WBC 106.3 H* (3.8-10.6) k/uL RBC 2.92 L (4.30-5.90) m/uL Hgb 9.6 L (13.0-17.5) gm/dL Hct 29.9 L (39.0-53.0) % MCV 102.7 H (80.0-100.0) fL PT (10.0-12.5) sec INR (<1.2) APTT (22.0-30.0) sec Fibrinogen (200-500) mg/dL Sodium (137-145) mmol/L Chloride (98-107) mmol/L Carbon Dioxide (22-30) mmol/L BUN (9-20) mg/dL Creatinine (0.66-1.25) mg/dL Glucose (74-99) mg/dL POC Glucose (mg/dL) 69 L 66 L (70-110) mg/dL Uric Acid (3.5-8.5) mg/dL Calcium (8.4-10.2) mg/dL Total Bilirubin (0.2-1.3) mg/dL Alkaline Phosphatase (38-126) U/L Albumin (3.5-5.0) g/dL 08/31/24 08/31/24 08/31/24 Range/Units 05:55 05:55 06:13 WBC (3.8-10.6) k/uL RBC (4.30-5.90) m/uL Hgb (13.0-17.5) gm/dL Hct (39.0-53.0) % MCV (80.0-100.0) fL PT 39.9 H (10.0-12.5) sec INR 4.0 H (<1.2) APTT 60.8 H (22.0-30.0) sec Fibrinogen 80 L (200-500) mg/dL Sodium 135 L (137-145) mmol/L Chloride 95 L (98-107) mmol/L Carbon Dioxide 12 L (22-30) mmol/L BUN 72 H (9-20) mg/dL Creatinine 3.87 H (0.66-1.25) mg/dL Glucose 42 L* (74-99) mg/dL POC Glucose (mg/dL) 57 L (70-110) mg/dL Uric Acid 10.1 H (3.5-8.5) mg/dL Calcium 7.6 L (8.4-10.2) mg/dL Total Bilirubin 2.1 H (0.2-1.3) mg/dL Alkaline Phosphatase 321 H (38-126) U/L Albumin 1.7 L (3.5-5.0) g/dL 08/31/24 08/31/24 Range/Units 08:06 10:22 WBC (3.8-10.6) k/uL RBC (4.30-5.90) m/uL Hgb (13.0-17.5) gm/dL Hct (39.0-53.0) % MCV (80.0-100.0) fL PT (10.0-12.5) sec INR (<1.2) APTT (22.0-30.0) sec Fibrinogen (200-500) mg/dL Sodium (137-145) mmol/L Chloride (98-107) mmol/L Carbon Dioxide (22-30) mmol/L BUN (9-20) mg/dL Creatinine (0.66-1.25) mg/dL Glucose (74-99) mg/dL POC Glucose (mg/dL) 64 L 69 L (70-110) mg/dL Uric Acid (3.5-8.5) mg/dL Calcium (8.4-10.2) mg/dL Total Bilirubin (0.2-1.3) mg/dL Alkaline Phosphatase (38-126) U/L Albumin (3.5-5.0) g/dL Microbiology - Last 24 Hours (Table) 08/29/24 18:12 Nasal Screen MRSA/MSSA - Final Nasal Swab 08/29/24 01:16 Blood Culture - Preliminary Blood Assessment and Plan (1) Leukocytosis Status: Acute Priority: High Code(s): D72.829 - ELEVATED WHITE BLOOD CELL COUNT, UNSPECIFIED SNOMED Code(s): 865534607 (2) Septic shock Status: Acute Priority: High Code(s): A41.9 - SEPSIS, UNSPECIFIED ORGANISM; R65.21 - SEVERE SEPSIS WITH SEPTIC SHOCK SNOMED Code(s): 84844617 Plan: 1patient presented hospital with sepsis in this patient who did have fever tachycardia concerning likely for an intra-abdominal as the patient did have abdominal distention as well as tenderness with recent CT done at [facility] was suggestive of rectal wall thickening in addition to the hepatosplenomegaly and possible splenic infarcts and need to cover for the enteric gram-negative with the likely pathogen both aerobes and anaerobes and a question of possible pneumonia 2patient with renal insufficiency high risk of nephrotoxicity from vancomycin which has been discontinued 3patient remains to be critically ill and is currently being treated with Zosyn and Zyvox while waiting for the culture to finalize at the bedside question concern answered prognosis remains to be guarded Dictation was produced using [employer] software. please excuse any grammatical, word or spelling errors. Time with Patient: Less than 30
== END 2024-08-31 16:33 | disposition hospice, inpatient (51) | DRG 871 ==
LOC: EC 10:41 → 3SCARD 15:50 → 2SICU 08-29 06:57
PROVIDERS: ADMIT Hospitalist; ATTEND Hospitalist
PROC: 3E043XZ Introduction of Vasopressor into Central Vein, Percutaneous Approach (ICD-10-PCS; principal; 2024-08-28)
DX: A41.9 Sepsis, unspecified organism (principal); D65 Disseminated intravascular coagulation [defibrination syndrome]; E88.3 Tumor lysis syndrome; G92.8 Other toxic encephalopathy; N17.0 Acute kidney failure with tubular necrosis; R65.21 Severe sepsis with septic shock; C91.50 Adult T-cell lymphoma/leukemia (HTLV-1-associated) not having achieved remission; I50.22 Chronic systolic (congestive) heart failure; R64 Cachexia; D64.9 Anemia, unspecified; M48.56XA Collapsed vertebra, not elsewhere classified, lumbar region, initial encounter for fracture; E87.20 Acidosis, unspecified; E87.1 Hypo-osmolality and hyponatremia; R18.8 Other ascites; E16.2 Hypoglycemia, unspecified; E86.0 Dehydration; E86.1 Hypovolemia; H91.90 Unspecified hearing loss, unspecified ear; K59.00 Constipation, unspecified; K21.9 Gastro-esophageal reflux disease without esophagitis; R91.8 Other nonspecific abnormal finding of lung field; K44.9 Diaphragmatic hernia without obstruction or gangrene; Z66 Do not resuscitate; Z51.5 Encounter for palliative care; Z87.891 Personal history of nicotine dependence; Z20.822 Contact with and (suspected) exposure to COVID-19; Z71.3 Dietary counseling and surveillance; Z68.22 Body mass index [BMI] 22.0-22.9, adult; Z92.21 Personal history of antineoplastic chemotherapy; Z79.899 Other long term (current) drug therapy; Z28.21 Immunization not carried out because of patient refusal
CPT/HCPCS: 36415; 51702; 70450; 71046; 71250; 74176; 80053; 81001; 82550; 83605; 83690; 83735; 83880; 84100; 84132; 84484; 84550; 85025; 85384; 85610; 85730; 86850; 86900; 86901; 87040; 87070; 87636; 93005; 93306; 96361; 96365; 96366; 96367; 96368; 96375; 96376; 99284; 99285

== ENCOUNTER 2024-08-31 15:39 | Inpatient (IN) | payer MEDICAID ==
[2024-08-31] MEDS ORDERED: LORazepam 2 MG/ML INJ IV PRN (16:14)
[2024-08-31] MEDS ORDERED: DRY MOUTH SPRAY 59 SPRAY/59 ML SPRAY MUCOUS MEM PRN (16:14)
[2024-08-31] MEDS ORDERED: GLYCOPYRROLATE 0.2 MG/ML 2 ML VIAL IVP PRN (16:14)
[2024-08-31] MEDS ORDERED: ONDANSETRON 4 MG/2 ML VIAL IVP PRN (16:14)
[2024-08-31] MEDS ORDERED: ACETAMINOPHEN SUPPOSITORY 650 MG SUPP RECTAL PRN (16:14)
[2024-08-31] MEDS ORDERED: MORPHINE SULFATE 100 MG in SODIUM CHLORIDE 0.9% 90 ML IV SCH (17:00)
[2024-08-31] MEDS ORDERED: SCOPOLAMINE 1 MG/72 HR PATCH TRANSDERM SCH (17:00)
[2024-08-31] MEDS: MORPHINE SULFATE 4 MG/ML SYRINGE IV PRN (17:09)
[2024-08-31] MEDS: ATROPINE OPHTH SOLN 1% 5ML BTL SUBLINGUAL PRN (17:16)
== END 2024-08-31 18:04 | disposition expired | DRG 951 ==
LOC: 2SICU 16:34
PROVIDERS: ADMIT Hospitalist; ATTEND Hospitalist
DX: Z51.5 Encounter for palliative care (principal); Z66 Do not resuscitate